=== PATIENT | male | born 1940 | race Caucasian/White ===

== ENCOUNTER 2017-05-14 16:42 | Inpatient (IN) | payer OTHER ==
[~2017-05-14] VITALS: Ht 166.4 cm; Wt 59.6 kg
[~2017-05-14 16:42] MED LIST: ATOR10TA82 PO; CARV6.252 PO; LISI2.5T5 PO; LSX20 PO; WARF5TAB7 PO
[2017-05-14] MEDS ORDERED: ALBUT/IPRATROP 3MG/0.5MG NEB 3 ML VIAL INH STA (16:55)
[2017-05-14 17:35] LABS: BASO % 0.4 %; BASO ABS # 0.05 K/uL (0-0.2); EOS % 1.1 %; HEMATOCRIT 44.5 % (42-52); IG% 3.1 %; LYMPH % 7.2 %; MEAN CELL VOLUME 108.3 fL (80-100); MEAN CORPUSCULAR HEMOGLOBIN 35.8 pg (25-34); MONO % 11.3 %; NEUT % 76.9 %; PLATELET COUNT 286 K/uL (130-400); RED BLOOD COUNT 4.11 M/uL (4.7-6.1); WHITE BLOOD COUNT 11.15 K/uL (4.8-10.8)
[2017-05-14 17:52] LABS: ALT/SGPT 20 U/L (12-78); AST/SGOT 19 U/L (15-37); BLOOD UREA NITROGEN 18 mg/dl (7-18); BUN/CREATININE RATIO 16.7 (10-20); CALCIUM 8.3 mg/dl (8.5-10.1); CARBON DIOXIDE 39 mmol/L (21-32); CHLORIDE 100 mmol/L (98-107); GLUCOSE 59 mg/dl (70-99); MAGNESIUM 2.6 mg/dl (1.8-2.4); POTASSIUM 4.2 mmol/L (3.5-5.1); SODIUM 141 mmol/L (136-145)
[2017-05-14 17:57] LABS: ALB/GLOB RATIO 0.9 (0.9-2); ALKALINE PHOSPHATASE 76 U/L (45-117); C-REACTIVE PROTEIN 3.43 mg/dl (0-0.29); CKMB/CK RATIO 2.5 (0-3.0); INR 3.5 (0.9-1.1); PARTIAL THROMBOPLASTIN RATIO 1.8; PROTHROMBIN TIME (PATIENT) 39.3 SECONDS (9.0-12.0)
[2017-05-14 17:58] LABS: ANISOCYTOSIS PRESENT; COMPLETE YES
[2017-05-14 18:03] LABS: VEN BLD GAS O2 SATURATION < 60.0 %; VEN BLOOD GAS BASE EXCESS 11.4 mmol/L; VENOUS BLOOD GAS PCO2 84 mmHg (38.0-50.0); VENOUS BLOOD GAS PO2 24 mmHg
[2017-05-14] MEDS ORDERED: WARF5TAB7 PO (18:03)
[2017-05-14] MEDS ORDERED: LISI-461 PO (18:03)
--- NOTE | 2017-05-14 18:35 | DIAGNOSTIC IMAGING REPORT ---
CHEST ONE VIEW PORTABLE HISTORY: Sepsis COMPARISON: Chest 11/16/2016. FINDINGS: The heart remains mildly enlarged. The lungs remain mildly hyperexpanded. No new focal lung consolidations to suggest pneumonia. No evidence for pulmonary edema. IMPRESSION: Stable mild cardiomegaly and hyperinflation of the lungs. Electronically signed by: Yrn Novoa M.D. 05/14/2017 6:34 PM Dictated Date/Time: 05/14/2017 6:33 PM
[2017-05-14] MEDS ORDERED: LEVAQUIN 750MG / 150ML D5W IV STA (18:47)
[2017-05-14 19:23] LABS: MANUAL MICROSCOPIC REQUIRED? NO; REVIEW REQ? NO; URINE APPEARANCE CLEAR (CLEAR); URINE BILIRUBIN NEG (NEG); URINE COLOR DK YELLOW; URINE NITRITE NEG (NEG); URINE SPECIFIC GRAVITY 1.021 (1.000-1.030); UROBILINOGEN NEG (NEG); ZZUR CULT IF INDIC CLEAN CATCH YES
--- NOTE | 2017-05-14 20:02 | EMERGENCY ROOM VISIT NOTE ---
History Report prepared by Anabel: Karla Curtis Under the Supervision of: Dr. Eros Borjas D.O. First contact with patient: 16:48 Chief Complaint: CARDIAC ASSESSMENT Stated Complaint: DOCTOR REFERRED;CARDIAC ASSESSMENT Nursing Triage Summary: triage note: pt reports he was seen at urgent care and sent to ed for further eval. pt reports cold symptoms x 9 days. pt reports cough with green sputum "i have been warm and cold." pt when asked if pt short of breath pt reports "no more than usual." History of Present Illness The patient is a 76 year old male who presents to the Emergency Room with complaints of persistent cough starting 9 days ago. His symptoms started with cough, sneezing, and congestion. He initially thought that he had a cold. He went to urgent care today after he found his symptoms were not improving. He received a breathing treatment there which helped somewhat. His cough is productive of a green sputum. He is SOB. He reports swelling in his legs. He denies any hemoptysis, chest pain, nausea, vomiting, or urinary symptoms. He was diagnosed with CHF at the beginning of the year. He is currently on Lasix. He is on a blood thinner. He admits to chewing tobacco. He has been taking his medications. He is not on oxygen normally. Source of History: patient Onset: 9 days ago Position: other (global) Quality: other (cough) Timing: other (persistent) Associated Symptoms: + SOB, No chest pain, No nausea, No vomiting, No urinary symptoms Note: Pt reports leg swelling. Pt denies hemoptysis. Review of Systems See HPI for pertinent positives & negatives. A total of 10 systems reviewed and were otherwise negative. Past Medical & Surgical Medical Problems: (1) Acute respiratory failure with hypoxia and hypercapnia (2) Cardiomyopathy (3) CHF (congestive heart failure) (4) CHF exacerbation Family History FH: heart disease Social History Smoking Status: Former Smoker Marital Status: Housing Status: lives with significant other Occupation Status: retired Current/Historical Medications Scheduled Atorvastatin (Lipitor), 10 MG PO QPM Carvedilol (Coreg), 6.25 MG PO BID Furosemide (Furosemide), 20 MG PO QAM Lisinopril (Lisinopril), 10 MG PO QAM Warfarin Sod (Jantoven), 7.5 MG PO WEDNESDAY AND WEDNESDAY Warfarin Sod (Jantoven), 5 MG PO DIRECTED Allergies Coded Allergies: Prednisone (Verified Allergy, Severe, SWELLING, TACHYCARDIA, RENAL FAILURE , 05/14/17) Physical Exam Vital Signs Date Time Temp Pulse Resp B/P (MAP) Pulse Ox O2 Delivery O2 Flow Rate FiO2 05/14/17 20:05 97 Nasal Cannula 3.0 05/14/17 20:01 120/56 05/14/17 20:00 60 22 86 Room Air 05/14/17 19:31 129/61 05/14/17 19:30 66 20 95 Nasal Cannula 3.0 05/14/17 19:01 121/60 05/14/17 19:00 58 19 97 Nasal Cannula 3.0 05/14/17 18:54 64 26 126/50 97 Nasal Cannula 3.0 05/14/17 17:19 94 Nasal Cannula 4.0 05/14/17 17:04 60 05/14/17 16:47 36.7 69 20 128/69 79 Room Air Physical Exam GENERAL: Patient is awake, alert, and somewhat anxious, but comfortable. EYES: The conjunctivae are clear. The pupils are round and reactive. EARS, NOSE, MOUTH AND THROAT: The nose is without any evidence of any deformity. Mucous membranes are moist tongue is midline NECK: Slight JVD noted, neck is supple. RESPIRATORY: Lung sounds diminished in all lung coronado, significant tachypnea and conversational dyspnea noted. CARDIOVASCULAR: Regular rate and rhythm noted there no murmurs notes to auscultation. GASTROINTESTINAL: The abdomen is soft. Bowel sounds are present in all quadrants. Abdomen is nontender MUSCULOSKELETAL/EXTREMITIES: There is no evidence of gross deformity full range of motion is noted in the hips and shoulders SKIN: Pedal edema bilaterally which is significant. NEUROLOGIC: Patient is awake alert and oriented x3 Medical Decision & Procedures ER Provider Diagnostic Interpretation: X-ray results as stated below per interpretation by me and the radiologist. CHEST ONE VIEW PORTABLE HISTORY: Sepsis COMPARISON: Chest 11/16/2016. FINDINGS: The heart remains mildly enlarged. The lungs remain mildly hyperexpanded. No new focal lung consolidations to suggest pneumonia. No evidence for pulmonary edema. IMPRESSION: Stable mild cardiomegaly and hyperinflation of the lungs. Electronically signed by: Yrn Novoa M.D. 05/14/2017 6:34 PM Dictated Date/Time: 05/14/2017 6:33 PM Laboratory Results 05/14/17 17:15 Red Blood Count 4.11, Mean Corpuscular Volume 108.3, Mean Corpuscular Hemoglobin 35.8, Mean Corpuscular Hemoglobin Concent 33.0, Mean Platelet Volume 11.0, Neutrophils (%) (Auto) 76.9, Lymphocytes (%) (Auto) 7.2, Monocytes (%) ( Auto) 11.3, Eosinophils (%) (Auto) 1.1, Basophils (%) (Auto) 0.4, Neutrophils # (Auto) 8.57, Lymphocytes # (Auto) 0.80, Monocytes # (Auto) 1.26, Eosinophils # ( Auto) 0.12, Basophils # (Auto) 0.05 05/14/17 17:15 Test 05/14/17 17:15 05/14/17 17:29 05/14/17 17:48 05/14/17 18:45 White Blood Count 11.15 K/uL (4.8-10.8) Red Blood Count 4.11 M/uL (4.7-6.1) Hemoglobin 14.7 g/dL (14.0-18.0) Hematocrit 44.5 % (42-52) Mean Corpuscular Volume 108.3 fL (80-100) Mean Corpuscular Hemoglobin 35.8 pg (25-34) Mean Corpuscular Hemoglobin Concent 33.0 g/dl (32-36) Platelet Count 286 K/uL (130-400) Mean Platelet Volume 11.0 fL (7.4-10.4) Neutrophils (%) (Auto) 76.9 % Lymphocytes (%) (Auto) 7.2 % Monocytes (%) (Auto) 11.3 % Eosinophils (%) (Auto) 1.1 % Basophils (%) (Auto) 0.4 % Neutrophils # (Auto) 8.57 K/uL (1.4-6.5) Lymphocytes # (Auto) 0.80 K/uL (1.2-3.4) Monocytes # (Auto) 1.26 K/uL (0.11-0.59) Eosinophils # (Auto) 0.12 K/uL (0-0.5) Basophils # (Auto) 0.05 K/uL (0-0.2) RDW Standard Deviation 88.5 fL (36.4-46.3) RDW Coefficient of Variation 22.1 % (11.5-14.5) Immature Granulocyte % (Auto) 3.1 % Immature Granulocyte # (Auto) 0.35 K/uL (0.00-0.02) Nucleated RBC Absolute Count (auto) 0.06 K/uL (0-0) Nucleated Red Blood Cells % 0.6 % Anisocytosis PRESENT Macrocytosis PRESENT Erythrocyte Sedimentation Rate 15 mm/hr (0-14) Prothrombin Time 39.3 SECONDS (9.0-12.0) Prothromb Time International Ratio 3.5 (0.9-1.1) Activated Partial Thromboplast Time 45.9 SECONDS (21.0-31.0) Partial Thromboplastin Ratio 1.8 D-Dimer < 190 ug/L FEU (0-500) Anion Gap 2.0 mmol/L (3-11) Est Creatinine Clear Calc Drug Dose 48.8 ml/min Estimated GFR () 76.2 Estimated GFR (Non- 65.8 BUN/Creatinine Ratio 16.7 (10-20) Calcium Level 8.3 mg/dl (8.5-10.1) Phosphorus Level 3.0 mg/dl (2.5-4.9) Magnesium Level 2.6 mg/dl (1.8-2.4) Total Bilirubin 0.7 mg/dl (0.2-1) Aspartate Amino Transf (AST/SGOT) 19 U/L (15-37) Alanine Aminotransferase (ALT/SGPT) 20 U/L (12-78) Alkaline Phosphatase 76 U/L (45-117) Total Creatine Kinase 79 U/L (39-308) Creatine Kinase MB 2.0 ng/ml (0.5-3.6) Creatine Kinase MB Ratio 2.5 (0-3.0) Troponin I < 0.015 ng/ml (0-0.045) C-Reactive Protein 3.43 mg/dl (0-0.29) Pro-B-Type Natriuretic Peptide 4659 pg/ml (0-900) Total Protein 6.8 gm/dl (6.4-8.2) Albumin 3.3 gm/dl (3.4-5.0) Globulin 3.5 gm/dl (2.5-4.0) Albumin/Globulin Ratio 0.9 (0.9-2) Bedside Lactic Acid Venous 0.53 mmol/L (0.90-1.70) Venous Blood pH 7.31 (7.36-7.41) Venous Blood Partial Pressure CO2 84 mmHg (38.0-50.0) Venous Blood Partial Pressure O2 24 mmHg Venous Blood HCO3 41 mmol/L Venous Blood Oxygen Saturation < 60.0 % Venous Blood Base Excess 11.4 mmol/L Urine Color DK YELLOW Urine Appearance CLEAR (CLEAR) Urine pH 5.0 (4.5-7.5) Urine Specific [place] 1.021 (1.000-1.030) Urine Protein NEG (NEG) Urine Glucose (UA) NEG (NEG) Urine Ketones NEG (NEG) Urine Occult Blood TRACE (NEG) Urine Nitrite NEG (NEG) Urine Bilirubin NEG (NEG) Urine Urobilinogen NEG (NEG) Urine Leukocyte Esterase MODERATE (NEG) Urine WBC (Auto) 10-30 /hpf (0-5) Urine RBC (Auto) 0-4 /hpf (0-4) Urine Hyaline Casts (Auto) 1-5 /lpf (0-5) Urine Epithelial Cells (Auto) 10-20 /lpf (0-5) Urine Bacteria (Auto) NEG (NEG) Test 05/14/17 20:15 Bedside Glucose 95 mg/dl (70-99) Laboratory results per my review. Medications Administered Medications (Trade) Dose Ordered Sig/Manjula Route Start Time Stop Time Status Last Admin Dose Admin Albuterol/ Ipratropium (Duoneb) 3 ml NOW STAT INH 05/14/17 16:55 05/14/17 16:56 DC 05/14/17 16:55 3 ML Levofloxacin (Levaquin / D5W) 750 mg NOW STAT IV 05/14/17 18:47 05/14/17 18:51 DC 05/14/17 18:56 750 MG ECG Indication: SOB/dyspnea Rate (beats per minute): 59 Rhythm: sinus bradycardia Findings: Q waves (Anterior), ST depression (Inferior), no ectopy Comparison ECG Date: 17-Nov-2016 Change: no significant change ED Course 164: The patient was evaluated in room B10. A complete history and physical examination were performed. 165: Duoneb 3 ml INH. 1847: Levofloxacin 750 mg IV. 1855: Upon reevaluation, the patient is resting comfortably. I discussed results and treatment plan with him. He verbalizes agreement and understanding. The patient will be evaluated for further management and care. 1934: I discussed the patient's case with CHANCE Banuelos - hospitalist. The patient will be evaluated for further management. Medical Decision Prior records/ancillary studies reviewed. Triage Nursing notes reviewed. Additional history obtained from the family. The patient's history was concerning for respiratory difficulties. Differential diagnosis: Etiologies such as infections, reactive airway disease, pneumonia, pneumothorax , COPD, CHF, cardiac ischemia, pulmonary embolism, musculoskeletal, gastrointestinal, as well as others were entertained. Medication Reconciliation: I attest that I have personally reviewed the patient' s current medications list. The patient is a 76-year-old male who presented to the emergency department for an evaluation of shortness of breath. The patient does have a history of congestive heart failure but states that his extremities are not more swollen than usual. His exam appeared to be consistent with significant bronchospasm. He was seen by his primary care physician's office and sent to the emergency department. He was given a DuoNeb prior to arrival. He was treated with a DuoNeb in the emergency Department as well as IV antibiotics. He does complain of productive cough with colored sputum. I discussed the patient's laboratory and radiographic studies with him. His d-dimer was negative. Chest x-ray did not show a definite pneumonia but clinically I feel the patient may have pneumonia. I discussed his case with the on-call [facility] hospitalist. They 've agreed to evaluate the patient in the emergency department for further management and disposition. Consults Time Called: [phone] Consulting Physician: CHANCE Banuelos - hospitalist Returned Call: [phone] I discussed the patient's case with him. The patient will be evaluated for further management. Impression Primary Impression: Acute bronchitis Additional Impressions: Hypoxia Respiratory acidosis SOB (shortness of breath) UTI (urinary tract infection) Scribe Attestation The scribe's documentation has been prepared under my direction and personally reviewed by me in its entirety. I confirm that the note above accurately reflects all work, treatment, procedures, and medical decision making performed by me. Departure Information Dispostion Being Evaluated By Hospitalist Referrals Kanika Daniels MD (PCP) Patient Instructions My [facility] [address] Problem Qualifiers Primary Impression: Acute bronchitis Bronchitis organism: unspecified organism Qualified Codes: J20.9 - Acute bronchitis, unspecified Additional Impressions: UTI (urinary tract infection) Urinary tract infection type: site unspecified Hematuria presence: without hematuria Qualified Codes: N39.0 - Urinary tract infection, site not specified
[2017-05-14] MEDS ORDERED: ZOLPIDEM TARTRATE 5 MG TAB PO PRN (20:15)
[2017-05-14] MEDS ORDERED: ACETAMINOPHEN 325 MG TAB PO PRN (20:15)
[2017-05-14] MEDS ORDERED: ONDANSETRON INJ 2 MG/ML 2 ML VIAL IV PRN (20:15)
[2017-05-14] MEDS ORDERED: NITROGLYCERIN 0.4 MG SL PER TAB CHARGE SL PRN (20:15)
[2017-05-14 20:43] VITALS: O2SAT 95
[2017-05-14] MEDS ORDERED: LEVALBUTEROL 1.25MG/0.5ML NEB INH PRN (21:00)
[2017-05-14] MEDS ORDERED: IPRATROPIUM BROMIDE NEB SOLN 0.02% 2.5 ML VIAL INH PRN (21:00)
[2017-05-14] MEDS ORDERED: LEVALBUTEROL/IPRATROPIUM NEB INH SCH (21:00)
[2017-05-14] MEDS: LEVALBUTEROL 1.25MG/0.5ML NEB INH SCH (21:00)
[2017-05-14] MEDS: IPRATROPIUM BROMIDE NEB SOLN 0.02% 2.5 ML VIAL INH SCH (21:00)
[2017-05-14 21:16] VITALS: BP 143/57; PULSE 57; TEMP 37; O2SAT 95; Ht 166.4 cm; Wt 59.6 kg
[2017-05-14] MEDS: CEFTRIAXONE SOD INJ 1 GM in DEXTROSE 5% ADD-VANTAGE 50ML 50 ML IV SCH (21:32)
[2017-05-14] MEDS: CARVEDILOL 6.25 MG TAB PO SCH (21:33)
[2017-05-14] MEDS: GUAIFENESIN 600 MG TABCR PO SCH (21:33)
[2017-05-14] MEDS: ATORVASTATIN 10 MG TAB PO SCH (21:34)
--- NOTE | 2017-05-14 22:01 | History and Physical ---
History & Physical Date & Time of Service: May 14, 2017 at 22:01 Chief Complaint: Acute Respiratory Failure With Hypoxia And Primary Care Physician: Kanika Daniels MD History of Present Illness Source: patient The patient is a 76-year-old male who presents to emergency department with a persistent cough productive of green sputum and shortness of breath that began 9 days prior to arrival. He was diagnosed with CHF earlier in the year and been continuing to take Lasix since that time, but has noted worsening swelling in his legs. He has not had any recent travel or sick exposures. Family History FH: heart disease Social History Smoking Status: Former Smoker Alcohol Use: none Drug Use: none Marital Status: Housing status: lives with significant other Occupational Status: retired Multi-Drug Resistant Organisms History of MDRO: No Allergies Coded Allergies: Prednisone (Verified Allergy, Severe, SWELLING, TACHYCARDIA, RENAL FAILURE , 05/14/17) Home Medications Scheduled Atorvastatin (Lipitor), 10 MG PO QPM Carvedilol (Coreg), 6.25 MG PO BID Furosemide (Furosemide), 20 MG PO QAM Lisinopril (Lisinopril), 10 MG PO QAM Warfarin Sod (Jantoven), 7.5 MG PO WEDNESDAY AND WEDNESDAY Warfarin Sod (Jantoven), 5 MG PO DIRECTED Review of Systems The patient denies chest pain, palpitations, sore throat, fevers, chills, sweats, weight change, nausea, vomiting, abdominal pain, pelvic pain, blood in urine or stool, dysuria, urinary frequency or urgency, headache, memory loss, rash, abnormal bruising or bleeding, imbalance, focal weakness, numbness or tingling in arms or legs, arthralgias or myalgias, back or neck pain, night sweats, or allergy symptoms. The review of systems is otherwise negative other than for that already noted above, and at least 10 systems have been reviewed. Physical Exam Vital Signs Date Time Temp Pulse Resp B/P (MAP) Pulse Ox O2 Delivery O2 Flow Rate FiO2 05/14/17 21:16 37.0 57 21 143/57 95 Room Air 05/14/17 20:31 150/55 05/14/17 20:06 60 19 94 Nasal Cannula 3.0 05/14/17 20:05 97 Nasal Cannula 3.0 05/14/17 20:01 120/56 05/14/17 20:00 60 22 86 Room Air 05/14/17 19:31 129/61 05/14/17 19:30 66 20 95 Nasal Cannula 3.0 05/14/17 19:01 121/60 05/14/17 19:00 58 19 97 Nasal Cannula 3.0 05/14/17 18:54 64 26 126/50 97 Nasal Cannula 3.0 05/14/17 17:19 94 Nasal Cannula 4.0 05/14/17 17:04 60 05/14/17 16:47 36.7 69 20 128/69 79 Room Air The patient is awake, looks thin, alert and oriented 3, normocephalic and atraumatic, lying in bed and in no acute distress. HEENT--PERRL, EOMI, mucous membranes and oropharynx dry. Neck--supple, no JVD or bruits, thyroid normal, trachea midline, no adenopathy. Heart--normal S1 and S2, no extra beats, no murmurs, rubs or gallops. Lungs--coarse breath sounds bilaterally, no respiratory distress, no accessory muscle use. Abdomen--normal bowel sounds and soft, nontender and nondistended, no hernias or masses, no organomegaly. Extremities--no cyanosis, clubbing. There is bilaterally pretibial 1+ pitting Edema. There are good distal pulses b/l. Dermatologic--early venous stasis changes bilaterally Neurologic--cranial nerves II through XII grossly intact. Rheumatologic--normal range of motion. Psychiatric--normal affect. Diagnostics Laboratory Results Results Past 24 Hours Test 05/14/17 17:15 05/14/17 17:29 05/14/17 17:48 05/14/17 18:45 Range/Units White Blood Count 11.15 4.8-10.8 K/uL Red Blood Count 4.11 4.7-6.1 M/uL Hemoglobin 14.7 14.0-18.0 g/dL Hematocrit 44.5 42-52 % Mean Corpuscular Volume 108.3 80-100 fL Mean Corpuscular Hemoglobin 35.8 25-34 pg Mean Corpuscular Hemoglobin Concent 33.0 32-36 g/dl Platelet Count 286 130-400 K/uL Mean Platelet Volume 11.0 7.4-10.4 fL Neutrophils (%) (Auto) 76.9 % Lymphocytes (%) (Auto) 7.2 % Monocytes (%) (Auto) 11.3 % Eosinophils (%) (Auto) 1.1 % Basophils (%) (Auto) 0.4 % Neutrophils # (Auto) 8.57 1.4-6.5 K/uL Lymphocytes # (Auto) 0.80 1.2-3.4 K/uL Monocytes # (Auto) 1.26 0.11-0.59 K/uL Eosinophils # (Auto) 0.12 0-0.5 K/uL Basophils # (Auto) 0.05 0-0.2 K/uL RDW Standard Deviation 88.5 36.4-46.3 fL RDW Coefficient of Variation 22.1 11.5-14.5 % Immature Granulocyte % (Auto) 3.1 % Immature Granulocyte # (Auto) 0.35 0.00-0.02 K/uL Nucleated RBC Absolute Count (auto) 0.06 0-0 K/uL Nucleated Red Blood Cells % 0.6 % Anisocytosis PRESENT Macrocytosis PRESENT Erythrocyte Sedimentation Rate 15 0-14 mm/hr Prothrombin Time 39.3 9.0-12.0 SECONDS Prothromb Time International Ratio 3.5 0.9-1.1 Activated Partial Thromboplast Time 45.9 21.0-31.0 SECONDS Partial Thromboplastin Ratio 1.8 D-Dimer < 190 0-500 ug/L FEU Sodium Level 141 136-145 mmol/L Potassium Level 4.2 3.5-5.1 mmol/L Chloride Level 100 98-107 mmol/L Carbon Dioxide Level 39 21-32 mmol/L Anion Gap 2.0 3-11 mmol/L Blood Urea Nitrogen 18 7-18 mg/dl Creatinine 1.10 0.60-1.40 mg/dl Est Creatinine Clear Calc Drug Dose 48.8 ml/min Estimated GFR () 76.2 Estimated GFR (Non- 65.8 BUN/Creatinine Ratio 16.7 10-20 Random Glucose 59 70-99 mg/dl Calcium Level 8.3 8.5-10.1 mg/dl Phosphorus Level 3.0 2.5-4.9 mg/dl Magnesium Level 2.6 1.8-2.4 mg/dl Total Bilirubin 0.7 0.2-1 mg/dl Aspartate Amino Transf (AST/SGOT) 19 15-37 U/L Alanine Aminotransferase (ALT/SGPT) 20 12-78 U/L Alkaline Phosphatase 76 45-117 U/L Total Creatine Kinase 79 39-308 U/L Creatine Kinase MB 2.0 0.5-3.6 ng/ml Creatine Kinase MB Ratio 2.5 0-3.0 Troponin I < 0.015 0-0.045 ng/ml C-Reactive Protein 3.43 0-0.29 mg/dl Pro-B-Type Natriuretic Peptide 4659 0-900 pg/ml Total Protein 6.8 6.4-8.2 gm/dl Albumin 3.3 3.4-5.0 gm/dl Globulin 3.5 2.5-4.0 gm/dl Albumin/Globulin Ratio 0.9 0.9-2 Bedside Lactic Acid Venous 0.53 0.90-1.70 mmol/L Venous Blood pH 7.31 7.36-7.41 Venous Blood Partial Pressure CO2 84 38.0-50.0 mmHg Venous Blood Partial Pressure O2 24 mmHg Venous Blood HCO3 41 mmol/L Venous Blood Oxygen Saturation < 60.0 % Venous Blood Base Excess 11.4 mmol/L Urine Color DK YELLOW Urine Appearance CLEAR CLEAR Urine pH 5.0 4.5-7.5 Urine Specific [place] 1.021 1.000-1.030 Urine Protein NEG NEG Urine Glucose (UA) NEG NEG Urine Ketones NEG NEG Urine Occult Blood TRACE NEG Urine Nitrite NEG NEG Urine Bilirubin NEG NEG Urine Urobilinogen NEG NEG Urine Leukocyte Esterase MODERATE NEG Urine WBC (Auto) 10-30 0-5 /hpf Urine RBC (Auto) 0-4 0-4 /hpf Urine Hyaline Casts (Auto) 1-5 0-5 /lpf Urine Epithelial Cells (Auto) 10-20 0-5 /lpf Urine Bacteria (Auto) NEG NEG Test 05/14/17 20:15 Range/Units Bedside Glucose 95 70-99 mg/dl Microbiology Results 05/14/17 Blood Culture, Received Pending 05/14/17 Blood Culture, Received Pending 05/14/17 Urine Culture, Received Pending Diagnostic Radiology Patient Name: JEEVAN GREEN Unit Number: [id number] Dictated: 05/14/171832 Transcribed: 05/14/171832 PA Printed Date/Time: [~ rep prt dt]/[~ rep prt tm] [~ rep ct labl] - [~ rep ct ivnm] [facility] [place] [address] Dictated: 05/14/171832 Transcribed: 05/14/171832 CESARIO Printed Date/Time: [~ rep prt dt]/[~ rep prt tm] [~ rep ct labl] - [~ rep ct ivnm] [~ rep ct add3]] CHEST ONE VIEW PORTABLE HISTORY: Sepsis COMPARISON: Chest 11/16/2016. FINDINGS: The heart remains mildly enlarged. The lungs remain mildly hyperexpanded. No new focal lung consolidations to suggest pneumonia. No evidence for pulmonary edema. IMPRESSION: Stable mild cardiomegaly and hyperinflation of the lungs. Electronically signed by: Yrn Novoa M.D. 05/14/2017 6:34 PM Dictated Date/Time: 05/14/2017 6:33 PM The status of this report is Signed. Draft = Not yet reviewed or approved by Radiologist. Signed = Reviewed and approved by Radiologist. <AttendingPhy></AttendingPhy> <FamilyPhy>Duy Alcantara PA-C</FamilyPhy> < PrimaryPhy>Kanika Daniels MD</PrimaryPhy> <UnitNumber>[id number]</UnitNumber > <VisitNumber>[id number]</VisitNumber> <PatientName>JEEVAN GREEN</ PatientName> <DateOfBirth>1940</DateOfBirth> <Location>[facility]</Location> < ServiceDate>05/14/17</ServiceDate> <MNE>ESINDI</MNE> <OrderingPhy>Eros Borjas D.O.</OrderingPhy> <OrderingPhyMNE>f rep ord dr robledo</OrderingPhyMNE> <DictatingPhyMNE>f rep dict dr robledo</DictatingPhyMNE> <CCListMNE>f rep ct mne</ CCListMNE> <AdmittingPhyMNE>f pt admit dr robledo</AdmittingPhyMNE> <AttendingPhyMNE >f pt attend dr robledo</AttendingPhyMNE> <ConsultingPhyMNE>f pt consult dr robledo</ConsultingPhyMNE> <FamilyPhyMNE>f pt fam dr robledo</FamilyPhyMNE> <OtherPhyMNE>f pt other dr robledo</OtherPhyMNE> < PrimaryPhyMNE>f pt prim care dr robledo</PrimaryPhyMNE> <ReferringPhyMNE>f pt referring dr robledo</ReferringPhyMNE> EKG EKG shows sinus bradycardia at 59 bpm, IVCD, 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 Impression Assessment and Plan Acute respiratory failure with hypoxia and hypercapnia secondary to acute bronchitis--the patient will be admitted to the telemetry unit. He'll be placed on ceftriaxone 1 g IV daily, levofloxacin 500 mg IV every 24 hours, guaifenesin extended release 600 mg by mouth twice a day, Xopenex/Atrovent nebulizer every 6 hours while awake and every 2 hours when necessary. Continue nasal cannula oxygen, titrate to keep pulse ox greater than or equal to 92%. Steroids are to be avoided in this case, as he's had a significant adverse reaction to prednisone in the past. Cardiomyopathy/hypertension/CHF--continue carvedilol 25 mg by mouth twice a day , lisinopril 10 mg by mouth every morning and furosemide 20 mg by mouth every morning. Warfarin will be held as INR is 3.5, and adjusted dosing can be resumed after labs return tomorrow. We'll repeat troponin in the a.m. Hyperlipidemia-continue atorvastatin 10 mg by mouth every afternoon. Hypoglycemia--blood sugar on admission was 59 and his PRP, but Accu-Cheks rechecked Later was 95. The patient had not eaten all day when the labs were first checked, and has not had issues with hypoglycemia in the past. Level of Care Telemetry Advanced Directives Existing Advance Directive: No Existing Living Will: No Existing Power of Director Outcomes: No Resuscitation Status FULL RESUSCITATION VTE Prophylaxis VTE Risk Assessment Done? Y/N: Yes Risk Level: Moderate Given or contraindicated: Warfarin (Coumadin)
[2017-05-15] VITALS (11 sets, daily range): BP systolic 89–126; BP diastolic 41–56; PULSE 51–86; TEMP 36.4–36.8; O2SAT 79–98
[2017-05-15] MEDS: IPRATROPIUM BROMIDE NEB SOLN 0.02% 2.5 ML VIAL INH SCH ×4 (04:15→18:33)
[2017-05-15] MEDS: LEVALBUTEROL 1.25MG/0.5ML NEB INH SCH ×4 (04:15→18:33)
[2017-05-15 05:39] LABS: HEMATOCRIT 38.8 % (42-52); MEAN CORPUSCULAR HEMOGLOBIN 35.4 pg (25-34); MEAN CORPUSCULAR HGB CONC 32.5 g/dl (32-36); MEAN PLATELET VOLUME 10.4 fL (7.4-10.4); PLATELET COUNT 228 K/uL (130-400); RED BLOOD COUNT 3.56 M/uL (4.7-6.1); WHITE BLOOD COUNT 9.23 K/uL (4.8-10.8)
[2017-05-15 05:51] LABS: INR 3.3 (0.9-1.1); PARTIAL THROMBOPLASTIN RATIO 1.9; PROTHROMBIN TIME (PATIENT) 37.4 SECONDS (9.0-12.0)
[2017-05-15 06:17] LABS: ANISOCYTOSIS PRESENT; BUN/CREATININE RATIO 17.9 (10-20); CALCIUM 7.8 mg/dl (8.5-10.1); COMPLETE YES; CREATININE 0.97 mg/dl (0.60-1.40); EOSINOPHIL % 0.9 %; LYMPH ABS # 0.65 K/uL (1.2-3.4); MAGNESIUM 2.5 mg/dl (1.8-2.4); META ABS # 0.24 K/uL (0-0); METAMYELOCYTE % 2.6 %; MYELOCYTE % 0.9 %; NEUTROPHILS % 80.8 %; POTASSIUM 4.5 mmol/L (3.5-5.1); TARGET CELLS 1+
--- NOTE | 2017-05-15 08:29 | Progress Note ---
Subjective Date of Service: May 15, 2017. Subjective this pt remains short of breath with a non productive cough, no chest pain and only modest improvement Problem List Medical Problems: (1) Acute bronchitis Status: Acute (2) CHF (congestive heart failure) Status: Acute (3) Hypoxia Status: Acute (4) Hypoxia Status: Acute (5) Hypoxia Status: Acute (6) Respiratory acidosis Status: Acute (7) SOB (shortness of breath) Status: Acute (8) UTI (urinary tract infection) Status: Acute Review of Systems Constitutional: + weakness, + fatigue, No fever, No chills Respiratory: + cough, + shortness of breath, + dyspnea on exertion, + dyspnea at rest, No sputum Cardiac: No chest pain, No orthopnea, No PND, No edema Abdomen: No pain, No nausea, No vomiting, No diarrhea Male : No dysuria, No urinary frequency Objective Vital Signs Date Time Temp Pulse Resp B/P (MAP) Pulse Ox O2 Delivery O2 Flow Rate FiO2 05/15/17 07:56 36.6 51 14 101/53 (69) 92 Nasal Cannula 4.0 05/15/17 07:02 54 20 94 Nasal Cannula 2.0 05/15/17 04:12 54 18 95 Nasal Cannula 2.0 05/15/17 04:00 Nasal Cannula 2.0 05/15/17 03:54 36.4 57 20 101/48 (65) 92 Nasal Cannula 2.0 05/15/17 00:00 36.7 57 20 89/41 (57) 96 Nasal Cannula 2.0 05/14/17 23:59 Nasal Cannula 2.0 05/14/17 21:16 37.0 57 21 143/57 95 Room Air 05/14/17 20:43 95 Nasal Cannula 05/14/17 20:31 150/55 05/14/17 20:06 60 19 94 Nasal Cannula 3.0 05/14/17 20:05 97 Nasal Cannula 3.0 05/14/17 20:01 120/56 05/14/17 20:00 60 22 86 Room Air 05/14/17 19:31 129/61 05/14/17 19:30 66 20 95 Nasal Cannula 3.0 05/14/17 19:01 121/60 05/14/17 19:00 58 19 97 Nasal Cannula 3.0 05/14/17 18:54 64 26 126/50 97 Nasal Cannula 3.0 05/14/17 17:19 94 Nasal Cannula 4.0 05/14/17 17:04 60 05/14/17 16:47 36.7 69 20 128/69 79 Room Air Physical Exam General Appearance: WD/WN, + mild distress Eyes: PERRL, EOMI Neck: supple, thyroid normal Respiratory/Chest: chest non-tender, + decreased breath sounds, + accessory muscle use, + rales Cardiovascular: regular rate, rhythm, no murmur Abdomen: normal bowel sounds, non tender, soft Extremities: no pedal edema, no calf tenderness Neurologic/Psychiatric: alert, oriented x 3 Laboratory Results Last 24 Hours Test 05/14/17 17:15 05/14/17 17:29 05/14/17 17:48 05/14/17 18:45 White Blood Count 11.15 K/uL Red Blood Count 4.11 M/uL Hemoglobin 14.7 g/dL Hematocrit 44.5 % Mean Corpuscular Volume 108.3 fL Mean Corpuscular Hemoglobin 35.8 pg Mean Corpuscular Hemoglobin Concent 33.0 g/dl Platelet Count 286 K/uL Mean Platelet Volume 11.0 fL Neutrophils (%) (Auto) 76.9 % Lymphocytes (%) (Auto) 7.2 % Monocytes (%) (Auto) 11.3 % Eosinophils (%) (Auto) 1.1 % Basophils (%) (Auto) 0.4 % Neutrophils # (Auto) 8.57 K/uL Lymphocytes # (Auto) 0.80 K/uL Monocytes # (Auto) 1.26 K/uL Eosinophils # (Auto) 0.12 K/uL Basophils # (Auto) 0.05 K/uL RDW Standard Deviation 88.5 fL RDW Coefficient of Variation 22.1 % Immature Granulocyte % (Auto) 3.1 % Immature Granulocyte # (Auto) 0.35 K/uL Nucleated RBC Absolute Count (auto) 0.06 K/uL Nucleated Red Blood Cells % 0.6 % Anisocytosis PRESENT Macrocytosis PRESENT Erythrocyte Sedimentation Rate 15 mm/hr Prothrombin Time 39.3 SECONDS Prothromb Time International Ratio 3.5 Activated Partial Thromboplast Time 45.9 SECONDS Partial Thromboplastin Ratio 1.8 D-Dimer < 190 ug/L FEU Sodium Level 141 mmol/L Potassium Level 4.2 mmol/L Chloride Level 100 mmol/L Carbon Dioxide Level 39 mmol/L Anion Gap 2.0 mmol/L Blood Urea Nitrogen 18 mg/dl Creatinine 1.10 mg/dl Est Creatinine Clear Calc Drug Dose 48.8 ml/min Estimated GFR () 76.2 Estimated GFR (Non- 65.8 BUN/Creatinine Ratio 16.7 Random Glucose 59 mg/dl Calcium Level 8.3 mg/dl Phosphorus Level 3.0 mg/dl Magnesium Level 2.6 mg/dl Total Bilirubin 0.7 mg/dl Aspartate Amino Transf (AST/SGOT) 19 U/L Alanine Aminotransferase (ALT/SGPT) 20 U/L Alkaline Phosphatase 76 U/L Total Creatine Kinase 79 U/L Creatine Kinase MB 2.0 ng/ml Creatine Kinase MB Ratio 2.5 Troponin I < 0.015 ng/ml C-Reactive Protein 3.43 mg/dl Pro-B-Type Natriuretic Peptide 4659 pg/ml Total Protein 6.8 gm/dl Albumin 3.3 gm/dl Globulin 3.5 gm/dl Albumin/Globulin Ratio 0.9 Bedside Lactic Acid Venous 0.53 mmol/L Venous Blood pH 7.31 Venous Blood Partial Pressure CO2 84 mmHg Venous Blood Partial Pressure O2 24 mmHg Venous Blood HCO3 41 mmol/L Venous Blood Oxygen Saturation < 60.0 % Venous Blood Base Excess 11.4 mmol/L Urine Color DK YELLOW Urine Appearance CLEAR Urine pH 5.0 Urine Specific [place] 1.021 Urine Protein NEG Urine Glucose (UA) NEG Urine Ketones NEG Urine Occult Blood TRACE Urine Nitrite NEG Urine Bilirubin NEG Urine Urobilinogen NEG Urine Leukocyte Esterase MODERATE Urine WBC (Auto) 10-30 /hpf Urine RBC (Auto) 0-4 /hpf Urine Hyaline Casts (Auto) 1-5 /lpf Urine Epithelial Cells (Auto) 10-20 /lpf Urine Bacteria (Auto) NEG Test 05/14/17 20:15 05/15/17 05:08 Bedside Glucose 95 mg/dl White Blood Count 9.23 K/uL Red Blood Count 3.56 M/uL Hemoglobin 12.6 g/dL Hematocrit 38.8 % Mean Corpuscular Volume 109.0 fL Mean Corpuscular Hemoglobin 35.4 pg Mean Corpuscular Hemoglobin Concent 32.5 g/dl Platelet Count 228 K/uL Mean Platelet Volume 10.4 fL RDW Standard Deviation 89.3 fL RDW Coefficient of Variation 22.2 % Nucleated RBC Absolute Count (auto) 0.05 K/uL Neutrophils % (Manual) 80.8 % Lymphocytes % (Manual) 7.0 % Monocytes % (Manual) 7.8 % Eosinophils % (Manual) 0.9 % Metamyelocytes % 2.6 % Myelocytes % 0.9 % Nucleated Red Blood Cells % 0.6 % Neutrophils # (Manual) 7.46 K/uL Total Absolute Neutrophils 7.46 K/uL Lymphocytes # (Manual) 0.65 K/uL Total Absolute Lymphocytes 0.65 K/uL Monocytes # (Manual) 0.72 K/uL Eosinophils # (Manual) 0.08 K/uL Metamyelocytes # 0.24 K/uL Myelocytes # 0.08 K/uL Anisocytosis PRESENT Target Cells 1+ Prothrombin Time 37.4 SECONDS Prothromb Time International Ratio 3.3 Activated Partial Thromboplast Time 48.2 SECONDS Partial Thromboplastin Ratio 1.9 Sodium Level 143 mmol/L Potassium Level 4.5 mmol/L Chloride Level 100 mmol/L Carbon Dioxide Level 38 mmol/L Anion Gap 5.0 mmol/L Blood Urea Nitrogen 17 mg/dl Creatinine 0.97 mg/dl Est Creatinine Clear Calc Drug Dose 55.3 ml/min Estimated GFR () 88.8 Estimated GFR (Non- 76.6 BUN/Creatinine Ratio 17.9 Random Glucose 77 mg/dl Calcium Level 7.8 mg/dl Magnesium Level 2.5 mg/dl Troponin I 0.017 ng/ml Assessment and Plan 76 M with current tobacco use presents with Acute hypoxic respiratory failure and bronchitis Acute respiratory failure with hypoxia and hypercapnia secondary to acute bronchitis-- ceftriaxone 1 g IV daily, levofloxacin 500 mg IV, guaifenesin extended release 600 mg by mouth twice a day, Xopenex/Atrovent nebulizer every 6 hours while awake and every 2 hours when necessary. Since his adverse reaction to steroids was Heart failure, he agrees to cautious use of steroids here as he has not had great improvement since admission Cardiomyopathy/hypertension/Chronc systolic HF, PAF--carvedilol 25 mg, lisinopril 10 mg and furosemide 20 mg by mouth every morning. Warfarin will be held as INR is 3.5, Hyperlipidemia-atorvastatin 10 mg
[2017-05-15] MEDS: CARVEDILOL 6.25 MG TAB PO SCH ×2 (09:01→19:58)
[2017-05-15] MEDS: FUROSEMIDE 20 MG TAB PO SCH (09:02)
[2017-05-15] MEDS: LISINOPRIL 10 MG TAB PO SCH (09:02)
[2017-05-15] MEDS: GUAIFENESIN 600 MG TABCR PO SCH ×2 (09:02→19:58)
[2017-05-15] MEDS ORDERED: METHYLPREDNISOLONE IV 40 MG in SYRINGE 0 ML IV SCH (15:00)
[2017-05-15] MEDS: ATORVASTATIN 10 MG TAB PO SCH (19:58)
[2017-05-15] MEDS: CEFTRIAXONE SOD INJ 1 GM in DEXTROSE 5% ADD-VANTAGE 50ML 50 ML IV SCH (21:47)
[2017-05-15] MEDS: LEVOFLOXACIN / D5W 750 MG in PREMIXED IN D5W 150 ML IV SCH (21:48)
[2017-05-16] VITALS (13 sets, daily range): BP systolic 99–142; BP diastolic 43–71; PULSE 50–74; TEMP 36.4–36.7; O2SAT 78–98
[2017-05-16] MEDS: LEVALBUTEROL 1.25MG/0.5ML NEB INH SCH ×3 (02:08→19:54)
[2017-05-16] MEDS: IPRATROPIUM BROMIDE NEB SOLN 0.02% 2.5 ML VIAL INH SCH ×3 (02:08→19:54)
[2017-05-16 05:40] LABS: HEMATOCRIT 40.1 % (42-52); MEAN CELL VOLUME 107.8 fL (80-100); MEAN CORPUSCULAR HEMOGLOBIN 36.3 pg (25-34); MEAN CORPUSCULAR HGB CONC 33.7 g/dl (32-36); MEAN PLATELET VOLUME 10.4 fL (7.4-10.4); PLATELET COUNT 246 K/uL (130-400); RED BLOOD COUNT 3.72 M/uL (4.7-6.1); WHITE BLOOD COUNT 7.41 K/uL (4.8-10.8)
[2017-05-16 05:55] LABS: INR 1.7 (0.9-1.1); PARTIAL THROMBOPLASTIN RATIO 1.5; PROTHROMBIN TIME (PATIENT) 18.5 SECONDS (9.0-12.0)
[2017-05-16] MEDS: METHYLPREDNISOLONE IV 40 MG in SYRINGE 0 ML IV SCH ×2 (05:59→17:15)
[2017-05-16 06:03] LABS: ANISOCYTOSIS PRESENT; COMPLETE YES; LYMPH ABS # 0.19 K/uL (1.2-3.4); LYMPHOCYTE % 2.6 %; MYELOCYTE % 2.6 %; NEUTROPHILS % 93.9 %; POLYCHROMASIA 1+
[2017-05-16 06:15] LABS: BUN/CREATININE RATIO 20.9 (10-20); CALCIUM 8.2 mg/dl (8.5-10.1); CREATININE 0.99 mg/dl (0.60-1.40); MAGNESIUM 2.6 mg/dl (1.8-2.4); POTASSIUM 4.8 mmol/L (3.5-5.1)
[2017-05-16] MEDS: GUAIFENESIN 600 MG TABCR PO SCH ×2 (08:04→21:21)
[2017-05-16] MEDS: CARVEDILOL 6.25 MG TAB PO SCH ×2 (08:04→21:21)
[2017-05-16] MEDS: FUROSEMIDE 20 MG TAB PO SCH (08:05)
[2017-05-16] MEDS: LISINOPRIL 10 MG TAB PO SCH (08:05)
--- NOTE | 2017-05-16 12:42 | Progress Note ---
Subjective Date of Service: May 16, 2017. Subjective this pt is feeling well but has significant hypoxia that persists, less wheezing. no chest pain Problem List Medical Problems: (1) Acute bronchitis Status: Acute (2) CHF (congestive heart failure) Status: Acute (3) Hypoxia Status: Acute (4) Hypoxia Status: Acute (5) Hypoxia Status: Acute (6) Respiratory acidosis Status: Acute (7) SOB (shortness of breath) Status: Acute (8) UTI (urinary tract infection) Status: Acute Review of Systems Constitutional: No fever, No chills Respiratory: + shortness of breath, + dyspnea on exertion, + dyspnea at rest, No cough, No sputum Cardiac: No chest pain, No edema Abdomen: No pain, No nausea, No vomiting, No diarrhea Musculoskeletal: No joint pain, No muscle pain, No swelling Male : No dysuria, No urinary frequency Psychiatric: No depression symptoms, No anhedonism, No anxiety Objective Vital Signs Date Time Temp Pulse Resp B/P (MAP) Pulse Ox O2 Delivery O2 Flow Rate FiO2 05/16/17 04:00 Nasal Cannula 2.0 05/16/17 03:29 36.4 57 19 107/57 (74) 94 Nasal Cannula 2.0 05/16/17 02:08 50 20 94 Nasal Cannula 2.0 05/15/17 23:59 Nasal Cannula 2.0 05/15/17 23:59 Nasal Cannula 05/15/17 23:10 36.7 64 18 126/55 (78) 94 Nasal Cannula 2.0 05/15/17 20:00 Nasal Cannula 2.0 05/15/17 19:56 36.8 62 20 123/56 (78) 94 Nasal Cannula 2.0 05/15/17 18:33 86 20 79 Room Air 05/15/17 16:00 Nasal Cannula 2.0 05/15/17 15:29 36.7 54 16 97/45 (62) 97 Nasal Cannula 2.0 05/15/17 14:10 62 20 98 Nasal Cannula 2.0 05/15/17 12:00 Nasal Cannula 2.0 05/15/17 11:44 36.8 60 18 97/45 (62) 94 Nasal Cannula 2.0 05/15/17 08:30 Nasal Cannula 2.0 05/15/17 07:56 36.6 51 14 101/53 (69) 92 Nasal Cannula 4.0 Physical Exam General Appearance: WD/WN, + mild distress Eyes: PERRL, EOMI Neck: supple, no JVD Respiratory/Chest: + decreased breath sounds, + accessory muscle use, + rhonchi Cardiovascular: regular rate, rhythm, + systolic murmur Abdomen: normal bowel sounds, non tender, soft Extremities: no pedal edema, no calf tenderness Neurologic/Psychiatric: alert, oriented x 3 Laboratory Results Last 24 Hours Test 05/16/17 05:20 White Blood Count 7.41 K/uL Red Blood Count 3.72 M/uL Hemoglobin 13.5 g/dL Hematocrit 40.1 % Mean Corpuscular Volume 107.8 fL Mean Corpuscular Hemoglobin 36.3 pg Mean Corpuscular Hemoglobin Concent 33.7 g/dl Platelet Count 246 K/uL Mean Platelet Volume 10.4 fL RDW Standard Deviation 85.9 fL RDW Coefficient of Variation 21.8 % Neutrophils % (Manual) 93.9 % Lymphocytes % (Manual) 2.6 % Monocytes % (Manual) 0.9 % Myelocytes % 2.6 % Neutrophils # (Manual) 6.96 K/uL Total Absolute Neutrophils 6.96 K/uL Lymphocytes # (Manual) 0.19 K/uL Total Absolute Lymphocytes 0.19 K/uL Monocytes # (Manual) 0.07 K/uL Myelocytes # 0.19 K/uL Polychromasia 1+ Basophilic Stippling 1+ Anisocytosis PRESENT Prothrombin Time 18.5 SECONDS Prothromb Time International Ratio 1.7 Activated Partial Thromboplast Time 38.4 SECONDS Partial Thromboplastin Ratio 1.5 Sodium Level 141 mmol/L Potassium Level 4.8 mmol/L Chloride Level 100 mmol/L Carbon Dioxide Level 36 mmol/L Anion Gap 5.0 mmol/L Blood Urea Nitrogen 21 mg/dl Creatinine 0.99 mg/dl Est Creatinine Clear Calc Drug Dose 54.2 ml/min Estimated GFR () 86.6 Estimated GFR (Non- 74.7 BUN/Creatinine Ratio 20.9 Random Glucose 115 mg/dl Calcium Level 8.2 mg/dl Magnesium Level 2.6 mg/dl Assessment and Plan 76 M with current tobacco use presents with Acute hypoxic respiratory failure and bronchitis Acute respiratory failure with hypoxia and hypercapnia secondary to acute bronchitis-- ceftriaxone 1 g IV daily, levofloxacin 500 mg IV, guaifenesin extended release 600 mg by mouth twice a day, Xopenex/Atrovent nebulizer every 6 hours while awake and every 2 hours when necessary. Since his adverse reaction to steroids was Heart failure, he had agreed to cautious use of steroids and has had minor improvement. Cardiomyopathy/hypertension/Chronc systolic HF, PAF--carvedilol 25 mg, lisinopril 10 mg and furosemide 20 mg by mouth every morning. Warfarin will be held as inr high, now low and restarted at lower dose Hyperlipidemia-atorvastatin 10 mg
[2017-05-16] MEDS: WARFARIN SOD 4 MG TAB PO SCH (17:15)
[2017-05-16] MEDS: ATORVASTATIN 10 MG TAB PO SCH (21:21)
[2017-05-16] MEDS: LEVOFLOXACIN / D5W 750 MG in PREMIXED IN D5W 150 ML IV SCH (21:36)
[2017-05-16] MEDS: CEFTRIAXONE SOD INJ 1 GM in DEXTROSE 5% ADD-VANTAGE 50ML 50 ML IV SCH (21:36)
[2017-05-17] MEDS: IPRATROPIUM BROMIDE NEB SOLN 0.02% 2.5 ML VIAL INH SCH ×4 (01:53→19:55)
[2017-05-17] MEDS: LEVALBUTEROL 1.25MG/0.5ML NEB INH SCH ×4 (01:53→19:55)
[2017-05-17] MEDS: METHYLPREDNISOLONE IV 40 MG in SYRINGE 0 ML IV SCH ×2 (05:17→18:56)
[2017-05-17 07:25] VITALS: BP 126/62; PULSE 80; TEMP 36.7; O2SAT 91
[2017-05-17 07:34] LABS: INR 1.5 (0.9-1.1); PARTIAL THROMBOPLASTIN RATIO 1.3
[2017-05-17 07:44] LABS: BUN/CREATININE RATIO 22.6 (10-20); CALCIUM 8.2 mg/dl (8.5-10.1); CREATININE 0.96 mg/dl (0.60-1.40); MAGNESIUM 2.8 mg/dl (1.8-2.4); POTASSIUM 4.4 mmol/L (3.5-5.1)
[2017-05-17 08:03] LABS: COMPLETE YES; HEMATOCRIT 40.5 % (42-52); LYMPH ABS # 0.56 K/uL (1.2-3.4); LYMPHOCYTE % 2.6 %; MEAN CELL VOLUME 107.4 fL (80-100); MEAN CORPUSCULAR HEMOGLOBIN 36.3 pg (25-34); MEAN CORPUSCULAR HGB CONC 33.8 g/dl (32-36); NEUTROPHILS % 96.5 %; PLATELET COUNT 263 K/uL (130-400); RED BLOOD COUNT 3.77 M/uL (4.7-6.1); TARGET CELLS 1+; WHITE BLOOD COUNT 21.35 K/uL (4.8-10.8)
[2017-05-17] MEDS: FUROSEMIDE 20 MG TAB PO SCH (08:38)
[2017-05-17] MEDS: LISINOPRIL 10 MG TAB PO SCH (08:38)
[2017-05-17] MEDS: GUAIFENESIN 600 MG TABCR PO SCH ×2 (08:39→21:20)
[2017-05-17] MEDS: CARVEDILOL 6.25 MG TAB PO SCH ×2 (08:39→21:20)
[2017-05-17 09:01] VITALS: PULSE 68; O2SAT 91
[2017-05-17 14:19] VITALS: PULSE 60; O2SAT 90
[2017-05-17 14:35] VITALS: BP 105/59; PULSE 52; TEMP 36.5; O2SAT 90
[2017-05-17] MEDS: WARFARIN SOD 4 MG TAB PO SCH (16:03)
[2017-05-17] MEDS: LEVOFLOXACIN 750 MG TAB PO SCH (18:27)
--- NOTE | 2017-05-17 19:53 | Hospitalist Progress Note ---
Hospitalist Progress Note Date of Service May 17, 2017. Subjective Pt evaluation today including: conversation w/ patient, conversation w/ family (d/w on phone) Pt seems confused on my exam and by RN report. Seems worse when he is off his O2 which he kept taking off today and had to be reminded to put it back on. His tells me he is frequently noncompliant with doctor's appts. His V[employer]er Sample Maker recently wanted him to have a Nuc Stress and another test ( possibly an ECHO?) to reassess his EF of 30% and he cancelled the appts she thinks because there was talk of a possible ICD. reports confusion has been ongoing for a while now. Review of outpt record shows hypoxia intermittently. No formal dx of COPD in the past but he did smoke for over 30 yrs, quit 18 yrs ago as per . He has never had a colonoscopy as he chose not to. He is slightly anemic and macrocytic. says he quit drinking EtOH 27 yrs ago All Other Systems: Reviewed and Negative Objective Vital Signs Date Time Temp Pulse Resp B/P (MAP) Pulse Ox O2 Delivery O2 Flow Rate FiO2 05/17/17 16:00 Nasal Cannula 2.0 05/17/17 14:35 36.5 52 20 105/59 (74) 90 05/17/17 14:19 60 18 90 Nasal Cannula 2.0 05/17/17 09:01 68 16 91 Nasal Cannula 2.0 05/17/17 08:20 Nasal Cannula 2.0 05/17/17 07:25 36.7 80 18 126/62 (83) 91 05/16/17 23:45 Nasal Cannula 2.0 05/16/17 22:28 36.7 74 20 127/67 (87) 92 Nasal Cannula 2.0 05/16/17 21:15 70 122/59 (80) 05/16/17 20:00 93 Nasal Cannula 2.0 05/16/17 20:00 93 Nasal Cannula 2.0 05/16/17 19:58 61 16 93 Nasal Cannula 2.0 Physical Exam General Appearance: WD/WN, no apparent distress (thin, pleasant but confused, answers questions with answers not appropriate for the questions I asked him at times) Eyes: normal inspection, sclerae normal ENT: hearing grossly normal Neck: trachea midline Respiratory/Chest: no respiratory distress, no accessory muscle use, + decreased breath sounds (throughout, some crackles at bases) Cardiovascular: + irregularly irregular (with reg rate), + pertinent finding (1 + pitting edema legs to knees bilat) Abdomen: normal bowel sounds, non tender, soft Extremities: no calf tenderness Neurologic/Psychiatric: alert, normal mood/affect Skin: normal color, warm/dry, no rash Laboratory Results Last 24 Hours Test 05/17/17 06:41 White Blood Count 21.35 K/uL Red Blood Count 3.77 M/uL Hemoglobin 13.7 g/dL Hematocrit 40.5 % Mean Corpuscular Volume 107.4 fL Mean Corpuscular Hemoglobin 36.3 pg Mean Corpuscular Hemoglobin Concent 33.8 g/dl Platelet Count 263 K/uL Mean Platelet Volume 11.0 fL RDW Standard Deviation 86.9 fL RDW Coefficient of Variation 21.8 % Nucleated RBC Absolute Count (auto) 0.06 K/uL Neutrophils % (Manual) 96.5 % Lymphocytes % (Manual) 2.6 % Monocytes % (Manual) 0.9 % Nucleated Red Blood Cells % 0.3 % Neutrophils # (Manual) 20.60 K/uL Total Absolute Neutrophils 20.60 K/uL Lymphocytes # (Manual) 0.56 K/uL Total Absolute Lymphocytes 0.56 K/uL Monocytes # (Manual) 0.19 K/uL Hypogranular Neutrophils 1+ Target Cells 1+ Prothrombin Time 16.0 SECONDS Prothromb Time International Ratio 1.5 Activated Partial Thromboplast Time 34.3 SECONDS Partial Thromboplastin Ratio 1.3 Sodium Level 142 mmol/L Potassium Level 4.4 mmol/L Chloride Level 102 mmol/L Carbon Dioxide Level 36 mmol/L Anion Gap 4.0 mmol/L Blood Urea Nitrogen 22 mg/dl Creatinine 0.96 mg/dl Est Creatinine Clear Calc Drug Dose 55.7 ml/min Estimated GFR () 89.9 Estimated GFR (Non- 77.6 BUN/Creatinine Ratio 22.6 Random Glucose 101 mg/dl Calcium Level 8.2 mg/dl Magnesium Level 2.8 mg/dl Assessment and Plan 76 M with a h/o previous 30 pack year smoking history, Atrial fibrillation, chronic systolic CHF (with reports of 30% LVEF as per ), HTN, LAURYN, dyslipidemia, here with Acute hypoxic respiratory failure and acute bronchitis. Acute respiratory failure with hypoxia and hypercapnia secondary to acute bronchitis-- Suspect undiagnosed COPD as well given hypercapnia, hypoxemia, compensatory metabolic alkalosis, and smoking history. SOme hypoxia might also be from acute on chronic systolic CHF. CXR without PNA. Improving but still requiring O2. Is fairly asymptomatic except for increased confusion when not on O2. Even with POx 79%, he is not SOB. 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 As per , most recent EF 30% and was to have Nuc Stress and probable repeat ECHO and cancelled appts, is being considered for ICD Rates controlled -continue carvedilol, lisinopril 10 mg -increase lasix to 40mg qAM for LE edema and hypoxia -continue coumadin and follow INR (high on admission and warfarin held, now subtherapeutic) -does not tolerate ASA due to bruising as per reports Hyperlipidemia-atorvastatin 10 mg [id number] h/o EtOH-ism. MCV very elevated at 108, also with elevated RDW -check B12, folate,Fe studies, TSH -if those all normal, will need Hematology referral to pursue bone marrow/ myeloproliferative disorder Proph-coumadin Dispo- FULL CODE
[2017-05-17 19:55] VITALS: PULSE 64; O2SAT 95
[2017-05-17 21:17] VITALS: BP 120/60; PULSE 63
[2017-05-17] MEDS: ATORVASTATIN 10 MG TAB PO SCH (21:20)
[2017-05-18 00:12] VITALS: BP 127/73; PULSE 54; TEMP 36.9; O2SAT 93
[2017-05-18] MEDS: IPRATROPIUM BROMIDE NEB SOLN 0.02% 2.5 ML VIAL INH SCH (02:01)
[2017-05-18] MEDS: LEVALBUTEROL 1.25MG/0.5ML NEB INH SCH (02:01)
[2017-05-18] MEDS: METHYLPREDNISOLONE IV 40 MG in SYRINGE 0 ML IV SCH (06:10)
[2017-05-18 06:29] LABS: HEMATOCRIT 42.1 % (42-52); MEAN CELL VOLUME 107.4 fL (80-100); MEAN CORPUSCULAR HEMOGLOBIN 36.5 pg (25-34); MEAN PLATELET VOLUME 10.3 fL (7.4-10.4); PLATELET COUNT 242 K/uL (130-400); RED BLOOD COUNT 3.92 M/uL (4.7-6.1); WHITE BLOOD COUNT 21.66 K/uL (4.8-10.8)
[2017-05-18 07:01] LABS: BUN/CREATININE RATIO 23.5 (10-20); CALCIUM 8.2 mg/dl (8.5-10.1); CREATININE 1.1 mg/dl (0.60-1.40); POTASSIUM 4.9 mmol/L (3.5-5.1)
[2017-05-18 07:11] LABS: ANISOCYTOSIS PRESENT; COMPLETE YES; LYMPH ABS # 0.19 K/uL (1.2-3.4); LYMPHOCYTE % 0.9 %; MYELOCYTE % 1.7 %; NEUTROPHILS % 94.8 %
[2017-05-18 07:12] LABS: FERRITIN 135.3 ng/ml (8.0-388.0); THYROID STIMULATING HORMONE 2.16 uIu/ml (0.300-4.500)
[2017-05-18 07:22] VITALS: BP 125/60; PULSE 42; PULSE 62; TEMP 36.7; O2SAT 91; O2SAT 92
--- NOTE | 2017-05-18 07:43 | DIAGNOSTIC IMAGING REPORT ---
CHEST 2 VIEWS ROUTINE CLINICAL HISTORY: hypoxia dyspnea COMPARISON STUDY: 05/14/2017 FINDINGS: The bones soft tissues and hemidiaphragms are normal. The cardiomediastinal silhouette is normal. The lungs are clear. The pulmonary vasculature is normal. Slight thickening of the major fissures on the lateral projection IMPRESSION: No acute process. Lungs remain generally clear. Electronically signed by: Duy Romero M.D. 05/18/2017 7:41 AM Dictated Date/Time: 05/18/2017 7:40 AM
[2017-05-18 08:02] LABS: INR 1.7 (0.9-1.1); PROTHROMBIN TIME (PATIENT) 18.7 SECONDS (9.0-12.0)
[2017-05-18] MEDS: LISINOPRIL 10 MG TAB PO SCH (08:03)
[2017-05-18] MEDS: GUAIFENESIN 600 MG TABCR PO SCH ×2 (08:03→20:39)
[2017-05-18] MEDS: FUROSEMIDE 40 MG TAB PO SCH (08:03)
[2017-05-18] MEDS: LEValbuterol HFA 15GM INHALER INH SCH ×3 (08:03→20:37)
[2017-05-18 08:04] VITALS: PULSE 44
[2017-05-18] MEDS: CARVEDILOL 6.25 MG TAB PO SCH ×2 (08:04→20:42)
[2017-05-18] MEDS: IPRATROPIUM BROMIDE HFA INHALER INH SCH ×3 (12:27→20:37)
[2017-05-18 15:07] VITALS: BP 110/61; PULSE 65; TEMP 36.4; O2SAT 91
[2017-05-18] MEDS: WARFARIN SOD 4 MG TAB PO SCH (16:11)
--- NOTE | 2017-05-18 17:25 | Hospitalist Progress Note ---
Hospitalist Progress Note Date of Service May 18, 2017. Subjective Pt evaluation today including: conversation w/ patient, physical exam Pt feels well, legs less swollen today, feels fine with O2 in place All Other Systems: Reviewed and Negative Objective Vital Signs Date Time Temp Pulse Resp B/P (MAP) Pulse Ox O2 Delivery O2 Flow Rate FiO2 05/18/17 15:07 36.4 65 18 110/61 (77) 91 Nasal Cannula 2.0 05/18/17 08:13 Nasal Cannula 2.0 05/18/17 08:04 44 05/18/17 07:22 36.7 62 18 125/60 (81) 91 Nasal Cannula 2.0 05/18/17 07:22 62 16 92 Nasal Cannula 2.0 05/18/17 00:12 36.9 54 20 127/73 (91) 93 Nasal Cannula 2.0 05/18/17 00:00 Nasal Cannula 2.0 05/17/17 21:17 63 120/60 (80) 05/17/17 19:55 64 14 95 Nasal Cannula 2.0 Physical Exam General Appearance: WD/WN, no apparent distress Eyes: normal inspection, sclerae normal ENT: pharynx normal, + pertinent finding (missing dentition) Neck: trachea midline Respiratory/Chest: no respiratory distress, no accessory muscle use, + decreased breath sounds (throughout) Cardiovascular: regular rate, rhythm, no murmur, + pertinent finding (trace pitting edema legs bilat) Abdomen: normal bowel sounds, non tender, soft, no organomegaly Extremities: no calf tenderness Neurologic/Psychiatric: alert, normal mood/affect Skin: normal color, warm/dry, no rash Laboratory Results Last 24 Hours Test 05/18/17 06:21 05/18/17 07:47 White Blood Count 21.66 K/uL Red Blood Count 3.92 M/uL Hemoglobin 14.3 g/dL Hematocrit 42.1 % Mean Corpuscular Volume 107.4 fL Mean Corpuscular Hemoglobin 36.5 pg Mean Corpuscular Hemoglobin Concent 34.0 g/dl Platelet Count 242 K/uL Mean Platelet Volume 10.3 fL RDW Standard Deviation 87.2 fL RDW Coefficient of Variation 21.9 % Neutrophils % (Manual) 94.8 % Lymphocytes % (Manual) 0.9 % Monocytes % (Manual) 2.6 % Myelocytes % 1.7 % Neutrophils # (Manual) 20.53 K/uL Total Absolute Neutrophils 20.53 K/uL Lymphocytes # (Manual) 0.19 K/uL Total Absolute Lymphocytes 0.19 K/uL Monocytes # (Manual) 0.56 K/uL Myelocytes # 0.37 K/uL Anisocytosis PRESENT Sodium Level 142 mmol/L Potassium Level 4.9 mmol/L Chloride Level 102 mmol/L Carbon Dioxide Level 37 mmol/L Anion Gap 3.0 mmol/L Blood Urea Nitrogen 26 mg/dl Creatinine 1.10 mg/dl Est Creatinine Clear Calc Drug Dose 48.6 ml/min Estimated GFR () 76.2 Estimated GFR (Non- 65.8 BUN/Creatinine Ratio 23.5 Random Glucose 107 mg/dl Calcium Level 8.2 mg/dl Magnesium Level 3.0 mg/dl Iron Level 150 mcg/dl Total Iron Binding Capacity 224 mcg/dl Transferrin 176 mg/dl Transferrin % Saturation 61 % Ferritin 135.3 ng/ml Vitamin B12 Level 1000 pg/mL Folate 16.11 ng/mL Thyroid Stimulating Hormone (TSH) 2.160 uIu/ml Prothrombin Time 18.7 SECONDS Prothromb Time International Ratio 1.7 Assessment and Plan 76 M with a h/o previous 30 pack year smoking history, Atrial fibrillation, chronic systolic CHF (with reports of 30% LVEF as per ), HTN, LAURYN, dyslipidemia, here with Acute hypoxic respiratory failure and acute bronchitis. Acute respiratory failure with hypoxia and hypercapnia secondary to acute bronchitis-- Suspect undiagnosed COPD as well given hypercapnia, hypoxemia, compensatory metabolic alkalosis, and smoking history. Some hypoxia might also be from acute on chronic systolic CHF. CXR without PNA. Improving but still requiring O2. Is fairly asymptomatic except for increased confusion when not on O2. Even with POx 79%, he is not SOB. Improved today after increasing dose of lasix. 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 As per , most recent EF 30% and was to have Nuc Stress and probable repeat ECHO and cancelled appts, is being considered for ICD Rates controlled, INR low at 1.7 -continue carvedilol, lisinopril 10 mg -increased lasix to 40mg qAM for LE edema and hypoxia -continue coumadin and follow INR (high on admission and warfarin held, now subtherapeutic) -does not tolerate ASA due to bruising as per reports Hyperlipidemia-atorvastatin 10 mg Anemia-Hgb only mildly reduced at 13-14, significant macrocytic-no h/o EtOH- ism. MCV very elevated at 108, also with elevated RDW. B12, folate both normal.Fe studies with elevated transferrin sat, TSH normal. COuld be hereditary spherocytosis? But does have elevated RDW - will need Hematology referral to pursue bone marrow/myeloproliferative disorder as an outpatient Proph-coumadin continue yamel dose and should be therapeutic by tomorrow Dispo- FULL CODE dc to home tomorrow
[2017-05-18] MEDS: LEVOFLOXACIN 750 MG TAB PO SCH (18:15)
[2017-05-18] MEDS: ATORVASTATIN 10 MG TAB PO SCH (20:39)
[2017-05-18 20:41] VITALS: PULSE 55
[2017-05-19 00:22] VITALS: BP 114/59; PULSE 100; TEMP 36.7; O2SAT 92
[2017-05-19] MEDS: IPRATROPIUM BROMIDE HFA INHALER INH SCH ×2 (02:52→07:33)
[2017-05-19] MEDS: LEValbuterol HFA 15GM INHALER INH SCH ×2 (02:53→07:33)
[2017-05-19] MEDS ORDERED: METHYLPREDNISOLONE IV 40 MG in SYRINGE 0 ML IV SCH (06:00)
[2017-05-19 07:14] LABS: MEAN CELL VOLUME 108.7 fL (80-100); MEAN CORPUSCULAR HEMOGLOBIN 35.9 pg (25-34); PLATELET COUNT 222 K/uL (130-400); RED BLOOD COUNT 3.68 M/uL (4.7-6.1)
[2017-05-19 07:20] VITALS: BP 142/71; PULSE 54; TEMP 36.4; O2SAT 93
[2017-05-19] MEDS: GUAIFENESIN 600 MG TABCR PO SCH (07:32)
[2017-05-19] MEDS: FUROSEMIDE 40 MG TAB PO SCH (07:32)
[2017-05-19] MEDS: LISINOPRIL 10 MG TAB PO SCH (07:33)
[2017-05-19] MEDS: CARVEDILOL 6.25 MG TAB PO SCH (07:34)
[2017-05-19 07:38] LABS: INR 1.7 (0.9-1.1); PROTHROMBIN TIME (PATIENT) 18.2 SECONDS (9.0-12.0)
[2017-05-19 07:53] LABS: BUN/CREATININE RATIO 31.4 (10-20); CALCIUM 8.1 mg/dl (8.5-10.1); CREATININE 0.93 mg/dl (0.60-1.40); MAGNESIUM 2.9 mg/dl (1.8-2.4); POTASSIUM 4.7 mmol/L (3.5-5.1)
[2017-05-19 08:14] LABS: HOWELL-JOLLY BODIES OCCASIONAL
[2017-05-19 08:16] LABS: ANISOCYTOSIS PRESENT; COMPLETE YES; HYPOCHROMIA PRESENT; LYMPH ABS # 0.16 K/uL (1.2-3.4); LYMPHOCYTE % 0.9 %; META ABS # 0.16 K/uL (0-0); METAMYELOCYTE % 0.9 %; MYELOCYTE % 0.9 %; NEUTROPHILS % 93.8 %; TARGET CELLS 1+
[2017-05-19] MEDS ORDERED: NURSING VERBAL MED ORDER ONE (09:15)
[2017-05-19] MEDS ORDERED: CARVEDILOL 3.125 MG TAB PO ONE (09:22)
[2017-05-19] MEDS ORDERED: CRG3125 PO (10:02)
[2017-05-19] MEDS ORDERED: GFNSR600 PO (10:02)
[2017-05-19] MEDS ORDERED: LSX40 PO (10:02)
[2017-05-19] MEDS ORDERED: LVQ750 PO (10:02)
[2017-05-19] MEDS ORDERED: WARF5TAB7 PO (10:02)
[2017-05-19] MEDS ORDERED: PRVHFAIN INH (10:02)
--- NOTE | 2017-05-19 10:11 | Discharge Instructions ---
Discharge Instructions Date of Service May 19, 2017. Admission Reason for Admission: Acute Respiratory Failure, Acute bronchitis Discharge Discharge Diagnosis / Problem: Acute Respiratory Failure, Acute bronchitis Discharge Goals Goal(s): Improve disease control, Diagnostic testing, Therapeutic intervention Activity Recommendations Activity Limitations: resume your previous activity Lifting Limitations: none Exercise/Sports Limitations: gradually increase as tolerated Shower/Bathe: no limitations . Instructions / Follow-Up Instructions / Follow-Up You were admitted with acute bronchitis and found to have very low oxygen levels. You were given antibiotics and steroids through your IV. You were also prescribed oxygen. It is very important that you wear your oxygen at all times until you are advised to stop by a doctor. Because of your history of smoking and exposure to coal dust, you may have chronic lung disease. You will need to have Pulmonary Function Testing to determine this in conjunction with a referral to a Support Architect. You should follow up with your PCP within 1 week and with your Gluing Machine Offbearer for testing of your heart as previously ordered. We are also arranging for you to be seen by a lung specialist called a Support Architect. You also were found to have enlargement of the size of your red blood cells. Other tests were run to figure out the cause of this and they were normal (B12, folate levels, thyroid function). You should seek out a referral as an outpatient to a Blood Specialist (Army Manager) through your PCP as well on a non-emergent basis. You should have your coumadin level (INR) checked tomorrow. It was 1.7 today on the day of discharge. Some of your heart medicine doses were adjusted as well. Please follow the medication list from the hospital paperwork exactly as written and store away other bottles of medications so you do not get confused. Current Hospital Diet Patient's current hospital diet: AHA Diet (Heart Healthy) Discharge Diet Recommended Diet: AHA Diet (Heart Healthy) Procedures Procedures Performed: Chest xrays Pending Studies Studies pending at discharge: no Laboratory Results Last 24 Hours Test 05/19/17 06:43 White Blood Count 18.10 K/uL Red Blood Count 3.68 M/uL Hemoglobin 13.2 g/dL Hematocrit 40.0 % Mean Corpuscular Volume 108.7 fL Mean Corpuscular Hemoglobin 35.9 pg Mean Corpuscular Hemoglobin Concent 33.0 g/dl Platelet Count 222 K/uL Mean Platelet Volume 10.0 fL RDW Standard Deviation 88.5 fL RDW Coefficient of Variation 22.2 % Neutrophils % (Manual) 93.8 % Band Neutrophils % (Manual) 0.0 % Lymphocytes % (Manual) 0.9 % Variant Lymphocytes % (manual) 0.0 % Monocytes % (Manual) 3.5 % Metamyelocytes % 0.9 % Myelocytes % 0.9 % Neutrophils # (Manual) 16.98 K/uL Total Absolute Neutrophils 16.98 K/uL Lymphocytes # (Manual) 0.16 K/uL Total Absolute Lymphocytes 0.16 K/uL Monocytes # (Manual) 0.63 K/uL Metamyelocytes # 0.16 K/uL Myelocytes # 0.16 K/uL Percent Large Granular Lymphocytes 0.0 % Hypochromasia PRESENT Basophilic Stippling 1+ Anisocytosis PRESENT Macrocytosis PRESENT Target Cells 1+ Meza-Kapolei Bodies OCCASIONAL Prothrombin Time 18.2 SECONDS Prothromb Time International Ratio 1.7 Sodium Level 142 mmol/L Potassium Level 4.7 mmol/L Chloride Level 101 mmol/L Carbon Dioxide Level 40 mmol/L Anion Gap 1.0 mmol/L Blood Urea Nitrogen 29 mg/dl Creatinine 0.93 mg/dl Est Creatinine Clear Calc Drug Dose 57.5 ml/min Estimated GFR () 93.4 Estimated GFR (Non- 80.6 BUN/Creatinine Ratio 31.4 Random Glucose 83 mg/dl Calcium Level 8.1 mg/dl Magnesium Level 2.9 mg/dl Total Bilirubin 1.1 mg/dl Direct Bilirubin 0.3 mg/dl Aspartate Amino Transf (AST/SGOT) 25 U/L Alanine Aminotransferase (ALT/SGPT) 36 U/L Alkaline Phosphatase 56 U/L Total Protein 5.5 gm/dl Albumin 2.6 gm/dl Medical Emergencies . Who to Call and When: Medical Emergencies: If at any time you feel your situation is an emergency, please call 911 immediately. . Non-Emergent Contact Non-Emergency issues call your: Primary Care Provider Call Non-Emergent contact if: you have a fever, you have any medication questions you are having worsening shortness of breath, worsening cough, or diarrhea, skin rash, or for any other concerns you may have. . . "Provider Documentation" section prepared by Niecy Miller. . VTE Core Measure Inpt VTE Proph given/why not?: Warfarin (Coumadin)
[2017-05-19] MEDS ORDERED: METH4PAK PO (10:39)
[2017-05-19 11:08] VITALS: BP 137/70; PULSE 72; TEMP 36.5; O2SAT 92
[2017-05-19] MEDS ORDERED: WARFARIN SOD 5 MG TAB PO SCH (16:00)
[2017-05-19] MEDS ORDERED: CARVEDILOL 3.125 MG TAB PO SCH (21:00)
--- NOTE | 2017-05-20 07:08 | Discharge Summary ---
Discharge Summary Date of Service May 19, 2017. 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 Macrocytic Anemia Procedures: Chest xrays Consultations: None Medication Reconciliation New Medications: Albuterol (Ventolin Hfa) 60 Puffs/5400 Mcg Aers 2 PUFF INH Q4 for SOB/Wheezing, #1 INHALER Carvedilol (Carvedilol) 3.125 Mg Tab 3.125 MG PO BID for 30 Days, #60 TAB Furosemide (Furosemide) 40 Mg Tab 40 MG PO QAM for 30 Days, #30 TAB Guaifenesin Ext Rel (Mucinex Ext Rel) 600 Mg Tabcr 600 MG PO Q12 for 7 Days, #14 TAB OTC Levofloxacin (Levofloxacin) 750 Mg Tab 750 MG PO DAILY@1800 for 2 Days, #2 TAB Changed Medications: Warfarin Sod (Jantoven) 5 Mg Tab 5 MG PO DIRECTED for 30 Days, TAB (Changed from: TAKE 5 MG EVERYDAY EXCEPT WEDNESDAY AND WEDNESDAY) and to be adjusted by your PCP based on INR result Continued Medications: Atorvastatin (Lipitor) 10 Mg Tab 10 MG PO QPM, TAB Lisinopril (Lisinopril) 10 Mg Tab 10 MG PO QAM Discontinued Medications: Carvedilol (Coreg) 6.25 Mg Tab 6.25 MG PO BID, TAB Furosemide (Furosemide) 20 Mg Tab 20 MG PO QAM for 7 Days, #7 TAB Warfarin Sod (Jantoven) 5 Mg Tab 7.5 MG PO WEDNESDAY AND WEDNESDAY, TAB Discharge Exam Review of Systems: Constitutional: No fever Eyes: No problem reported ENT: No problem reported Respiratory: No shortness of breath Cardiovascular: No chest pain Abdomen: No pain, No nausea, No vomiting Musculoskeletal: No problem reported Genitourinary - Male: No problem reported Psychiatric: No problem reported Endocrine: No problem reported Hematologic / Lymphatic: No problem reported Integumentary: No problem reported Physical Exam: General Appearance: WD/WN, no apparent distress Eyes: normal inspection, sclerae normal ENT: hearing grossly normal, pharynx normal Neck: trachea midline Respiratory/Chest: no respiratory distress, no accessory muscle use, + decreased breath sounds (slightly diminished throughout, some exp wheezes at bases bilaterally) Cardiovascular: no murmur, + bradycardia, + irregularly irregular, + pertinent finding (trace pitting edema R>L leg) Abdomen / GI: normal bowel sounds, non tender, soft, no organomegaly Extremities: no calf tenderness, normal range of motion Neurologic/Psychiatric: alert, normal mood/affect, oriented x 3 Skin: normal color, warm/dry, no rash Hospital Course 76 M with a h/o previous 30 pack year smoking history, Atrial fibrillation, chronic systolic CHF (with reports of 30% LVEF as per ), HTN, LAURYN, dyslipidemia, here with Acute hypoxic respiratory failure and acute bronchitis. Acute respiratory failure with hypoxia and hypercapnia secondary to acute bronchitis-- Suspect undiagnosed COPD as well given hypercapnia, hypoxemia, compensatory metabolic alkalosis, and smoking history. Some hypoxia might also be from acute on chronic systolic CHF. CXR without PNA. Improving but still requiring O2 and will for home as well. Is fairly asymptomatic except for increased confusion when not on O2. Even with POx 79%, he is not SOB. Improved after increasing dose of lasix. 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 As per , most recent EF 30% and was to have Nuc Stress and probable repeat ECHO and cancelled appts, is being considered for ICD Rates controlled, INR low at 1.7 on day of discharge -continue carvedilol but lowered whipple to 3.125mg bid due to ongoing bradycardia ( asymptomatic), lisinopril 10 mg -increased lasix to 40mg qAM for LE edema and hypoxia -continue coumadin and and follow INR (high on admission and warfarin held, now subtherapeutic) -does not tolerate ASA due to bruising as per reports Hyperlipidemia-atorvastatin 10 mg Anemia-Hgb only mildly reduced at 13-14, significant macrocytic-no h/o EtOH- ism. MCV very elevated at 108, also with elevated RDW. B12, folate both normal.Fe studies with elevated transferrin sat, TSH normal. COuld be hereditary spherocytosis? But does have elevated RDW - will need Hematology referral to pursue bone marrow/myeloproliferative disorder as an outpatient Proph-coumadin continue same dose and should be therapeutic by tomorrow Dispo- FULL CODE dc to home Total Time Spent: Greater than 30 minutes This includes examination of the patient, discharge planning, medication reconciliation, and communication with other providers. Discharge Instructions Please refer to the electronic Patient Visit Report (Discharge Instructions) for additional information. Follow-Up PCP within 1 week Pulmonology within 2 weeks Cardiology within 1 month Hematology within 1 month Check PT/INR in 1 day Additional Copies To Kanika Daniels MD
== END 2017-05-19 14:32 | disposition home health service (06) | DRG 189 ==
LOC: C.EDB 16:45 → C.2E 20:05 → ENRESERV 20:13 → C.MED 05-16 14:41
PROVIDERS: ADMIT Hospitalist; ATTEND Family Medicine
DX: J96.01 Acute respiratory failure with hypoxia (principal); I50.23 Acute on chronic systolic (congestive) heart failure; I42.9 Cardiomyopathy, unspecified; I11.0 Hypertensive heart disease with heart failure; J96.02 Acute respiratory failure with hypercapnia; J20.9 Acute bronchitis, unspecified; E78.5 Hyperlipidemia, unspecified; E16.2 Hypoglycemia, unspecified; I48.0 Paroxysmal atrial fibrillation; D64.9 Anemia, unspecified; Z79.01 Long term (current) use of anticoagulants; Z79.899 Other long term (current) drug therapy; Z88.8 Allergy status to other drugs, medicaments and biological substances; Z87.891 Personal history of nicotine dependence

== ENCOUNTER → 2018-02-07 | Outpatient (CLI) | payer OTHER ==
[~2018-02-07] MED LIST changes: -CARV6.252 PO; +CRG3125 PO; +GFNSR600 PO; +LISI-461 PO; -LISI2.5T5 PO; -LSX20 PO; +LSX40 PO; +LVQ750 PO; +PRVHFAIN INH
[2018-02-07 12:33] LABS: ALBUMIN 3.5 gm/dl (3.4-5.0); ALT/SGPT 31 U/L (12-78); BLOOD UREA NITROGEN 21 mg/dl (7-18); CALCIUM 8.7 mg/dl (8.5-10.1); CARBON DIOXIDE 33 mmol/L (21-32); CHOLESTEROL 129 mg/dl (0-200); GLUCOSE 96 mg/dl (70-99); POTASSIUM 4.8 mmol/L (3.5-5.1); SODIUM 141 mmol/L (136-145)
[2018-02-07 12:36] LABS: ALKALINE PHOSPHATASE 82 U/L (45-117); AST/SGOT 26 U/L (15-37); LDL CHOLESTEROL CALCULATED 56 mg/dl; TOTAL PROTEIN 6.4 gm/dl (6.4-8.2)
== END | disposition home or self-care (01) ==
LOC: C.LABPBG 09:13
PROVIDERS: ATTEND Family Medicine
DX: I10 Essential (primary) hypertension (principal); I48.91 Unspecified atrial fibrillation

== ENCOUNTER 2019-12-15 20:00 | Observation (INO) ==
[2019-12-15 21:19] LABS: Basophils # (auto) 0.01 K/uL (0-0.2); Basophils % (auto) 0.1 %; Eosinophils # (auto) 0.09 K/uL (0-0.5); Eosinophils % (auto) 1.1 %; Hematocrit (blood only) 39.6 % (42-52); Hemoglobin 13.4 g/dL (14.0-18.0); Immature Granulocytes # (auto) 0.07 K/uL (0.00-0.02); Immature Granulocytes % (auto) 0.8 %; Lymphocytes # (auto) 0.62 K/uL (1.2-3.4); Lymphocytes % (auto) 7.5 %; Mean Corpuscular Hemoglobin 36.4 pg (25-34); Mean Corpuscular Hgb Conc 33.8 g/dL (32-36); Mean Corpuscular Volume 107.6 fL (80-100); Monocytes # (auto) 0.66 K/uL (0.11-0.59); Neutrophils # (auto) 6.81 K/uL (1.4-6.5); Neutrophils % (auto) 82.5 %; Nucleated RBC # (auto) 0.04 K/uL (0-0); Nucleated RBC % (auto) 0.4 %; Platelet Count 223 K/uL (130-400); RDW Coefficient of Variation 22.6 % (11.5-14.5); RDW Standard Deviation 90.7 fL (36.4-46.3); Red Blood Count 3.68 M/uL (4.7-6.1); White Blood Count 8.26 K/uL (4.8-10.8)
[2019-12-15] MEDS: MAGNESIUM SULFATE / D5W 1 GM/100 ML BAG IV SCH ×2 (21:19→21:20)
[2019-12-15 21:32] LABS: INR 1.4 (0.9-1.1); Partial Thromboplastin Ratio 1.1; Prothrombin Time 14.2 Seconds (9.0-12.0)
[2019-12-15 21:38] LABS: Albumin Level 3.4 gm/dl (3.4-5.0); BUN Creatinine Ratio 19.7 (10-20); Calcium 8.9 mg/dl (8.5-10.1); Creatinine Clr Calc Pharmacy 53.5 ml/min; Est GFR (African American) 91.5; Est GFR (Non-African American) 78.9; Potassium 4.6 mmol/L (3.5-5.1)
--- NOTE | 2019-12-15 21:40 | XRay Report ---
XR chest 1V portable CLINICAL HISTORY: 79 years-old Male presenting with weakness. TECHNIQUE: Portable upright AP view of the chest was obtained. COMPARISON: 06/03/2019. FINDINGS: Atherosclerosis of the aortic arch. Cardiac silhouette enlarged. Heterogeneous radiolucency of the millie ngs. Lungs are hyperinflated. No focal opacity. No pleural effusion or pneumothorax. Osteopenia may b e present. IMPRESSION: 1. Findings suggest emphysema. No focal infiltrate to suggest pneumonia. ACT 112: Negative or not required by law. Electronically signed by: Killian Julian M.D. 12/15/2019 9:39 PM
[2019-12-15 21:48] LABS: Albumin Globulin Ratio 1.1 (0.9-2); Bilirubin,Total 1.4 mg/dl (0.2-1); Globulin 3.2 gm/dl (2.5-4.0); Thyroid Stimulating Hormone 3.81 uIu/ml (0.300-4.500); Total Protein 6.6 gm/dl (6.4-8.2); Troponin I 0.032 ng/ml (0-0.045)
[2019-12-15 21:56] LABS: Anisocytosis Present; Basophilic Stippling Occasional; Hypogranular Neutrophils 1+; Target Cells 1+
[2019-12-15] MEDS ORDERED: IOVERSOL 100ml IV PRN (22:08)
--- NOTE | 2019-12-15 22:27 | CT Scan Report ---
CT cervical spine wo con CLINICAL HISTORY: 79 years-old Male presenting with Pt c/o b/l shoulder pain. TECHNIQUE: Multidetector CT of the cervical spine was performed without the use of intravenous contra st. IV contrast: None. One or more dose lowering techniques were used consistent with the principles of ALARA (as low as reasonably achievable), including automatic exposure control, mA or kV adjustment to individual patient size, and/or use of iterative reconstruction. COMPARISON: None. CT DOSE (mGy.cm): The estimated cumulative dose is 851.94. FINDINGS: Basket Weaver topogram: Unremarkable. Normal cervical lordosis. Vertebral bodies maintain normal height and alignment. Moderate to severe i ntervertebral disc height loss at nearly every cervical level. Disc osteophyte complexes at every lev el with mild to moderate posterior bony spurring greatest at C3-4, C5-6, and C6-7. Results in osseous spinal canal narrowing. Violation of the soft tissues of the spinal canal does not demonstrate furth er effacement. Multilevel osseous neural foraminal narrowing secondary to uncovertebral hypertrophy a nd facet arthropathy. No acute fracture or subluxation. Visualized portion of the skull base intact. Emphysematous changes at the lung apices. Paraspinal soft tissues within normal limits. IMPRESSION: 1. No acute osseous injury of the cervical spine. 2. Multilevel degenerative changes. 3. Emphysema. ACT 112: Negative or not required by law. Electronically signed by: Killian Julian M.D. 12/15/2019 10:26 PM
--- NOTE | 2019-12-15 22:36 | CT Scan Report ---
CT abd pelvis IV con only CLINICAL HISTORY: 79 years-old Male presenting with Pt c/o back pain. TECHNIQUE: Multidetector CT of the abdomen and pelvis was performed after the administration of intra venous contrast. IV contrast: 90 mL of Optiray 320. One or more dose lowering techniques were used co nsistent with the principles of ALARA (as low as reasonably achievable), including automatic exposure control, mA or kV adjustment to individual patient size, and/or use of iterative reconstruction. COMPARISON: Chest x-ray from 05/18/2017. CT DOSE (mGy.cm): The estimated cumulative dose is 851.94. FINDINGS: Marketing Services Coordinator topogram: Unremarkable. Lung bases: Multichamber enlargement of the heart with pronounced right atrial enlargement. Trace rig ht pleural effusion. Emphysema. Minimal bibasilar atelectasis. Liver: Normal morphology. No liver lesion. Hypoattenuation along the fissure for the ligamentum teres likely perfusional variation or focal fat. Patent hepatic vasculature. Biliary: No intrahepatic or extrahepatic biliary ductal dilatation. Gallbladder contains gallstones. Pancreas: Moderate parenchymal atrophy. Spleen: Normal. Adrenal glands: Normal. Kidneys and ureters: Normal. No hydronephrosis. Bladder: Circumferential bladder wall thickening. Pelvic organs: Significantly enlarged prostate with heterogeneous enhancement. Focally abnormal enhan cement in the left anterior prostate. Seminal vesicles normal. Vasectomy clips noted. Bilateral hydro madonna are also present, which are large, right greater than left. Bowel: A portion of the proximal sigmoid colon is contained within the left inguinal hernia. No bowel wall thickening or evidence of resulting obstruction. Trace fluid in the hernia sac. The appendix is normal. Distal ileum contained within the right inguinal hernia, with trace fluid the hernia sac. No bowel obstruction. Peritoneal cavity: Trace fluid in the pelvis and in the bilateral hernia sacs. No free intraperitonea l gas. Lymph nodes: No enlarged lymph nodes in the abdomen or pelvis. Vasculature: Atherosclerosis of the normal caliber abdominal aorta. IVC patent. Abdominal wall: Bilateral inguinal hernias, which are bowel containing as mentioned. Mild body wall e chayo diffusely. Musculoskeletal: Degenerative changes of the spine. Osteopenia. Mild degenerative changes of the hips . Sclerotic osseous lesion in the left parasymphyseal pelvis. Bilateral pars defects of L5. Moderate compression deformity of T12 without retropulsion of the posterior cortex. This is unchanged when com paring to lateral chest x-ray from 05/18/2017. IMPRESSION: 1. Enlarged and heterogeneous prostate. Enhancement pattern of the prostate raises concern for an un derlying lesion. Correlate with PSA and consider urologic consultation for possible prostate MRI. 2. Indeterminate sclerotic lesion in the pelvis raises concern for osseous metastatic disease. Corre late with findings on prostate MRI and consider possible nonurgent nuclear medicine bone scan. 3. Chronic compression deformity of T12 unchanged since at least 2016. 4. Bilateral inguinal hernias containing small bowel and sigmoid colon with trace fluid in the herni a sacs. No bowel obstruction or convincing evidence of strangulation. 5. Cardiomegaly. 6. Emphysema. 7. Additional chronic findings as above. ACT 112: Negative or not required by law. Electronically signed by: Killian Julian M.D. 12/15/2019 10:35 PM
--- NOTE | 2019-12-15 22:43 | CT Scan Report ---
CT thoracic spine wo con CLINICAL HISTORY: 79 years-old Male presenting with Pt c/o low back pain. TECHNIQUE: Multidetector CT of the thoracic spine was performed without the use of intravenous contra st. IV contrast: None. One or more dose lowering techniques were used consistent with the principles of ALARA (as low as reasonably achievable), including automatic exposure control, mA or kV adjustment to individual patient size, and/or use of iterative reconstruction. COMPARISON: Correlation made to chest x-ray from 05/18/2017. CT DOSE (mGy.cm): The estimated cumulative dose is 851.94. 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 Mildly exaggerated thoracic kyphosis. Mild height loss with slight wedging deformity of T6. Minimal h eight loss of T7. Moderate height loss with wedging deformity of T12, which is unchanged since prior lateral chest x-ray. The deformities at T6 and T7 are new since the prior radiograph. No retropulsion of the posterior cortices of these compression fractures. Intervertebral disc heights preserved. Small disc osteophyte complexes noted at several levels. Poste rior spondylitic spurring noted to a mild to moderate degree at T11-12 with results in osseous spinal canal narrowing. No significant osseous neural foraminal narrowing. No acute subluxation. Atheroscle rosis of the thoracic aorta. Coronary artery and aortic valve calcification. Paraspinal musculature w ithin normal limits. Lungs with centrilobular emphysematous changes. IMPRESSION: 1. Mild compression deformity at T6 and minimal compression deformity T7. These fractures are new si nce 2017. Correlate with point tenderness to assess for acuity. 2. Chronic moderate compression fracture at T12 unchanged since at least 2016. 3. No retropulsion of the cortices of the fractured levels. 4. Mild multilevel degenerative changes with osseous spinal canal narrowing at T11-12. 5. Emphysema. ACT 112: Negative or not required by law. Electronically signed by: Killian Julian M.D. 12/15/2019 10:42 PM
--- NOTE | 2019-12-15 22:51 | CT Scan Report ---
CT lumbar spine wo con CLINICAL HISTORY: 79 years-old Male presenting with Pt c/o low back pain. TECHNIQUE: Multidetector CT of the lumbar spine was performed without the use of intravenous contrast . IV contrast: None. One or more dose lowering techniques were used consistent with the principles of ALARA (as low as reasonably achievable), including automatic exposure control, mA or kV adjustment t o individual patient size, and/or use of iterative reconstruction. COMPARISON: None. CT DOSE (mGy.cm): The estimated cumulative dose is 851.94 mGy.cm. FINDINGS: Drawbench Operator topogram: Unremarkable. Minimal lumbar lordosis. Grade 1 anterolisthesis of L5 on S1 suggested. Bilateral pars defects of L5. Vertebral bodies otherwise maintain normal height and alignment allowing for incomplete visualizatio n of the L5-S1 intervertebral disc space. No compression deformity allowing for incomplete visualizat ion of the inferior endplate of L5. No acute appearing subluxation. No acute fracture or acute appear ing subluxation. Osseous neural foraminal narrowing noted at L5-S1 in large part due to atheroscleros is, left greater than right. Disc bulges at L3-4 and L4-5 results in mild spinal canal narrowing. Par aspinal soft tissues within normal limits. Atherosclerosis. IMPRESSION: 1. No acute osseous injury of the lumbar spine. 2. Grade 1 anterolisthesis of L5 on S1 secondary to bilateral pars defects of L5. Resultant left gre ater than right neural foraminal narrowing at this level. 3. Mild spinal canal stenosis secondary to disc bulges at L3-4 and L4-5. ACT 112: Negative or not required by law. Electronically signed by: Killian Julian M.D. 12/15/2019 10:49 PM
[2019-12-15] MEDS ORDERED: LEVALBUTEROL HCL 1.25 MG/3 ML NEB NEB STA (23:19)
[2019-12-15] MEDS ORDERED: FUROSEMIDE 40 MG/4 ML VIAL IV STA (23:20)
--- NOTE | 2019-12-16 00:12 | History & Physical Report ---
Date of Service December 16, 2019 Assessment & Plan (1) Severe chronic obstructive pulmonary disease: Mr. Marcos Domingo is a 79 year old man with a PMH significant for severe cardiomyopathy, Paroxysmal A fib and COPD who presents with back pain and was found to be in A fib with RVR. Atrial Fibrillation with RVR Rates as high as 150's on admission Potassium normal, ordered Mag and Phos Received four grams MgSO4 per ED Started patient on diltiazem drip for time being, consulted cardiology Patient not in acute CHF exacerbation, oxygenating well on home 4L no new changes in breathing Patient sub therapeutic with INR of 1.4 Starting patient on heparin drip and holding warfarin for possible procedure. Back Pain Secondary to new compression fractures in thoracic spine T6 and T7 visualized on CT also has preexisting Fx at T12 C spine and L spine without new pathology Patient with history of frequent falls Possible Prostate Cancer Abdomen pelvis CT showing prostate lesion suspicious for malignancy Sclerotic lesion in pelvis concerning for possible bony metastasis PSA ordered Urology consulted Patient's father from complications of prostate cancer at 74 In this chronically noncompliant patient currently not therapeutic on warfarin, now might be a good time to get a biopsy if it is indicated while he is here as an inpatient Cardiomyopathy Most recent echo from July 2019 showing EF 25-29% with diffuse LV hypokinesis Ordered echo for AM Legs quite swollen given one dose of lasix in emergency department Second dose ordered for AM Continue to monitor I's and O's and daily weights Admitted to PCU telemetry Continuing home ASA 81 atorvastatin 10 and carvedilol Patient has declined AICD and continues to decline it though when discussing code status he would want to be a full code COPD Patient with COPD, however declined PFT's and other investigations per pulmonol stacie notes On 4L O2 at home currently oxygenating at baseline patient frequently takes off oxygen to walk around outside or to use restroom and frequently falls and has to crawl back or to stand CXR showing no acute changes or pneumonia Continuing home meds Frequent Falls Patient with history of frequent falls PT/OT evals ordered may benefit from rehabilitation DVT PPx: Heparin drip F/E/N: [employer] Diet Dispo: PCU tele for drips, will need to be transitioned to PO meds (2) Cardiomyopathy: (3) Acute respiratory failure with hypoxia and hypercapnia: (4) Atrial fibrillation with RVR: History of Present Illness Chief Complaint: Back Pain Primary Care Provider: Kanika Daniels MD Mr. Marcos Domingo is a 79 year old man with a past medical history significant for severe cardiomyopathy and CHF (Last echo showing EF of 25-29%, declined internal cardioverter defibrillator), Paroxysmal Atrial Fibrillation, severe COPD (Patient declined PFT's and other pulmonology workup recommendations on 3-4 L at home). He is notoriously intermittently noncompliant with his home medication per outside records and has repeatedly refused further workup of his medical problems. Patient is here because of his back pain. He has noticed it for about the last 4-6 weeks and finally decided to come in because his forced him to. Pain is located in mid back. He has no other symptoms or concerns at the moment He denies chest pain, shortness of breath, fevers, chills, leg swelling, abdominal pain, change in bowel habits dysuria, any other pain, or anything else. He tells me his breathing is about the same as it usually is and he has no other pain right now. He takes warfarin at home but is not sure of any of his other medicines. He has oxygen at home, but takes it on and off fairly frequently to go to the bathroom or to go walk around outside. If he falls down he tells me he pushes himself back up and keeps going and jokes that that could be where the broken bones come from. On presentation to the ED patient was found to be in atrial fibrillation with RVR with rates into the 150's was given MgSO4 1 gram and rates returned to the 110's. Hemodynamically stable throughout. 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 Patient's father had prostate cancer when he was 74 years old and from it. Allergies Allergy/AdvReac Type Severity Reaction Status Date / Time prednisone Allergy Severe SWELLING, Verified 12/15/19 21:02 TACHYCARDIA, RENAL FAILURE Home Medications Home Medications Medication Instructions Recorded Confirmed Type Breo Ellipta 1 inh INHALATION QDL 09/28/18 12/15/19 History albuterol sulfate [Ventolin HFA] 2 puff INHALATION Q4 PRN 09/28/18 12/15/19 History atorvastatin 10 mg PO QPM 09/28/18 12/15/19 History carvedilol 3.125 mg PO BID 09/28/18 12/15/19 History warfarin See Rx Instructions .ROUTE .COMPLEX 09/28/18 12/15/19 History tiotropium bromide 2.5 2 puffs INH DAILY 09/19/19 12/15/19 History mcg/actuation mist for inhalation furosemide 40 mg tablet 40 mg PO [id number] 12/05/19 12/15/19 History Past Med/Surg History Medical History (Updated 12/16/19 @ 01:15 by Jose Carlos Valle MD) Anemia Atrial fibrillation Chronic obstructive pulmonary disease inhaler prn/daily--ordered 2L N/C continuous, pt refuses to wear Congestive heart failure on coumadin Dementia Hyperlipidemia Hypertension On anticoagulant therapy Severe chronic obstructive pulmonary disease Surgical History History of bilateral cataract extraction History of cardiac cath 2012--[facility], no stents History of tonsillectomy History of tooth extraction wisdom teeth Hx of vasectomy Social History Preferred Language: Kazakh Communication Ability: Effective Packaging Inspector Required: No Beliefs That Will Affect Care: None Current Living Situation: Spouse Feels Safe at Home: Yes Smoking Status: Former smoker Tobacco Type: cigarettes and smokeless tobacco ; Second Hand Exposure: No ; Hx Alcohol Use: No Hx Substance Use: No Seatbelt Use: always Review of Systems Constitutional: no fever, no chills and no sweats Respiratory: no cough and no dyspnea Cardiovascular: no chest pain, no dyspnea, no palpitations and no syncope Gastrointestinal: no abdominal pain, no nausea, no vomiting, no constipation and no diarrhea/loose stools Genitourinary: + nocturia; no dysuria Physical Exam Constitutional: 79 year old man appearing stated age in no apparent distress Eyes: PERRL, conjunctivae normal, anicteric sclerae ENMT: Patient with adentulous smile remaining teeth appear carious Respiratory: Patient in no apparent respiratory distress at rest but does get winded after talking for some time. Breath sounds decreased in all lung coronado Cardiovascular: Irregularly irregular rhythm, tachycardic, no murmurs, rubs, skips or gallops Gastrointestinal (Abdomen): Abdomen Soft/nontender Skin: no rashes, warm and dry Results & Data Vital Signs (Past 12 Hours) Vital Signs Temp Pulse Pulse Resp BP BP Pulse Ox 12/15/19 23:40 114 H 22 128/80 97 12/15/19 23:29 96 H 18 99 12/15/19 20:08 36.6 C 135 H 20 144/81 H 86 L Supervising Physician Co-Signing Physician Notes Patient was seen and examined by me personally. I reviewed the chart, the orders and discussed the case in detail with Dr. Jose Carlos Valle MD. I read this H&P and agree with its contents to entirety. Resident Activity Tracking Resident Involvement: Resident Care Provided Care Provided: Adult Hospital Medicine
[2019-12-16 00:21] LABS: Appearance Urine Clear (Clear); Bacteria Urine Automated Negative (Negative); Bilirubin Urine Negative (Negative); Blood Urine 1+ (Negative); Color Urine Yellow; Epithelial Cell Urine Auto 0-5 /lpf (0-5); Glucose Urine UA Negative (Negative); Ketones Urine Negative (Negative); Leukocyte Esterase Urine Negative (Negative); Nitrite Urine Negative (Negative); Protein Urine Negative (Negative); Specific Gravity Urine > 1.045 (1.000-1.030); Urobilinogen Urine Positive (Negative)
[2019-12-16] MEDS: MAGNESIUM SULFATE / D5W 1 GM/100 ML BAG IV SCH ×2 (01:12→01:18)
--- NOTE | 2019-12-16 01:48 | Emergency Department Note ---
Entered by Soila Ortiz acting as a scribe for History of Present Illness General Chief complaint: Back Injury/Pain Stated complaint: BACK PAIN, DOUBLE VISION, SWOLLEN FEET Time Seen by Provider: 12/15/19 20:19 History of Present Illness Provider complaint: back pain Onset (ago): week(s) 2 Location: back (lower back and inbetween shoulder blades) Pain Consistency: + constant Maximum Pain Intensity: 3 Exacerbated By: + movement Associated symptoms: + denies other symptoms (abdominal pain) and + other (legs more swollen, 4L of oxygen at home, takes Furosemide) The patient is a 79 year old male who presents to the ED with complaints of constant back pain that started 2 weeks ago. The patient states this pain is in his lower back and between his shoulder blades. The patient states that his back pain is exacerbated by movement. The patients states that she is worried that this pain may be related to the patients kidney. Per , the patients legs are much more swollen than usual, but he does take Furosemide. Per , the patient usually wears 4L of oxygen at home. The patient denies abdominal pain. Home Medications Home Medications Medication Instructions Recorded Confirmed Type Breo Ellipta 1 inh INHALATION QDL 09/28/18 12/15/19 History albuterol sulfate [Ventolin HFA] 2 puff INHALATION Q4 PRN 09/28/18 12/15/19 History atorvastatin 10 mg PO QPM 09/28/18 12/15/19 History carvedilol 3.125 mg PO BID 09/28/18 12/15/19 History warfarin See Rx Instructions .ROUTE .COMPLEX 09/28/18 12/15/19 History tiotropium bromide 2.5 2 puffs INH DAILY 09/19/19 12/15/19 History mcg/actuation mist for inhalation furosemide 40 mg tablet 40 mg PO [id number] 12/05/19 12/15/19 History Allergies Allergy/AdvReac Type Severity Reaction Status Date / Time prednisone Allergy Severe SWELLING, Verified 12/15/19 21:02 TACHYCARDIA, RENAL FAILURE Past Med/Surg History Medical History Anemia Atrial fibrillation Chronic obstructive pulmonary disease inhaler prn/daily--ordered 2L N/C continuous, pt refuses to wear Congestive heart failure on coumadin Dementia Hyperlipidemia Hypertension On anticoagulant therapy Severe chronic obstructive pulmonary disease Surgical History History of bilateral cataract extraction History of cardiac cath 2012--[facility], no obstructive disease History of tonsillectomy History of tooth extraction wisdom teeth Hx of vasectomy Family History Mother Family hx of colon cancer Social History Preferred Language: French Communication Ability: Effective Ux Designer Required: No Beliefs That Will Affect Care: None Current Living Situation: Spouse and Family Feels Safe at Home: Yes Smoking Status: Former smoker Tobacco Type: cigarettes and smokeless tobacco ; Second Hand Exposure: No ; Hx Alcohol Use: No Hx Substance Use: No Seatbelt Use: always Review of Systems See HPI for pertinent positives & negatives. and A total of 10 systems reviewed and were otherwise negative Physical Exam Vital Signs Vital Signs - 24 hr 12/15/19 20:08 12/15/19 21:07 12/15/19 21:10 Temperature 36.6 C Temperature Source Oral Pulse Rate 135 H 106 H 135 H Pulse Rate [Right Radial] Pulse Rate from SpO2 Sensor 102 H 125 H Pulse Rhythm [Right Radial] Pulse Strength [Right Radial] Respiratory Rate 20 25 H 19 Respiratory Effort / Characteristics Non-Labored Spontaneous Respiratory Depth Normal Respiratory Pattern Blood Pressure 144/81 H Blood Pressure [Right Arm] Blood Pressure Mean 102 Blood Pressure Mean [Right Arm] Pulse Oximetry 86 L 99 100 Oxygen Delivery Method Room Air Nasal Cannula Nasal Cannula Oxygen Flow Rate 4 4 Sepsis Action Taken by Nursing No Action Required 12/15/19 21:19 12/15/19 21:20 12/15/19 21:30 Temperature Temperature Source Pulse Rate 93 H 96 H 101 H Pulse Rate [Right Radial] Pulse Rate from SpO2 Sensor 95 H 103 H 108 H Pulse Rhythm [Right Radial] Pulse Strength [Right Radial] Respiratory Rate 11 L 18 18 Respiratory Effort / Characteristics Respiratory Depth Respiratory Pattern Blood Pressure 128/90 131/73 Blood Pressure [Right Arm] Blood Pressure Mean 101 90 Blood Pressure Mean [Right Arm] Pulse Oximetry 100 100 99 Oxygen Delivery Method Nasal Cannula Nasal Cannula Nasal Cannula Oxygen Flow Rate 4 4 4 Sepsis Action Taken by Nursing 12/15/19 21:31 12/15/19 21:40 12/15/19 21:50 Temperature Temperature Source Pulse Rate 100 H 94 H 101 H Pulse Rate [Right Radial] Pulse Rate from SpO2 Sensor 98 H 97 H 110 H Pulse Rhythm [Right Radial] Pulse Strength [Right Radial] Respiratory Rate 19 17 18 Respiratory Effort / Characteristics Respiratory Depth Respiratory Pattern Blood Pressure Blood Pressure [Right Arm] Blood Pressure Mean Blood Pressure Mean [Right Arm] Pulse Oximetry 99 99 99 Oxygen Delivery Method Nasal Cannula Nasal Cannula Nasal Cannula Oxygen Flow Rate 4 4 4 Sepsis Action Taken by Nursing 12/15/19 22:24 12/15/19 22:25 12/15/19 22:30 Temperature Temperature Source Pulse Rate 95 H 94 H 87 Pulse Rate [Right Radial] Pulse Rate from SpO2 Sensor 98 H 98 H 90 Pulse Rhythm [Right Radial] Pulse Strength [Right Radial] Respiratory Rate 16 8 L 9 L Respiratory Effort / Characteristics Respiratory Depth Respiratory Pattern Blood Pressure 137/94 135/69 Blood Pressure [Right Arm] Blood Pressure Mean 115 84 Blood Pressure Mean [Right Arm] Pulse Oximetry 93 95 99 Oxygen Delivery Method Nasal Cannula Nasal Cannula Nasal Cannula Oxygen Flow Rate 4 4 4 Sepsis Action Taken by Nursing 12/15/19 22:31 12/15/19 22:40 12/15/19 22:50 Temperature Temperature Source Pulse Rate 94 H 85 92 H Pulse Rate [Right Radial] Pulse Rate from SpO2 Sensor 96 H 88 94 H Pulse Rhythm [Right Radial] Pulse Strength [Right Radial] Respiratory Rate 1 L 18 7 L Respiratory Effort / Characteristics Respiratory Depth Respiratory Pattern Blood Pressure Blood Pressure [Right Arm] Blood Pressure Mean Blood Pressure Mean [Right Arm] Pulse Oximetry 99 99 98 Oxygen Delivery Method Nasal Cannula Nasal Cannula Nasal Cannula Oxygen Flow Rate 4 4 4 Sepsis Action Taken by Nursing 12/15/19 23:00 12/15/19 23:01 12/15/19 23:10 Temperature Temperature Source Pulse Rate 82 86 112 H Pulse Rate [Right Radial] Pulse Rate from SpO2 Sensor 80 88 85 Pulse Rhythm [Right Radial] Pulse Strength [Right Radial] Respiratory Rate 23 Respiratory Effort / Characteristics Respiratory Depth Respiratory Pattern Blood Pressure 124/74 Blood Pressure [Right Arm] Blood Pressure Mean 83 Blood Pressure Mean [Right Arm] Pulse Oximetry 99 99 Oxygen Delivery Method Nasal Cannula Nasal Cannula Nasal Cannula Oxygen Flow Rate 4 4 4 Sepsis Action Taken by Nursing 12/15/19 23:20 12/15/19 23:29 12/15/19 23:30 Temperature Temperature Source Pulse Rate 85 98 H Pulse Rate [Right Radial] 96 H Pulse Rate from SpO2 Sensor 82 93 H Pulse Rhythm [Right Radial] Pulse Strength [Right Radial] Respiratory Rate 18 12 Respiratory Effort / Characteristics Non-Labored Spontaneous Respiratory Depth Respiratory Pattern Blood Pressure 128/80 Blood Pressure [Right Arm] Blood Pressure Mean 89 Blood Pressure Mean [Right Arm] Pulse Oximetry 99 99 99 Oxygen Delivery Method Nasal Cannula Nasal Cannula Nasal Cannula Oxygen Flow Rate 4 3 4 Sepsis Action Taken by Nursing 12/15/19 23:40 12/16/19 00:04 12/16/19 00:10 Temperature Temperature Source Pulse Rate 109 H Pulse Rate [Right Radial] 114 H Pulse Rate from SpO2 Sensor 112 H 114 H 111 H Pulse Rhythm [Right Radial] Regular Pulse Strength [Right Radial] Normal Respiratory Rate 20 Respiratory Effort / Characteristics Spontaneous Respiratory Depth Respiratory Pattern Regular Blood Pressure Blood Pressure [Right Arm] 128/80 Blood Pressure Mean Blood Pressure Mean [Right Arm] 96 Pulse Oximetry 94 88 L Oxygen Delivery Method Nasal Cannula Nasal Cannula Room Air Oxygen Flow Rate 4 4 Sepsis Action Taken by Nursing GENERAL: Awake, alert, well-appearing, in no acute distress HENT: Normocephalic, atraumatic. Oropharynx unremarkable. EYES: Normal conjunctiva. Sclera non-icteric. NECK: Supple. No nuchal rigidity. FROM. No JVD. RESPIRATORY: Clear to auscultation. CARDIAC: Regular rate, normal rhythm. Extremities warm and well perfused. Pulses equal. ABDOMEN: Soft, non-distended. No tenderness to palpation. No rebound or guarding. No masses. RECTAL: Deferred. MUSCULOSKELETAL: Chest examination reveals no tenderness. The back is symmetrical on inspection without obvious abnormality. There is no CVA tenderness to palpation. No midline back tenderness. Patient is complaining of pain in T-12 region. No joint edema. LOWER EXTREMITIES: Calves are equal size bilaterally and non-tender. 2+ pitting edema bilaterally. No discoloration. NEURO: Normal sensorium. No sensory or motor deficits noted. SKIN: No rash or jaundice noted. Course Course 2020: Past medical records reviewed. The patient was evaluated in room A11B. A complete history and physical exam was performed. 2109: I reevaluated the patient and he is resting comfortably. I updated him on the test results thus far. Administered Medications Discontinued Medications Carvedilol (Coreg) 3.125 mg PO BID MARIE Stop: 01/15/20 08:59 Last Admin: 12/16/19 09:40 Dose: 3.125 mg Documented by: [id number] Fluticasone/Vilanterol (Breo Ellipta 200/25 Mcg Inh) 1 puffs INH QDL MARIE Stop: 01/15/20 11:29 Last Admin: 12/16/19 12:40 Dose: 1 puffs Documented by: [id number] Furosemide (Lasix) 40 mg IV NOW STA Stop: 12/15/19 23:21 Last Admin: 12/15/19 23:37 Dose: 40 mg Documented by: [id number] Heparin Sodium (Porcine) (Heparin Iv Bolus) Confirm Administered Dose 10,000 units .ROUTE .STK-MED ONE Stop: 12/16/19 02:03 Last Admin: 12/16/19 02:18 Dose: 5,000 units Documented by: [id number] Cosigned by: [id number] Heparin Sodium/Dextrose (Heparin Sodium/Dextrose) Confirm Administered Dose 25,000 units IV .STK-MED ONE Stop: 12/16/19 02:03 Last Admin: 12/16/19 02:17 Dose: 25,000 units Documented by: [id number] Cosigned by: [id number] Magnesium Sulfate/Dextrose (Magnesium Sulfate / D5w) 1 gm in 100 mls @ 100 mls/hr IV Q1H [facility] Stop: 12/16/19 01:14 Last Infusion: 12/16/19 03:45 Dose: 0 mls/hr Documented by: [id number] Admin: 12/16/19 01:18 Dose: 100 mls/hr Documented by: [id number] Infusion: 12/16/19 01:18 Dose: 100 mls/hr Documented by: [id number] Admin: 12/16/19 01:12 Dose: 100 mls/hr Documented by: [id number] Infusion: 12/15/19 22:56 Dose: 0 mls/hr Documented by: [id number] Admin: 12/15/19 21:20 Dose: 100 mls/hr Documented by: [id number] Infusion: 12/15/19 21:20 Dose: 100 mls/hr Documented by: [id number] Admin: 12/15/19 21:19 Dose: 100 mls/hr Documented by: [id number] Diltiazem HCl 125 mg/ Dextrose 125 mls @ 5 mls/hr IV .Q24H [facility]; Protocol Stop: 01/15/20 04:26 Last Admin: 12/16/19 06:10 Dose: Not Given Documented by: [id number] Furosemide 40 mg/ Syringe 4 mls @ 4 mls/min IV DAILY MARIE Stop: 01/15/20 08:59 Last Admin: 12/16/19 09:40 Dose: 4 mls/min Documented by: [id number] Ioversol (Optiray 320 100ml) 90 ml IV ONCE PRN PRN Reason: Interaction Checking Stop: 12/19/19 22:07 Last Admin: 12/15/19 22:08 Dose: 90 ml Documented by: [id number] Levalbuterol HCl (Xopenex 1.25mg/3ml Neb) 1.25 mg NEB NOW STA Stop: 12/15/19 23:20 Last Admin: 12/15/19 23:27 Dose: 1.25 mg Documented by: [id number] Lidocaine HCl (Xylocaine 2% Jelly) Confirm Administered Dose 5 ml .ROUTE .STK- MED ONE Stop: 12/16/19 04:32 Last Admin: 12/16/19 04:41 Dose: 2 ml Documented by: [id number] Umeclidinium [place] (Incruse Ellipta) 1 puffs INH DAILY MARIE Stop: 01/15/20 08:59 Last Admin: 12/16/19 09:41 Dose: 1 puffs Documented by: [id number] Medical Decision Making Differential Diagnosis Differential diagnosis: Etiologies such as muscular strain, fracture, metastatic disease, disc herniation, sciatica, epidural abscess, vertebral osteomyelitis, discitis, spinal epidural hematoma, cord compression, cauda equina/conus medullaris syndrome, aortic disease, infection, shingles, renal colic, gastrointestinal, acute exacerbation of chronic back pain, as well as others were entertained. Medical Records Attestation: I reviewed the patient's medical records. Home Medications Current Medication List: was personally reviewed by me Laboratory Data Attestation: I reviewed the patient's lab results. Result diagrams: 12/16/19 13:48 12/16/19 07:04 Lab Results 12/15/19 12/15/19 12/15/19 Range/Units 21:04 21:04 21:04 WBC 8.26 (4.8-10.8) K/uL RBC 3.68 L (4.7-6.1) M/uL Hgb 13.4 L (14.0-18.0) g/dL Hct 39.6 L (42-52) % MCV 107.6 H (80-100) fL MCH 36.4 H (25-34) pg MCHC 33.8 (32-36) g/dL RDW Std Deviation 90.7 H (36.4-46.3) fL RDW Coeff of Yasmine 22.6 H (11.5-14.5) % Plt Count 223 (130-400) K/uL MPV 11.0 H (7.4-10.4) fL Immature Gran % (Auto) 0.8 % Neut % (Auto) 82.5 % Lymph % (Auto) 7.5 % [place] % (Auto) 8.0 % Eos % (Auto) 1.1 % Baso % (Auto) 0.1 % Immature Gran # (Auto) 0.07 H (0.00-0.02) K/uL Neut # (Auto) 6.81 H (1.4-6.5) K/uL Lymph # (Auto) 0.62 L (1.2-3.4) K/uL [place] # (Auto) 0.66 H (0.11-0.59) K/uL Eos # (Auto) 0.09 (0-0.5) K/uL Baso # (Auto) 0.01 (0-0.2) K/uL Absolute Nucleated RBC 0.04 H (0-0) K/uL Nucleated RBC % (auto) 0.4 % Hypogranular Neuts 1+ Basophilic Stippling Occasional Anisocytosis Present Target Cells 1+ PT 14.2 H (9.0-12.0) Seconds INR 1.4 H (0.9-1.1) APTT 30.0 (21.0-31.0) Seconds PTT Ratio 1.1 Sodium 141 (136-145) mmol/L Potassium 4.6 (3.5-5.1) mmol/L Chloride 104 (98-107) mmol/L Carbon Dioxide 36 H (21-32) mmol/L Anion Gap 0 L (3-11) BUN 18 (7-18) mg/dl Creatinine 0.93 (0.6-1.4) mg/dl Est Cr Clr Drug Dosing 53.5 ml/min Est GFR ( Amer) 91.5 Est GFR (Non-Af Amer) 78.9 BUN/Creatinine Ratio 19.7 (10-20) Glucose 126 H (70-99) mg/dl Calcium 8.9 (8.5-10.1) mg/dl Total Bilirubin 1.4 H (0.2-1) mg/dl AST 21 (15-37) U/L ALT 18 (12-78) U/L Alkaline Phosphatase 72 (45-117) U/L Total Creatine Kinase 44 (39-308) U/L Troponin I 0.032 (0-0.045) ng/ml NT-Pro-B Natriuret Pep 29182 H (0-1800) pg/ml Total Protein 6.6 (6.4-8.2) gm/dl Albumin 3.4 (3.4-5.0) gm/dl Globulin 3.2 (2.5-4.0) gm/dl Albumin/Globulin Ratio 1.1 (0.9-2) TSH 3.810 (0.300-4.500) uIu/ml Urine Color Urine Appearance (Clear) Urine pH (4.5-7.5) Ur Specific [place] (1.000-1.030) Urine Protein (Negative) Urine Glucose (UA) (Negative) Urine Ketones (Negative) Urine Blood (Negative) Urine Nitrite (Negative) Urine Bilirubin (Negative) Urine Urobilinogen (Negative) Ur Leukocyte Esterase (Negative) Urine WBC (Auto) (0-5) /hpf Urine RBC (Auto) (0-4) /hpf U Hyaline Cast (Auto) (0-5) /lpf U Epithel Cells (Auto) (0-5) /lpf Urine Bacteria (Auto) (Negative) 12/15/19 Range/Units 23:22 WBC (4.8-10.8) K/uL RBC (4.7-6.1) M/uL Hgb (14.0-18.0) g/dL Hct (42-52) % MCV (80-100) fL MCH (25-34) pg MCHC (32-36) g/dL RDW Std Deviation (36.4-46.3) fL RDW Coeff of Yasmine (11.5-14.5) % Plt Count (130-400) K/uL MPV (7.4-10.4) fL Immature Gran % (Auto) % Neut % (Auto) % Lymph % (Auto) % [place] % (Auto) % Eos % (Auto) % Baso % (Auto) % Immature Gran # (Auto) (0.00-0.02) K/uL Neut # (Auto) (1.4-6.5) K/uL Lymph # (Auto) (1.2-3.4) K/uL [place] # (Auto) (0.11-0.59) K/uL Eos # (Auto) (0-0.5) K/uL Baso # (Auto) (0-0.2) K/uL Absolute Nucleated RBC (0-0) K/uL Nucleated RBC % (auto) % Hypogranular Neuts Basophilic Stippling Anisocytosis Target Cells PT (9.0-12.0) Seconds INR (0.9-1.1) APTT (21.0-31.0) Seconds PTT Ratio Sodium (136-145) mmol/L Potassium (3.5-5.1) mmol/L Chloride (98-107) mmol/L Carbon Dioxide (21-32) mmol/L Anion Gap (3-11) BUN (7-18) mg/dl Creatinine (0.6-1.4) mg/dl Est Cr Clr Drug Dosing ml/min Est GFR ( Amer) Est GFR (Non-Af Amer) BUN/Creatinine Ratio (10-20) Glucose (70-99) mg/dl Calcium (8.5-10.1) mg/dl Total Bilirubin (0.2-1) mg/dl AST (15-37) U/L ALT (12-78) U/L Alkaline Phosphatase (45-117) U/L Total Creatine Kinase (39-308) U/L Troponin I (0-0.045) ng/ml NT-Pro-B Natriuret Pep (0-1800) pg/ml Total Protein (6.4-8.2) gm/dl Albumin (3.4-5.0) gm/dl Globulin (2.5-4.0) gm/dl Albumin/Globulin Ratio (0.9-2) TSH (0.300-4.500) uIu/ml Urine Color Yellow Urine Appearance Clear (Clear) Urine pH 7.0 (4.5-7.5) Ur Specific [place] > 1.045 H (1.000-1.030) Urine Protein Negative (Negative) Urine Glucose (UA) Negative (Negative) Urine Ketones Negative (Negative) Urine Blood 1+ H (Negative) Urine Nitrite Negative (Negative) Urine Bilirubin Negative (Negative) Urine Urobilinogen Positive H (Negative) Ur Leukocyte Esterase Negative (Negative) Urine WBC (Auto) 1-5 (0-5) /hpf Urine RBC (Auto) 10-30 H (0-4) /hpf U Hyaline Cast (Auto) 1-5 (0-5) /lpf U Epithel Cells (Auto) 0-5 (0-5) /lpf Urine Bacteria (Auto) Negative (Negative) Imaging Data Radiologist's Impression: Radiology results as stated below per my review and the radiologist's interpretation: XR chest 1V portable CLINICAL HISTORY: 79 years-old Male presenting with weakness. TECHNIQUE: Portable upright AP view of the chest was obtained. COMPARISON: 06/03/2019. FINDINGS: Atherosclerosis of the aortic arch. Cardiac silhouette enlarged. Heterogeneous radiolucency of the lungs. Lungs are hyperinflated. No focal opacity. No pleural effusion or pneumothorax. Osteopenia may be present. IMPRESSION: 1. Findings suggest emphysema. No focal infiltrate to suggest pneumonia. ACT 112: Negative or not required by law. Electronically signed by: Killian Julian M.D. 12/15/2019 9:[address] cervical spine wo con CLINICAL HISTORY: 79 years-old Male presenting with Pt c/o b/l shoulder pain. TECHNIQUE: Multidetector CT of the cervical spine was performed without the use of intravenous contrast. IV contrast: None. One or more dose lowering techniques were used consistent with the principles of ALARA (as low as reasonably achievable), including automatic exposure control, mA or kV adjustment to individual patient size, and/or use of iterative reconstruction. COMPARISON: None. CT DOSE (mGy.cm): The estimated cumulative dose is 851.94. 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 Normal cervical lordosis. Vertebral bodies maintain normal height and alignment. Moderate to severe intervertebral disc height loss at nearly every cervical level. Disc osteophyte complexes at every level with mild to moderate posterior bony spurring greatest at C3-4, C5-6, and C6-7. Results in osseous spinal canal narrowing. Violation of the soft tissues of the spinal canal does not demonstrate further effacement. Multilevel osseous neural foraminal narrowing secondary to uncovertebral hypertrophy and facet arthropathy. No acute fracture or subluxation. Visualized portion of the skull base intact. Emphysematous changes at the lung apices. Paraspinal soft tissues within normal limits. IMPRESSION: 1. No acute osseous injury of the cervical spine. 2. Multilevel degenerative changes. 3. Emphysema. ACT 112: Negative or not required by law. Electronically signed by: Killian Julian M.D. 12/15/2019 10:[address] abd pelvis IV con only CLINICAL HISTORY: 79 years-old Male presenting with Pt c/o back pain. TECHNIQUE: Multidetector CT of the abdomen and pelvis was performed after the administration of intravenous contrast. IV contrast: 90 mL of Optiray 320. One or more dose lowering techniques were used consistent with the principles of ALARA (as low as reasonably achievable), including automatic exposure control, m A or kV adjustment to individual patient size, and/or use of iterative reconstruction. COMPARISON: Chest x-ray from 05/18/2017. CT DOSE (mGy.cm): The estimated cumulative dose is 851.94. 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 Lung bases: Multichamber enlargement of the heart with pronounced right atrial enlargement. Trace right pleural effusion. Emphysema. Minimal bibasilar atelectasis. Liver: Normal morphology. No liver lesion. Hypoattenuation along the fissure for the ligamentum teres likely perfusional variation or focal fat. Patent hepatic vasculature. Biliary: No intrahepatic or extrahepatic biliary ductal dilatation. Gallbladder contains gallstones. Pancreas: Moderate parenchymal atrophy. Spleen: Normal. Adrenal glands: Normal. Kidneys and ureters: Normal. No hydronephrosis. Bladder: Circumferential bladder wall thickening. Pelvic organs: Significantly enlarged prostate with heterogeneous enhancement. Focally abnormal enhancement in the left anterior prostate. Seminal vesicles normal. Vasectomy clips noted. Bilateral hydroceles are also present, which are large, right greater than left. Bowel: A portion of the proximal sigmoid colon is contained within the left inguinal hernia. No bowel wall thickening or evidence of resulting obstruction. Trace fluid in the hernia sac. The appendix is normal. Distal ileum contained within the right inguinal hernia, with trace fluid the hernia sac. No bowel obstruction. Peritoneal cavity: Trace fluid in the pelvis and in the bilateral hernia sacs. No free intraperitoneal gas. Lymph nodes: No enlarged lymph nodes in the abdomen or pelvis. Vasculature: Atherosclerosis of the normal caliber abdominal aorta. IVC patent. Abdominal wall: Bilateral inguinal hernias, which are bowel containing as mentioned. Mild body wall edema diffusely. Musculoskeletal: Degenerative changes of the spine. Osteopenia. Mild degenerativ e changes of the hips. Sclerotic osseous lesion in the left parasymphyseal pelvis. Bilateral pars defects of L5. Moderate compression deformity of T12 without retropulsion of the posterior cortex. This is unchanged when comparing to lateral chest x-ray from 05/18/2017. IMPRESSION: 1. Enlarged and heterogeneous prostate. Enhancement pattern of the prostate raises concern for an underlying lesion. Correlate with PSA and consider urologic consultation for possible prostate MRI. 2. Indeterminate sclerotic lesion in the pelvis raises concern for osseous metastatic disease. Correlate with findings on prostate MRI and consider possible nonurgent nuclear medicine bone scan. 3. Chronic compression deformity of T12 unchanged since at least 2017. 4. Bilateral inguinal hernias containing small bowel and sigmoid colon with trace fluid in the hernia sacs. No bowel obstruction or convincing evidence of strangulation. 5. Cardiomegaly. 6. Emphysema. 7. Additional chronic findings as above. ACT 112: Negative or not required by law. Electronically signed by: Killian Julian M.D. 12/15/2019 10:[address] thoracic spine wo con CLINICAL HISTORY: 79 years-old Male presenting with Pt c/o low back pain. TECHNIQUE: Multidetector CT of the thoracic spine was performed without the use of intravenous contrast. IV contrast: None. One or more dose lowering techniques were used consistent with the principles of ALARA (as low as reasonably achievab le), including automatic exposure control, mA or kV adjustment to individual patient size, and/or use of iterative reconstruction. COMPARISON: Correlation made to chest x-ray from 05/18/2017. CT DOSE (mGy.cm): The estimated cumulative dose is 851.94. 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 Mildly exaggerated thoracic kyphosis. Mild height loss with slight wedging deformity of T6. Minimal height loss of T7. Moderate height loss with wedging deformity of T12, which is unchanged since prior lateral chest x-ray. The deformities at T6 and T7 are new since the prior radiograph. No retropulsion of the posterior cortices of these compression fractures. Intervertebral disc heights preserved. Small disc osteophyte complexes noted at several levels. Posterior spondylitic spurring noted to a mild to moderate degree at T11-12 with results in osseous spinal canal narrowing. No significant osseous neural foraminal narrowing. No acute subluxation. Atherosclerosis of the thoracic aorta. Coronary artery and aortic valve calcification. Paraspinal musculature within normal limits. Lungs with centrilobular emphysematous changes. IMPRESSION: 1. Mild compression deformity at T6 and minimal compression deformity T7. These fractures are new since 2017. Correlate with point tenderness to assess for acuity. 2. Chronic moderate compression fracture at T12 unchanged since at least 2017. 3. No retropulsion of the cortices of the fractured levels. 4. Mild multilevel degenerative changes with osseous spinal canal narrowing at T11-12. 5. Emphysema. ACT 112: Negative or not required by law. Electronically signed by: Killian Julian M.D. 12/15/2019 10:[address] lumbar spine wo con CLINICAL HISTORY: 79 years-old Male presenting with Pt c/o low back pain. TECHNIQUE: Multidetector CT of the lumbar spine was performed without the use of intravenous contrast. IV contrast: None. One or more dose lowering techniques were used consistent with the principles of ALARA (as low as reasonably achievable), including automatic exposure control, mA or kV adjustment to individual patient size, and/or use of iterative reconstruction. COMPARISON: None. CT DOSE (mGy.cm): The estimated cumulative dose is 851.94 mGy.cm. 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 Minimal lumbar lordosis. Grade 1 anterolisthesis of L5 on S1 suggested. Bilateral pars defects of L5. Vertebral bodies otherwise maintain normal height and alignment allowing for incomplete visualization of the L5-S1 intervertebral disc space. No compression deformity allowing for incomplete visualization of the inferior endplate of L5. No acute appearing subluxation. No acute fracture o r acute appearing subluxation. Osseous neural foraminal narrowing noted at L5-S1 in large part due to atherosclerosis, left greater than right. Disc bulges at L3-4 and L4-5 results in mild spinal canal narrowing. Paraspinal soft tissues within normal limits. Atherosclerosis. IMPRESSION: 1. No acute osseous injury of the lumbar spine. 2. Grade 1 anterolisthesis of L5 on S1 secondary to bilateral pars defects of L5. Resultant left greater than right neural foraminal narrowing at this level. 3. Mild spinal canal stenosis secondary to disc bulges at L3-4 and L4-5. ACT 112: Negative or not required by law. Electronically signed by: Killian Julian M.D. 12/15/2019 10:49 PM ECG Data Attestation: I personally reviewed and interpreted this ECG as follows: Indication: + back/shoulder pain Rate (beats per minute): 117 Rhythm: + atrial fibrillation (with RVR) ECG ST segments: + ST depression (diffuse) ECG Findings: + PVCs Comparison ECG Date: from (06/03/2019) Change: the following changes noted (Afib is new) Blood Pressure Blood Pressure Findings: Elevated blood pressure Blood Pressure Disposition: Referred to patients primary care provider ESE Narrative This is a 79-year-old male complaining of low back pain. Using shared medical decision making with the patient and his the decision was made to send the patient for CAT scan of his spine along with his abdomen and pelvis. The patient was found to have an enlarged prostate and I am concerned that this may have metastasized to his spine causing the compression fractures. He also has l ytic lesions to his pelvis. I did discuss this findings with the patient's as the patient himself has dementia. Patient's would like him admitted to the hospital. I did discuss the case with the hospitalist service who did agree to admit the patient. Patient in the emergency department is given Dilaudid for his pain. He does not have an elevation in his white blood cell count hemogl obin appears stable. Impression & Plan Severe chronic obstructive pulmonary disease, Hematuria, Compression fracture Discharge Plan Visit Data *Final* Discharge Date/Time: 12/16/19 03:15 Chief Complaint: Back Injury/Pain Stated Complaint: BACK PAIN, DOUBLE VISION, SWOLLEN FEET ED Provider: Jose Lozano Discharge Problem: Severe chronic obstructive pulmonary disease, Hematuria, Compression fracture Patient Disposition: Admitted As Inpatient Condition: Fair Discharge Instructions Interventions: ED Discharge Assessment Last Done: 12/16/19 03:15 Discharge Problem: Hematuria Qualifiers: Hematuria type: unspecified type Qualified Code(s): R31.9 - Hematuria, unspecified The scribe's documentation has been prepared under my direction and personally reviewed by me in its entirety. I confirm that the note above accurately reflects all work, treatment, procedures, and medical decision making performed by me.
[2019-12-16] MEDS ORDERED: HEPARIN SOD (PORCINE) 1000 UNIT/ML 10 ML VIAL ONE (02:02)
[2019-12-16] MEDS ORDERED: HEPARIN 25000 UNIT/500 ML D5W IV ONE (02:02)
[2019-12-16] MEDS ORDERED: ALBUTEROL HFA 8 GM INHALER INH PRN (04:27)
[2019-12-16] MEDS ORDERED: POLYETHYLENE (MIRALAX) 17 GM PACK PO PRN (04:27)
[2019-12-16] MEDS ORDERED: dilTIAZem HCL 125 MG in DEXTROSE 5% 100 ML IV SCH (04:27)
[2019-12-16] MEDS ORDERED: ACETAMINOPHEN 325 MG TAB PO PRN (04:27)
[2019-12-16] MEDS ORDERED: ONDANSETRON INJ 2 MG/ML 2 ML VIAL IV PRN (04:27)
[2019-12-16] MEDS ORDERED: LIDOCAINE 2% JELLY 5 ML TUBE ONE (04:31)
--- NOTE | 2019-12-16 04:32 | Communication Note ---
Date of Service: December 16, 2019 Informed by nursing that patient was having runs of V. Tach about twelve beats with no hemodynamic instability. When went to check on patient found that he was having catherine hematuria. Discontinued his heparin drip and placed martinez with continuous irrigation. This may be secondary to a possible new malignancy. Checking K, Mag, and Phos now. replete as needed to optimize arrhythmias.
[2019-12-16] MEDS ORDERED: NURSING DECISION MEDICATION ONE (04:38)
--- NOTE | 2019-12-16 04:43 | Billing Data ---
Date of Service December 16, 2019 Coding Level of Care Code 41875 Initial Inpt Care Lvl 3
[2019-12-16] MEDS ORDERED: LIDOCAINE 2% JELLY 5 ML TUBE EXT PRN (05:00)
[2019-12-16 07:18] LABS: Basophils # (auto) 0.02 K/uL (0-0.2); Basophils % (auto) 0.2 %; Hemoglobin 12.9 g/dL (14.0-18.0); Immature Granulocytes # (auto) 0.09 K/uL (0.00-0.02); Immature Granulocytes % (auto) 0.9 %; Lymphocytes # (auto) 0.84 K/uL (1.2-3.4); Lymphocytes % (auto) 8.2 %; Mean Corpuscular Hgb Conc 34.9 g/dL (32-36); Mean Platelet Volume 11.1 fL (7.4-10.4); Monocytes # (auto) 1.16 K/uL (0.11-0.59); Monocytes % (auto) 11.3 %; Neutrophils # (auto) 8.05 K/uL (1.4-6.5); Neutrophils % (auto) 78.4 %; Nucleated RBC # (auto) 0.02 K/uL (0-0); Nucleated RBC % (auto) 0.2 %; Platelet Count 217 K/uL (130-400); RDW Coefficient of Variation 22.8 % (11.5-14.5); RDW Standard Deviation 89.7 fL (36.4-46.3); Red Blood Count 3.49 M/uL (4.7-6.1); White Blood Count 10.26 K/uL (4.8-10.8)
[2019-12-16 07:47] LABS: Anisocytosis Present; Stomatocytes 1+; Target Cells 1+
[2019-12-16 07:51] LABS: Albumin Level 3.3 gm/dl (3.4-5.0); BUN Creatinine Ratio 21.5 (10-20); Calcium 8.6 mg/dl (8.5-10.1); Creatinine Clr Calc Pharmacy 57.2 ml/min; Est GFR (African American) 96.5; Est GFR (Non-African American) 83.2; Potassium 4.3 mmol/L (3.5-5.1)
[2019-12-16 08:10] LABS: Bilirubin,Total 1.5 mg/dl (0.2-1); Globulin 3.2 gm/dl (2.5-4.0); Phosphorus 2.7 mg/dl (2.5-4.9); Total Protein 6.5 gm/dl (6.4-8.2)
[2019-12-16] MEDS ORDERED: UMECLIDINIUM BROMIDE 62.5MCG/BLISTER 7 PUFFS/INHALER INH ONE (09:00)
[2019-12-16] MEDS ORDERED: FUROSEMIDE 40 MG in SYRINGE 0 ML IV SCH (09:00)
[2019-12-16] MEDS ORDERED: carvediloL 3.125 MG TAB PO SCH (09:00)
[2019-12-16] MEDS ORDERED: UMECLIDINIUM BROMIDE 62.5MCG/BLISTER 7 PUFFS/INHALER INH SCH (09:00)
[2019-12-16] MEDS ORDERED: FUROSEMIDE 40 MG/4 ML VIAL IV SCH (09:00)
--- NOTE | 2019-12-16 11:15 | Electrocardiogram Report ---
Test Reason : Blood Pressure : / mmHG Vent. Rate : 117 BPM Atrial Rate : 156 BPM P-R Int : 000 ms QRS Dur : 134 ms QT Int : 294 ms P-R-T Axes : 000 005 182 degrees QTc Int : 410 ms Atrial fibrillation with rapid ventricular response with premature ventricular or aberrantly conducte d complexes Non-specific intra-ventricular conduction block Cannot rule out Anteroseptal infarct (cited on or before 03-JAN-2016) ST and T wave abnormality, consider inferolateral ischemia Abnormal ECG When compared with ECG of 03-JUN-2019 21:11, Atrial fibrillation has replaced Sinus rhythm Vent. rate has increased BY 40 BPM QRS duration has increased Confirmed by Jarrod Cunningham ([id number]) on 12/16/2019 11:15:25 AM Referred By: REFERRED SELF Confirmed By:Jarrod Cunningham
[2019-12-16] MEDS ORDERED: FLUTICASONE/VILANTEROL 200/25MCG 14 PUFFS/INHALER INH SCH (11:30)
[2019-12-16] MEDS ORDERED: FLUTICASONE/VILANTEROL 200/25MCG 14 PUFFS/INHALER INH ONE (11:30)
--- NOTE | 2019-12-16 13:15 | Cardiology Consultation ---
Date of Consultation December 16, 2019 Assessment & Plan (1) Atrial fibrillation with RVR: Spontaneous conversion to sinus rhythm after resuming usual medications would continue (2) Severe chronic obstructive pulmonary disease: No acute exacerbation urged use of oxygen (3) Cardiomyopathy: Nonischemic with severe LV dysfunction and compensated class 2-3 congestive heart failure patient has declined defibrillator as well as intensification of medical regimen History of Present Illness Reason for Consultation: Atrial fibrillation with elevated ventricular response rate Requesting Physician: Dr. Escobar Attending Physician: Kitty Escobar MD History of Present Illness Patient is a 79-year-old male with past and ongoing issues 1. Nonischemic cardiomyopathy. EF 25-29%. July 2016 2. Cardiac catheterization in [place] ~ 2012 with normal coronary arteries, per report. 3. Nonischemic Lexiscan nuclear stress testing in May 2017 4. Paroxysmal atrial fibrillation. Asymptomatic. Chronic coumadin anticoagulation. Target INR 2.0 - 2.5 1. Bilateral internal carotid artery disease 7. Hypertension 8. Dyslipidemia 9. Chronic obstructive lung disease O2 dependent with intermittent oxygen usage 10. Medical noncompliance Patient presented this admission for ER evaluation with symptoms of back pain worse with movement and history of past and recent falls. During initial evaluation he is found to be in atrial fibrillation with rapid response. Patient was not aware of any tachypalpitations dizziness or lightheadedness per his own record. He was restarted on usual medications on admission and he spontaneously converted to sinus rhythm this morning. Patient is only fair taking medications and oxygen supplementation. No signs or symptoms of congestive heart failure by description and x-ray. In past has declined prophylactic defibrillator for severe LV dysfunction and limits medication use and pulmonary dimensions as well He currently denies any bleeding difficulties melena medication additional hematuria. Notes no productive cough. Has chronic lower extremity edema. Wears oxygen "usually" Allergies Allergy/AdvReac Type Severity Reaction Status Date / Time prednisone Allergy Severe SWELLING, Verified 12/15/19 21:02 TACHYCARDIA, RENAL FAILURE Home Medications Home Medications Medication Instructions Recorded Confirmed Type Breo Ellipta 1 inh INHALATION QDL 09/28/18 12/15/19 History albuterol sulfate [Ventolin HFA] 2 puff INHALATION Q4 PRN 09/28/18 12/15/19 History atorvastatin 10 mg PO QPM 09/28/18 12/15/19 History carvedilol 3.125 mg PO BID 09/28/18 12/15/19 History warfarin See Rx Instructions .ROUTE .COMPLEX 09/28/18 12/15/19 History tiotropium bromide 2.5 2 puffs INH DAILY 09/19/19 12/15/19 History mcg/actuation mist for inhalation furosemide 40 mg tablet 40 mg PO 4XWK 12/05/19 12/15/19 History Patient History Medical History Anemia Atrial fibrillation Chronic obstructive pulmonary disease inhaler prn/daily--ordered 2L N/C continuous, pt refuses to wear Congestive heart failure on coumadin Dementia Hyperlipidemia Hypertension On anticoagulant therapy Severe chronic obstructive pulmonary disease Surgical History History of bilateral cataract extraction History of cardiac cath 2012--[facility], no obstructive disease History of tonsillectomy History of tooth extraction wisdom teeth Hx of vasectomy Family History Mother Family hx of colon cancer Social History Preferred Language: Citizen Of [place] Communication Ability: Effective Consulting Engineer Required: No Beliefs That Will Affect Care: None Current Living Situation: Spouse and Family Other Information That Helps Us Care for You: No Feels Safe at Home: Yes Safety Concerns: Feels Safe At This Time Smoking Status: Former smoker Tobacco Type: cigarettes and smokeless tobacco ; Do You Dip or Chew Tobacco: Yes ; Second Hand Exposure: No ; Hx Alcohol Use: No Hx Substance Use: No Seatbelt Use: always Physical Exam Constitutional: + thin; no acute distress Eyes: PERRL, conjunctivae normal, anicteric sclerae ENMT: external ear and nose normal, oropharynx normal Neck: trachea midline, no thyromegaly Respiratory: Diffusely diminished breath sounds with minimal wheezes on forced cough no rhonchi or rale Cardiovascular: Rate/Rhythm: regular rate and regular rhythm Heart Sounds: normal S1, normal S2 and + murmur (Grade 1/6 systolic); no gallop Palpation: normal PMI Vessels: normal carotid upstroke and radial pulses present; no JVD and no carotid bruit Extremities: + edema (1-2+ pedal edema present) Gastrointestinal (Abdomen): Percussion/Palpation: abdomen soft; abdomen nontender Musculoskeletal: no cyanosis or clubbing, extremities motor strength 5/5 Skin: no rashes, warm and dry Neurologic: PERRL, EOMI, accommodation nl, no face palsy, no dysarthria Psychiatric: A+Ox3, euthymic affect Results & Data Vital Signs (Past 12 Hours) Vital Signs Temp Pulse Pulse Resp BP Pulse Ox 12/16/19 11:21 36.7 C 75 20 129/74 96 12/16/19 06:53 36.6 C 93 H 20 129/78 96 12/16/19 03:45 36.5 C 93 H 22 137/81 91 Laboratory Results Laboratory Results WBC 10.26 K/uL (4.8-10.8) 12/16/19 07:04 RBC 3.49 M/uL (4.7-6.1) L 12/16/19 07:04 Hgb 12.9 g/dL (14.0-18.0) L 12/16/19 07:04 Hct 37.0 % (42-52) L 12/16/19 07:04 MCV 106.0 fL (80-100) H 12/16/19 07:04 MCH 37.0 pg (25-34) H 12/16/19 07:04 MCHC 34.9 g/dL (32-36) 12/16/19 07:04 RDW Std Deviation 89.7 fL (36.4-46.3) H 12/16/19 07:04 RDW Coeff of Yasmine 22.8 % (11.5-14.5) H 12/16/19 07:04 Plt Count 217 K/uL (130-400) 12/16/19 07:04 MPV 11.1 fL (7.4-10.4) H 12/16/19 07:04 Immature Gran % (Auto) 0.9 % 12/16/19 07:04 Neut % (Auto) 78.4 % 12/16/19 07:04 Lymph % (Auto) 8.2 % 12/16/19 07:04 [place] % (Auto) 11.3 % 12/16/19 07:04 Eos % (Auto) 1.0 % 12/16/19 07:04 Baso % (Auto) 0.2 % 12/16/19 07:04 Immature Gran # (Auto) 0.09 K/uL (0.00-0.02) H 12/16/19 07:04 Neut # (Auto) 8.05 K/uL (1.4-6.5) H 12/16/19 07:04 Lymph # (Auto) 0.84 K/uL (1.2-3.4) L 12/16/19 07:04 [place] # (Auto) 1.16 K/uL (0.11-0.59) H 12/16/19 07:04 Eos # (Auto) 0.10 K/uL (0-0.5) 12/16/19 07:04 Baso # (Auto) 0.02 K/uL (0-0.2) 12/16/19 07:04 Absolute Nucleated RBC 0.02 K/uL (0-0) H 12/16/19 07:04 Nucleated RBC % (auto) 0.2 % 12/16/19 07:04 Hypogranular Neuts 1+ 12/15/19 21:04 Basophilic Stippling Occasional 12/15/19 21:04 Anisocytosis Present 12/16/19 07:04 Target Cells 1+ 12/16/19 07:04 Stomatocytes 1+ 12/16/19 07:04 PT 14.2 Seconds (9.0-12.0) H 12/15/19 21:04 INR 1.4 (0.9-1.1) H 12/15/19 21:04 APTT 30.0 Seconds (21.0-31.0) 12/15/19 21:04 PTT Ratio 1.1 12/15/19 21:04 Sodium 140 mmol/L (136-145) 12/16/19 07:04 Potassium 4.3 mmol/L (3.5-5.1) 12/16/19 07:04 Chloride 101 mmol/L (98-107) 12/16/19 07:04 Carbon Dioxide 37 mmol/L (21-32) H 12/16/19 07:04 Anion Gap 2.0 (3-11) L 12/16/19 07:04 BUN 19 mg/dl (7-18) H 12/16/19 07:04 Creatinine 0.87 mg/dl (0.6-1.4) 12/16/19 07:04 Est Cr Clr Drug Dosing 57.2 ml/min 12/16/19 07:04 Est GFR ( Amer) 96.5 12/16/19 07:04 Est GFR (Non-Af Amer) 83.2 12/16/19 07:04 BUN/Creatinine Ratio 21.5 (10-20) H 12/16/19 07:04 Glucose 87 mg/dl (70-99) 12/16/19 07:04 Calcium 8.6 mg/dl (8.5-10.1) 12/16/19 07:04 Phosphorus 2.7 mg/dl (2.5-4.9) 12/16/19 07:04 Magnesium 3.0 mg/dl (1.8-2.4) H 12/16/19 07:04 Total Bilirubin 1.5 mg/dl (0.2-1) H 12/16/19 07:04 AST 17 U/L (15-37) 12/16/19 07:04 ALT 17 U/L (12-78) 12/16/19 07:04 Alkaline Phosphatase 73 U/L (45-117) 12/16/19 07:04 Total Creatine Kinase 44 U/L (39-308) 12/15/19 21:04 Troponin I 0.036 ng/ml (0-0.045) 12/16/19 07:04 NT-Pro-B Natriuret Pep 67294 pg/ml (0-1800) H 12/15/19 21:04 Total Protein 6.5 gm/dl (6.4-8.2) 12/16/19 07:04 Albumin 3.3 gm/dl (3.4-5.0) L 12/16/19 07:04 Globulin 3.2 gm/dl (2.5-4.0) 12/16/19 07:04 Albumin/Globulin Ratio 1.0 (0.9-2) 12/16/19 07:04 Prostate Specific Ag 331.000 ng/ml (0-4) H 12/16/19 07:04 TSH 3.810 uIu/ml (0.300-4.500) 12/15/19 21:04 Urine Color Yellow 12/15/19 23:22 Urine Appearance Clear (Clear) 12/15/19 23:22 Urine pH 7.0 (4.5-7.5) 12/15/19 23:22 Ur Specific [place] > 1.045 (1.000-1.030) H 12/15/19 23:22 Urine Protein Negative (Negative) 12/15/19 23:22 Urine Glucose (UA) Negative (Negative) 12/15/19 23:22 Urine Ketones Negative (Negative) 12/15/19 23:22 Urine Blood 1+ (Negative) H 12/15/19 23:22 Urine Nitrite Negative (Negative) 12/15/19 23:22 Urine Bilirubin Negative (Negative) 12/15/19 23: Urine Urobilinogen Positive (Negative) H 12/15/19 23:22 Ur Leukocyte Esterase Negative (Negative) 12/15/19 23:22 Urine WBC (Auto) 1-5 /hpf (0-5) 12/15/19 23: Urine RBC (Auto) 10-30 /hpf (0-4) H 12/15/19 23: U Hyaline Cast (Auto) 1-5 /lpf (0-5) 12/15/19 23: U Epithel Cells (Auto) 0-5 /lpf (0-5) 12/15/19 23:22 Urine Bacteria (Auto) Negative (Negative) 12/15/19 23:22 Diagnostic Findings Echocardiogram 08/05/2019 The left ventricular cavity size is mildly enlarged. The LV wall thickness is normal. There is severe diffuse left ventricular hypokinesis. The qualitative LV ejection fraction is 25-29% (severely reduced). The left ventricular diastolic function is mildly abnormal (grade I). Mild aortic valve regurgitation is present. Mild secondary mitral regurgitation is present. Mild tricuspid regurgitation is present. Moderate pulmonary hypertension is present. Echocardiogram 12/16/2019 similar to above findings with minimal change
[2019-12-16 13:58] LABS: Hematocrit (blood only) 39.7 % (42-52); Hemoglobin 13.7 g/dL (14.0-18.0)
--- NOTE | 2019-12-16 14:28 | Urology Consultation ---
Date of Consultation December 16, 2019 Assessment & Plan (1) Elevated PSA: Discussed at length with patient. Patient likely has prostate cancer with PSA over 300 and possible lesions within the pelvis. Discussed different options for work-up. Discussed other interventions. Discussed management options. Patient has multiple chronic other medical issues. Does have some compliance issues. Does have a family history of prostate cancer. Patient is from the [facility] and has some transportation concerns would like to try to make follow-up in their if possible. Patient will need formal work-up with biopsy. May need to consider intervention with hormones. Discussed these options patient would like to consider for now. We will plan to follow-up as an outpatient and discuss these further. We will plan to likely discussed biopsy further at that time. Will likely need to proceed at some point with intervention. Discussed possible lesions of pelvis. Patient's pain and discomfort currently is all related to back issues. Denies major pelvic discomfort or pain. We will plan to follow. Patient may be discharged today if so we will need to set up outpatient follow-up. History of Present Illness Attending Physician: Kitty Escobar MD History of Present Illness Patient admitted with multiple medical issues and new severe worsening back ingrid n. During work-up patient found to have a PSA of over 300. Patient states at some point he had been told he probably has prostate cancer but never had full work-up. Does have some compliance issues in the past. Patient has significant heart and respiratory issues. Patient is currently being monitored closely. Patient has not had formal work-up. Does have significant lower urinary tract symptoms. Also has considerable back pain which is a chronic issue but has an acute exacerbation. Patient found to have multiple areas of degeneration and bulging disc on imaging. Found to have possibly small lesions within the pelvis. These are suspicious with elevated PSA. No other major issues. Does have a family history of prostate cancer. Allergies Allergy/AdvReac Type Severity Reaction Status Date / Time prednisone Allergy Severe SWELLING, Verified 12/15/19 21:02 TACHYCARDIA, RENAL FAILURE Home Medications Home Medications Medication Instructions Recorded Confirmed Type Breo Ellipta 1 inh INHALATION QDL 09/28/18 12/15/19 History albuterol sulfate [Ventolin HFA] 2 puff INHALATION Q4 PRN 09/28/18 12/15/19 History atorvastatin 10 mg PO QPM 09/28/18 12/15/19 History carvedilol 3.125 mg PO BID 09/28/18 12/15/19 History warfarin See Rx Instructions .ROUTE .COMPLEX 09/28/18 12/15/19 History tiotropium bromide 2.5 2 puffs INH DAILY 09/19/19 12/15/19 History mcg/actuation mist for inhalation furosemide 40 mg tablet 40 mg PO 4XWK 12/05/19 12/15/19 History Patient History Medical History Anemia Atrial fibrillation Chronic obstructive pulmonary disease inhaler prn/daily--ordered 2L N/C continuous, pt refuses to wear Congestive heart failure on coumadin Dementia Hyperlipidemia Hypertension On anticoagulant therapy Severe chronic obstructive pulmonary disease Surgical History History of bilateral cataract extraction History of cardiac cath 2012--[facility], no obstructive disease History of tonsillectomy History of tooth extraction wisdom teeth Hx of vasectomy Family History Mother Family hx of colon cancer Social History Preferred Language: [place] Communication Ability: Effective Flight Service Agent Required: No Beliefs That Will Affect Care: None Current Living Situation: Spouse and Family Other Information That Helps Us Care for You: No Feels Safe at Home: Yes Safety Concerns: Feels Safe At This Time Smoking Status: Former smoker Tobacco Type: cigarettes and smokeless tobacco ; Do You Dip or Chew Tobacco: Yes ; Second Hand Exposure: No ; Hx Alcohol Use: No Hx Substance Use: No Seatbelt Use: always Review of Systems Review of Systems: All systems reviewed & are unremarkable except as noted in HPI & below Physical Exam Physical Exam: General: Alert in no acute distress. Cachectic. On O2 for chronic respiratory issues. Some flight of ideas. HEENT: Normocephalic Atraumatic. Inspection normal. Cranial Nerves 2-12 Grossly intact. Normal inspection of face. Normal inspection of neck. Psychologic: Normal affect. Respiratory: Chronic respiratory issues at baseline. On O2. Via nasal cannula Cardiovascular: No tachycardia Skin: [place] and Dry. No rashes or visible lesions. Extremities/Lymphatics: No edema Abdomen: Soft Non-distended. No rebound or guarding. Results & Data Vital Signs (Past 12 Hours) Vital Signs Temp Pulse Pulse Resp BP Pulse Ox 12/16/19 11:21 36.7 C 75 20 129/74 96 12/16/19 06:53 36.6 C 93 H 20 129/78 96 12/16/19 03:45 36.5 C 93 H 22 137/81 91 PG Care Time/CCT Total # of Minutes Spent Total Time Spent with Patient: Total time spent is greater than 50% in coordination of care (as documented) at patient's floor/unit and/or counseling patient:
--- NOTE | 2019-12-16 14:39 | Discharge Summary ---
Date of Service December 16, 2019 Admission HPI Per Admitting Provider Mr. Marcos Domingo is a 79 year old man with a past medical history significant for severe cardiomyopathy and CHF (Last echo showing EF of 25-29%, declined internal cardioverter defibrillator), Paroxysmal Atrial Fibrillation, severe COPD (Patient declined PFT's and other pulmonology workup recommendations on 3-4 L at home). He is notoriously intermittently noncompliant with his home medication per outside records and has repeatedly refused further workup of his medical problems. Patient is here because of his back pain. He has noticed it for about the last 4-6 weeks and finally decided to come in because his forced him to. Pain is located in mid back. He has no other symptoms or concerns at the moment He denies chest pain, shortness of breath, fevers, chills, leg swelling, abdominal pain, change in bowel habits dysuria, any other pain, or anything else. He tells me his breathing is about the same as it usually is and he has no other pain right now. He takes warfarin at home but is not sure of any of his other medicines. He has oxygen at home, but takes it on and off fairly frequently to go to the bathroom or to go walk around outside. If he falls down he tells me he pushes himself back up and keeps going and jokes that that could be where the broken bones come from. On presentation to the ED patient was found to be in atrial fibrillation with RVR with rates into the 150's was given MgSO4 1 gram and rates returned to the 110's. Hemodynamically stable throughout. 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 Patient's father had prostate cancer when he was 74 years old and from it. Principal Diagnosis Back pain, new prostate mass Discharge Exam Vitals noted and within normal limits with the exception of hypoxia, requiring 4 L via nasal cannula. GENERAL: Awake, alert to person, place, and not to time, nontoxic-appearing, in no distress. HENT: Normocephalic, atraumatic. Nasal cannula in place. Mucus membranes appear moist. Poor dentition. EYES: Normal conjunctiva. Sclera non-icteric. EOMI. NECK: Supple. Full range of motion. No JVD. RESPIRATORY: Clear to auscultation. Normal work of breathing. CARDIAC: Irregularly irregular rate and rhythm, 80s. Extremities warm and well perfused. ABDOMEN: Soft, non-distended. No tenderness to palpation in all four quadrants. No rebound or guarding. No masses. Bowel sounds are normal. LOWER EXTREMITIES: Inspection of calves reveal equal size bilaterally. They are non-tender. No edema. No discoloration. NEURO: No gross focal motor deficits noted. Sensation in tact. CN II-XII grossly in tact. . SKIN: Rash not present. No jaundice noted. PSYCH: Appropriate mood and affect. Cooperative. : Lopez draining clear urine which appears faintly red. Exam as done by Ciara Moore MD, Macadam Raker. Discharge Data Allergies Allergy/AdvReac Type Severity Reaction Status Date / Time prednisone Allergy Severe SWELLING, Verified 12/15/19 21:02 TACHYCARDIA, RENAL FAILURE Consultations 12/15/19 23:38 ED Decision to Admit Stat 12/16/19 04:27 Consult Cardiology Routine -Continue home medications Consult Case Management - Discharge Planning Routine Consult Urology Routine -New prostate mass suspicious for prostate cancer. Close follow-up has been ordered. Biopsy to be done in the outpatient setting. Ordered Studies 12/15/19 20:30 CT abd pelvis IV con only Stat -New prostate mass with lesions in the pelvis and thoracic spine. CT cervical spine wo con Stat -Normal CT lumbar spine wo con Stat -Normal CT thoracic spine wo con Stat -New compression fractures at T6 and T7 Hospital Course (1) Severe chronic obstructive pulmonary disease: Patient is a 79 year old male with a PMH significant for severe nonischemic cardiomyopathy, Paroxysmal A fib and COPD, noncompliant , who presents with back pain and was found to have compression fractures in thoracic vertebral bodies, and enlarged heterogenous prostate with an elevated PSA, suspicious for prostate cancer with metastases. New compression fractures in thoracic spine T6 and T7 -Likely secondary to mets, from new prostate mass -CT also showed pre-existing fracture at T12. C-spine and L-spine x-rays normal. -Pain controlled with p.o. Tylenol -Likely will be progressive, defer further management to PCP and urology. Encourage follow-up. New prostate mass, elevated PSA -PSA 331 -As seen on abdomen pelvis CT -Urology consulted, discussed at length with patient (and I updated patient's via phone) likely possible lesions within the pelvis. Will need formal work-up with biopsy. Discussed management options including hormonal treatment. We will plan for follow-up as outpatient to discuss further and will discuss biopsy at that time. -Lopez placed temporarily, did have some hematuria when put on heparin drip. Urine cleared after stopping heparin. post void trial successful. Going home without a Lopez. Known asymptomatic paroxysmal atrial Fibrillation -with brief RVR up to 140s upon admission, now resolved. -Cardizem drip initially ordered however rates returned back to normal and actually converted to normal sinus rhythm without further intervention upon discharge. -Heparin drip discontinued due to hematuria after Lopez placed. No issues with retention. Plan to continue home Coumadin. -Cardiology consulted. Recommend continuing home medications at this time. -Subtherapeutic with INR of 1.4--resume home Coumadin dosing, states he did miss a dose. Is compliant with INR checks. Nonischemic cardiomyopathy -Known severe LV dysfunction and compensated class II-III congestive heart failure patient, has declined defibrillator in the past, follows with [facility] cardiology. -Repeat echo here shows unchanged function. EF remains 20 to 25%, severe global hypokinesis of the left ventricle. No LVH. -No acute issues, continue home regimen. COPD, O2 dependent Patient with COPD, however declined PFT's and other investigations per pulmonology notes On 4L O2 at home currently oxygenating at baseline patient frequently takes off oxygen to walk around outside or to use restroom and frequently falls and has to crawl back or to stand CXR showing no acute changes or pneumonia No acute issues, continue home meds and daily oxygen (2) Cardiomyopathy: (3) Acute respiratory failure with hypoxia and hypercapnia: (4) Atrial fibrillation with RVR: (5) Elevated PSA: (6) Hematuria: Total Time Total Time Spent Total Time Spent (In Minutes): 30 Discharge Plan Discharge Items Patient Disposition: Home - Self-Care Reason For Visit: COMPRESSION FRACTURES, AFIB WITH RVR, Discharge Diagnosis: Compression fractures, A. fib with RVR, elevated PSA Condition on Discharge: Fair Activity: Per Instructions section Bathing: No limitations Driving/Machine Use: No limitations Non-emergency contact: Primary Care Provider, Consulting Systems Engineer and Urologist Call non-emergency contact if: you have any medication questions and your symptoms worsen Follow-up/Referrals: Kanika Daniels MD [Primary Care Provider] - Diet: Heart Healthy Addtl Attending Provider Instructions: You were admitted due to back pain, this was found to be due to compression fractures in your thoracic spine. The CAT scan of your abdomen also showed an enlarged and abnormal prostate, which is suspicious for prostate cancer. The fractures in your spine may be due to metastases, this was why urology was consulted. The urologist Dr. Wheat saw you and would like to see you in his office in order to complete the evaluation of your prostate. He will likely be taking a biopsy. Regarding your heart health, your atrial fibrillation is pretty well controlled on the medications you are currently on. You were seen by Dr. Mi and he recommends you continue your current medications. This includes your Coumadin, your Lasix, and your carvedilol. No new medications were added to your list. Please continue to use your oxygen at home. Please keep your appointment with urology. Please see your primary care provider in the next 5 to 7 days. If you have any worsening symptoms, please call your primary care provider's office. You may experience a little bit of bleeding in your urine, this is to be expected given the Lopez catheter that was in your urethra temporarily. This may also be due to the prostate. Please call the urology office if this continues or if you are concerned. Be well A Teresa Pending Studies at Discharge: No Stand-Alone Forms: [facility], Smoking Cessation Medications and DC Order Prescriptions: Continued Spiriva Respimat 2.5 mcg/actuation mist 2 puffs INH DAILY RF: 0 atorvastatin 10 mg Tablet 10 mg PO QPM RF: 0 carvedilol 3.125 mg Tablet 3.125 mg PO BID RF: 0 warfarin 5 mg Tablet See Rx Instructions .ROUTE .COMPLEX RF: 0 albuterol sulfate [Ventolin HFA] 90 mcg/actuation Hfa Aerosol Inhaler 2 puff INHALATION Q4 PRN (Reason: Shortness Of Breath) RF: 0 Breo Ellipta 200-25 mcg/dose Blister With Device 1 inh INHALATION QDL RF: 0 furosemide 40 mg tablet 40 mg PO [id number] RF: 0 Discharge Orders: Discharge Order (Routine); Ordered 12/16/19 Ordered By: Ciara Moore Admission Data Admit Date/Time: 01/18/20 01:16 Attending Provider: Kitty Escobar Admit Provider: Jose Carlos Valle Primary Care Provider: Kanika Daniels Other Providers: Galo Benitez ; Good Mi ; Alec Wheat Other Interventions: Discharge Summary Assessment (RN) Last Done: 12/16/19 14:42 DC Date/Time DO NOT enter until pt leaves facility: 12/16/19 14:59 Supervising Physician Co-Signing Physician Notes Resident Physician Supervision Note: I independently interviewed and examined the patient and verified the denise history and physical, reviewed labs and image studies, discussed the case with the resident Dr. Moore and agree with the findings and care plan. Resident Activity Tracking Resident Involvement: Resident Care Provided Care Provided: Adult Hospital Medicine
[2019-12-16] MEDS ORDERED: ATORVASTATIN 10 MG TAB PO SCH (21:00)
[2019-12-18] MEDS ORDERED: FUROSEMIDE 40 MG TAB PO SCH (09:00)
== END 2019-12-16 14:59 | disposition home or self-care (01) | DRG 542 ==
LOC: ED 20:00 → SUATTDRO 12-16 01:16 → 2S 12-16 01:16 → INTOOBSV 12-16 01:16 → 2S 12-16 03:15

== ENCOUNTER 2020-07-08 13:33 | Inpatient (IN) ==
[2020-07-08] MEDS ORDERED: SODIUM CHLORIDE 0.9% 1000ML 1,000 ML IV SCH ×2 (14:45→15:45)
[2020-07-08] MEDS ORDERED: VANCOMYCIN HCL 1,000 MG in SODIUM CHLORIDE 0.9% 500 ML IV ONE (15:00)
[2020-07-08] MEDS ORDERED: VANCOMYCIN CONSULT ACTIVE PRN ×2 (15:00→19:20)
[2020-07-08] MEDS ORDERED: CEFEPIME 2,000 MG/20 ML VIAL IV STA (15:00)
--- NOTE | 2020-07-08 15:13 | XRay Report ---
XR chest 1V portable HISTORY: SEPSIS COMPARISON: Chest 04/27/2020 FINDINGS: The cardiac silhouette is mildly enlarged. This has increased in size. The lungs are hypere xpanded with apical predominant emphysematous changes. No pneumothorax. Small bilateral pleural effus ions. No pulmonary edema. Right lower lobe density which may represent the layering pleural fluid. Mu ltiple right lower rib fractures. IMPRESSION: 1. Increase in size in the cardiac silhouette which could be due to cardiomegaly or a pericardial eff usion. 2. Bilateral pleural effusions, right greater than left. The hazy density within the right lung base favors a layering pleural fluid. Right basilar consolidation could also have a similar appearance. 3. Multiple acute right lower rib fractures. No pneumothorax. ACT 112: Negative or not required by law. Electronically signed by: Yrn Novoa M.D. 07/08/2020 3:12 PM
--- NOTE | 2020-07-08 15:15 | Emergency Department Note ---
Impression & Plan Atrial fibrillation with rapid ventricular response, Acute hypotension, Hypoxia ED Provider Note INFORMANT: [Patient] patient's ED PROVIDER(S): Damian Puente MD CHIEF COMPLAINT: Palpitations PLAN: Disposition: Admitted Condition: Guarded MEDICAL DECISION MAKING: Upon presentation the patient was found to have tachycardia and hypotension. He clinically appeared dry on examination. There was concern initially for sepsis as well. He had blood cultures, lactate, blood work performed. The patient was started on fluid resuscitation. His CBC revealed a mild anemia with a left shift. Chemistry panel revealed dehydration. His INR was therapeutic at 2.2. The patient lactate was significantly elevated at 4.0. Twelve-lead ECG revealed A. fib with rapid ventricular response and an old left bundle branch block. The patient was started empirically on cefepime and vancomycin. On reassessment his vital signs did improve. His tachycardia resolved. Clinically the patient looked better and was more alert. Urinalysis was still pending. His chest x- ray did reveal some concerns for infiltrative change in the right base along with effusion. I discussed further management in the hospital with the patient 's and she was in agreement. [facility] The patient was evaluated in the ER for further management. Triage Nursing notes reviewed and agree them. [Additional history obtained from] patient's [Prior medical records reviewed] patient was recently discharged from the [facility] with dehydration, A. fib, and metastatic prostate cancer. He was given instructions for sepsis however no definitive diagnosis of sepsis was noted on discharge summary. Vital Signs: reviewed and remarkable as noted above Differential diagnosis: Sepsis, UTI, pneumonia, metabolic, electrolyte abnormalities, cardiac sources, intracerebral event, toxicologic, neurologic, as well as other pathologies. Diagnostics interpreted by me: ECG: Twelve-lead ECG reveals an A. fib with rapid ventricular response at 130 bpm. There is a left bundle branch block as well as left axis deviation. No ST elevation. When compared to prior the bundle branch block is old as well as the atrial fibrillation. Cardiac Monitoring: Cardiac monitoring ordered by me: The patient was placed on continuous cardiac monitoring and observed. It revealed atrial fibrillation at 99 beats per minute without ectopy or evidence of dysrhythmia. Imaging studies: Chest x-ray concerning for right sided effusion as well as infiltrative change. Consultation(s): [facility] service, . HPI: The patient is a 80 year old male who presents to the Emergency Room with complaints of palpitations. This started 5 days ago and is persisting. The patient also notes the following associated symptoms, SOB, cough, weakness, poor appetite. The patient has recently been admitted to [facility] and was diagnosed with sepsis and dehydration. states that she was told he did not have sepsis after all. Discharged 5 days ago per . Current pain is rated as 0/10. Pt denies LOC, headache, fevers, chills, diaphoresis, visual changes, neck pain, chest pain, nausea, vomiting, abdominal pain, back pain, melena, hematochezia, urinary symptoms, numbness, lymphadenopathy, rash, or other complaints. ROS: See above HPI for pertinent positives & negatives. A total of [10] systems reviewed and were otherwise negative. PAST MEDICAL HISTORY:[See Below] afib PAST SURGICAL HISTORY:[See Below] FAMILY HISTORY:[See Below] SOCIAL HISTORY:[See Below] HOME MEDICATIONS:[See Below] ALLERGIES:[See Below] VITALS:[See Below] PHYSICAL EXAMINATION: GENERAL: Awake, tired-appearing, in no distress HENT: Normocephalic, atraumatic. Oropharynx with dry mucous membranes EYES: Normal conjunctiva. Sclera non-icteric. NECK: Inspection normal. Non-tender. Supple. No nuchal rigidity. FROM. No masses. RESPIRATORY: Clear to auscultation. No wheezes. No rales. Normal respiratory effort. CARDIAC: Tachycardic rate. Irregular rhythm. No murmurs. No rubs. Extremities warm and well perfused. Pulses equal. No JVD. GI: Soft, non-distended. No tenderness to palpation. No rebound or guarding. No masses. RECTAL: Deferred. MUSCULOSKELETAL: Atraumatic. Chest examination reveals no tenderness. The back is symmetrical on inspection without obvious abnormality. There is no CVA tenderness to palpation. No joint edema. LOWER EXTREMITIES: Calves are equal size bilaterally and non-tender. +1 edema. Ecchymotic discoloration, medial right thigh. NEURO: Normal sensorium. No sensory or motor deficits noted. SKIN: No rash or jaundice noted. ED COURSE: [Critical Care:] I have personally spent greater than 33 minutes of critical care time in the direct management of this patient. This includes bedside care, interpretation of diagnostic studies, and testing, discussion with consultants, patient, and family members, and other required patient management activities. These minutes are in excess of all separately billable procedures. 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 Feels Safe at Home: Yes Safety Concerns: Feels Safe At This Time caffeine: Yes (4-5 cups/day) during the past year weight has: remained stable Seatbelt Use: always Allergies Allergies Allergy/AdvReac Type Severity Reaction Status Date / Time prednisone Allergy Severe SWELLING, Verified 07/08/20 15:45 TACHYCARDIA, RENAL FAILURE Home Meds Home Medications Medication Instructions Recorded Confirmed albuterol sulfate [Ventolin HFA] 2 puff INHALATION Q4 PRN 09/28/18 07/08/20 atorvastatin 10 mg PO QPM 09/28/18 07/08/20 warfarin 5 mg PO Q2D 09/28/18 07/08/20 tiotropium bromide 2.5 2 puffs INH DAILY 09/19/19 07/08/20 mcg/actuation mist for inhalation albuterol sulfate 1.25 mg CONTINUOUS NEBULIZATION 07/08/20 07/08/20 QID PRN levothyroxine 25 mcg PO .DAILY/UD 07/08/20 07/08/20 metoprolol succinate 50 mg PO DAILY 07/08/20 07/08/20 tramadol 50 mg PO TID 07/08/20 07/08/20 warfarin 2.5 mg PO Q2D 07/08/20 07/08/20 Previous Rx's Medication Instructions Recorded bicalutamide 50 mg tablet 50 mg PO DAILY #30 tab 12/25/19 fluticasone furoate 200 1 inh INHALATION QDL #1 inhaler 03/29/20 mcg-vilanterol 25 mcg/dose inhalation powder Results & Data (ED) Vital Signs Vital Signs - 24 hr 07/08/20 14:03 07/08/20 14:27 07/08/20 14:30 Pulse Rate 134 H 121 H 117 H Pulse Rate [Right Finger] Pulse Rate from SpO2 Sensor 139 H Respiratory Rate 24 23 16 Respiratory Effort / Characteristics Non-Labored Respiratory Depth Normal Respiratory Pattern Blood Pressure 89/65 L Blood Pressure [Right Arm] Blood Pressure Mean 73 Blood Pressure Mean [Right Arm] Blood Pressure Position [Right Arm] Pulse Oximetry 96 95 Oxygen Delivery Method Nasal Cannula Oxygen Flow Rate 4 Sepsis Recent Fever Within 48 Hours No Sepsis New/Unexplained Change in Mental Status No Sepsis Action Taken by Nursing Physician Notified 07/08/20 14:39 07/08/20 14:41 07/08/20 14:45 Pulse Rate 117 H 111 H Pulse Rate [Right Finger] Pulse Rate from SpO2 Sensor 114 H 114 H Respiratory Rate 38 H Respiratory Effort / Characteristics Labored Respiratory Depth Respiratory Pattern Blood Pressure 82/65 L Blood Pressure [Right Arm] Blood Pressure Mean 74 Blood Pressure Mean [Right Arm] Blood Pressure Position [Right Arm] Pulse Oximetry 91 97 Oxygen Delivery Method Room Air Oxygen Flow Rate Sepsis Recent Fever Within 48 Hours Sepsis New/Unexplained Change in Mental Status Sepsis Action Taken by Nursing 07/08/20 14:50 07/08/20 14:59 07/08/20 15:00 Pulse Rate 107 H 103 H Pulse Rate [Right Finger] 105 H Pulse Rate from SpO2 Sensor 102 H 111 H Respiratory Rate 12 28 H Respiratory Effort / Characteristics Spontaneous Respiratory Depth Shallow Respiratory Pattern Rapid/Shallow Blood Pressure Blood Pressure [Right Arm] 82/65 L Blood Pressure Mean Blood Pressure Mean [Right Arm] 70 Blood Pressure Position [Right Arm] Lying Pulse Oximetry 99 88 L Oxygen Delivery Method Nasal Cannula Nasal Cannula Oxygen Flow Rate 4 6 Sepsis Recent Fever Within 48 Hours Sepsis New/Unexplained Change in Mental Status Sepsis Action Taken by Nursing 07/08/20 15:01 07/08/20 15:10 07/08/20 15:16 Pulse Rate 107 H Pulse Rate [Right Finger] Pulse Rate from SpO2 Sensor 114 H Respiratory Rate 14 Respiratory Effort / Characteristics Short of Breath Respiratory Depth Respiratory Pattern Irregular Blood Pressure Blood Pressure [Right Arm] Blood Pressure Mean 81 Blood Pressure Mean [Right Arm] Blood Pressure Position [Right Arm] Pulse Oximetry 100 Oxygen Delivery Method Oxygen Flow Rate Sepsis Recent Fever Within 48 Hours Sepsis New/Unexplained Change in Mental Status Sepsis Action Taken by Nursing 07/08/20 15:20 07/08/20 15:30 07/08/20 15:31 Pulse Rate 100 H 105 H 109 H Pulse Rate [Right Finger] Pulse Rate from SpO2 Sensor 99 H 106 H 110 H Respiratory Rate Respiratory Effort / Characteristics Respiratory Depth Respiratory Pattern Blood Pressure 105/75 Blood Pressure [Right Arm] Blood Pressure Mean 87 Blood Pressure Mean [Right Arm] Blood Pressure Position [Right Arm] Pulse Oximetry 100 100 100 Oxygen Delivery Method Oxygen Flow Rate Sepsis Recent Fever Within 48 Hours Sepsis New/Unexplained Change in Mental Status Sepsis Action Taken by Nursing 07/08/20 15:40 07/08/20 15:50 07/08/20 16:00 Pulse Rate 117 H 94 H 94 H Pulse Rate [Right Finger] Pulse Rate from SpO2 Sensor 105 H 94 H 100 H Respiratory Rate 12 Respiratory Effort / Characteristics Respiratory Depth Respiratory Pattern Blood Pressure 124/83 Blood Pressure [Right Arm] Blood Pressure Mean 88 Blood Pressure Mean [Right Arm] Blood Pressure Position [Right Arm] Pulse Oximetry 100 99 97 Oxygen Delivery Method Oxygen Flow Rate Sepsis Recent Fever Within 48 Hours Sepsis New/Unexplained Change in Mental Status Sepsis Action Taken by Nursing 07/08/20 16:10 07/08/20 16:20 07/08/20 16:30 Pulse Rate 93 H 96 H 98 H Pulse Rate [Right Finger] Pulse Rate from SpO2 Sensor 90 90 83 Respiratory Rate Respiratory Effort / Characteristics Respiratory Depth Respiratory Pattern Blood Pressure 102/79 Blood Pressure [Right Arm] Blood Pressure Mean 85 Blood Pressure Mean [Right Arm] Blood Pressure Position [Right Arm] Pulse Oximetry 96 99 93 Oxygen Delivery Method Oxygen Flow Rate Sepsis Recent Fever Within 48 Hours Sepsis New/Unexplained Change in Mental Status Sepsis Action Taken by Nursing 07/08/20 16:40 07/08/20 16:50 07/08/20 17:00 Pulse Rate 86 96 H 89 Pulse Rate [Right Finger] Pulse Rate from SpO2 Sensor Respiratory Rate Respiratory Effort / Characteristics Respiratory Depth Respiratory Pattern Blood Pressure Blood Pressure [Right Arm] Blood Pressure Mean Blood Pressure Mean [Right Arm] Blood Pressure Position [Right Arm] Pulse Oximetry Oxygen Delivery Method Oxygen Flow Rate Sepsis Recent Fever Within 48 Hours Sepsis New/Unexplained Change in Mental Status Sepsis Action Taken by Nursing 07/08/20 17:01 07/08/20 17:10 07/08/20 17:20 Pulse Rate 94 H 90 96 H Pulse Rate [Right Finger] Pulse Rate from SpO2 Sensor 87 90 Respiratory Rate 18 Respiratory Effort / Characteristics Respiratory Depth Respiratory Pattern Blood Pressure 116/74 Blood Pressure [Right Arm] Blood Pressure Mean 97 Blood Pressure Mean [Right Arm] Blood Pressure Position [Right Arm] Pulse Oximetry 94 99 Oxygen Delivery Method Oxygen Flow Rate Sepsis Recent Fever Within 48 Hours Sepsis New/Unexplained Change in Mental Status Sepsis Action Taken by Nursing 07/08/20 17:30 07/08/20 17:40 07/08/20 17:50 Pulse Rate 99 H 102 H 104 H Pulse Rate [Right Finger] Pulse Rate from SpO2 Sensor 95 H 97 H 99 H Respiratory Rate 15 Respiratory Effort / Characteristics Respiratory Depth Respiratory Pattern Blood Pressure 117/97 Blood Pressure [Right Arm] Blood Pressure Mean 101 Blood Pressure Mean [Right Arm] Blood Pressure Position [Right Arm] Pulse Oximetry 97 98 100 Oxygen Delivery Method Oxygen Flow Rate Sepsis Recent Fever Within 48 Hours Sepsis New/Unexplained Change in Mental Status Sepsis Action Taken by Nursing 07/08/20 18:00 Pulse Rate 101 H Pulse Rate [Right Finger] Pulse Rate from SpO2 Sensor 97 H Respiratory Rate 9 L Respiratory Effort / Characteristics Respiratory Depth Respiratory Pattern Blood Pressure Blood Pressure [Right Arm] Blood Pressure Mean Blood Pressure Mean [Right Arm] Blood Pressure Position [Right Arm] Pulse Oximetry 96 Oxygen Delivery Method Oxygen Flow Rate Sepsis Recent Fever Within 48 Hours Sepsis New/Unexplained Change in Mental Status Sepsis Action Taken by Nursing Laboratory Data Result diagrams: 07/08/20 15:23 07/08/20 15:23 Lab Results 07/08/20 07/08/20 07/08/20 Range/Units 15:23 15:23 15:23 WBC 9.98 (4.8-10.8) K/uL RBC 2.81 L (4.7-6.1) M/uL Hgb 11.2 L (14.0-18.0) g/dL Hct 33.8 L (42-52) % MCV 120.3 H (80-100) fL MCH 39.9 H (25-34) pg MCHC 33.1 (32-36) g/dL RDW Std Deviation 105.4 H (36.4-46.3) fL RDW Coeff of Yasmine 23.5 H (11.5-14.5) % Plt Count 180 (130-400) K/uL MPV 12.5 H (7.4-10.4) fL Absolute Nucleated RBC 0.21 H (0-0) K/uL Nucleated RBC % (auto) 2.1 % Neutrophils % (Manual) 91.4 % Lymphocytes % (Manual) 2.6 % Monocytes % (Manual) 4.3 % Myelocytes % (Man) 1.7 % Neutrophils # (Manual) 9.12 H (1.4-6.5) K/uL Total Absolute Neuts 9.12 H (1.4-6.5) K/uL Lymphocytes # (Manual) 0.26 L (1.2-3.4) K/uL Total Abs Lymphocytes 0.26 L (1.2-3.4) K/uL Monocytes # (Manual) 0.43 (0.11-0.59) K/uL Myelocytes # (Manual) 0.17 H (0-0) K/uL Basophilic Stippling 1+ Anisocytosis Present Macrocytosis Present PT 21.9 H (9.0-12.0) Seconds INR 2.2 H (0.9-1.1) APTT 28.4 (21.0-31.0) Seconds PTT Ratio 1.0 Sodium (136-145) mmol/L Potassium (3.5-5.1) mmol/L Chloride (98-107) mmol/L Carbon Dioxide (21-32) mmol/L Anion Gap (3-11) BUN (7-18) mg/dl Creatinine (0.6-1.4) mg/dl Est Cr Clr Drug Dosing ml/min Est GFR ( Amer) Est GFR (Non-Af Amer) BUN/Creatinine Ratio (10-20) Glucose (70-99) mg/dl Lactate (0.4-2.0) mmol/L Calcium (8.5-10.1) mg/dl Magnesium (1.8-2.4) mg/dl Total Bilirubin (0.2-1) mg/dl AST (15-37) U/L ALT (12-78) U/L Alkaline Phosphatase (45-117) U/L Troponin I (0-0.045) ng/ml Total Protein (6.4-8.2) gm/dl Albumin (3.4-5.0) gm/dl Globulin (2.5-4.0) gm/dl Albumin/Globulin Ratio (0.9-2) Procalcitonin 0.12 (0-0.5) ng/ml 07/08/20 07/08/20 07/08/20 Range/Units 15:23 15:23 17:31 WBC (4.8-10.8) K/uL RBC (4.7-6.1) M/uL Hgb (14.0-18.0) g/dL Hct (42-52) % MCV (80-100) fL MCH (25-34) pg MCHC (32-36) g/dL RDW Std Deviation (36.4-46.3) fL RDW Coeff of Yasmine (11.5-14.5) % Plt Count (130-400) K/uL MPV (7.4-10.4) fL Absolute Nucleated RBC (0-0) K/uL Nucleated RBC % (auto) % Neutrophils % (Manual) % Lymphocytes % (Manual) % Monocytes % (Manual) % Myelocytes % (Man) % Neutrophils # (Manual) (1.4-6.5) K/uL Total Absolute Neuts (1.4-6.5) K/uL Lymphocytes # (Manual) (1.2-3.4) K/uL Total Abs Lymphocytes (1.2-3.4) K/uL Monocytes # (Manual) (0.11-0.59) K/uL Myelocytes # (Manual) (0-0) K/uL Basophilic Stippling Anisocytosis Macrocytosis PT (9.0-12.0) Seconds INR (0.9-1.1) APTT (21.0-31.0) Seconds PTT Ratio Sodium 135 L (136-145) mmol/L Potassium 5.0 (3.5-5.1) mmol/L Chloride 95 L (98-107) mmol/L Carbon Dioxide 35 H (21-32) mmol/L Anion Gap 5.0 (3-11) BUN 38 H (7-18) mg/dl Creatinine 1.56 H (0.6-1.4) mg/dl Est Cr Clr Drug Dosing 28.9 ml/min Est GFR ( Amer) 48.6 Est GFR (Non-Af Amer) 41.9 BUN/Creatinine Ratio 24.3 H (10-20) Glucose 135 H (70-99) mg/dl Lactate 4.0 H* 1.7 (0.4-2.0) mmol/L Calcium 8.7 (8.5-10.1) mg/dl Magnesium 2.9 H (1.8-2.4) mg/dl Total Bilirubin 1.4 H (0.2-1) mg/dl AST 31 (15-37) U/L ALT 26 (12-78) U/L Alkaline Phosphatase 164 H (45-117) U/L Troponin I 0.019 (0-0.045) ng/ml Total Protein 6.0 L (6.4-8.2) gm/dl Albumin 2.8 L (3.4-5.0) gm/dl Globulin 3.2 (2.5-4.0) gm/dl Albumin/Globulin Ratio 0.9 (0.9-2) Procalcitonin (0-0.5) ng/ml Administered Medications Discontinued Medications Sodium Chloride (Nss 1000ml) 1,000 mls @ 999 mls/hr IV .Q1H1M [facility] Stop: 07/08/20 15:45 Last Infusion: 07/08/20 16:36 Dose: 0 mls/hr Documented by: [id number] Admin: 07/08/20 15:27 Dose: 999 mls/hr Documented by: [id number] Vancomycin HCl 1,000 mg/ (Sodium Chloride) 520 mls @ 200 mls/hr IV NOW ONE Stop: 07/08/20 17:35 Last Infusion: 07/08/20 18:48 Dose: 0 mls/hr Documented by: [id number] Admin: 07/08/20 15:27 Dose: 200 mls/hr Documented by: [id number] Cefepime HCl (Maxipime) 2,000 mg in 20 mls @ 5 mls/min IV NOW STA; Protocol Stop: 07/08/20 15:03 Last Admin: 07/08/20 15:27 Dose: 5 mls/min Documented by: [id number] Sodium Chloride (Nss 1000ml) 620 mls @ 999 mls/hr IV .Q38M [facility] Stop: 08/07/20 15:44 Last Infusion: 07/08/20 16:06 Dose: 0 mls/hr Documented by: [id number] Admin: 07/08/20 15:27 Dose: 999 mls/hr Documented by: [id number] Discharge Plan Visit Data *Final* Discharge Date/Time: 07/08/20 18:42 Chief Complaint: Arrhythmia/Palpitations Stated Complaint: AFIB ED Provider: Damian Puente Discharge Problem: Atrial fibrillation with rapid ventricular response, Acute hypotension, Hypoxia Patient Disposition: Admitted As Inpatient Discharge Instructions Interventions: ED Discharge Assessment Last Done: 07/08/20 18:42
[2020-07-08] MEDS: SODIUM CHLORIDE 0.9% IV SCH (15:27)
[2020-07-08 15:37] LABS: Hematocrit (blood only) 33.8 % (42-52); Hemoglobin 11.2 g/dL (14.0-18.0); Mean Corpuscular Hemoglobin 39.9 pg (25-34); Mean Corpuscular Hgb Conc 33.1 g/dL (32-36); Mean Corpuscular Volume 120.3 fL (80-100); Mean Platelet Volume 12.5 fL (7.4-10.4); Nucleated RBC # (auto) 0.21 K/uL (0-0); Nucleated RBC % (auto) 2.1 %; Platelet Count 180 K/uL (130-400); RDW Coefficient of Variation 23.5 % (11.5-14.5); RDW Standard Deviation 105.4 fL (36.4-46.3); Red Blood Count 2.81 M/uL (4.7-6.1); White Blood Count 9.98 K/uL (4.8-10.8)
[2020-07-08 15:59] LABS: Albumin Level 2.8 gm/dl (3.4-5.0); BUN Creatinine Ratio 24.3 (10-20); Calcium 8.7 mg/dl (8.5-10.1); Creatinine Clr Calc Pharmacy 28.9 ml/min; Est GFR (African American) 48.6; Est GFR (Non-African American) 41.9; Magnesium 2.9 mg/dl (1.8-2.4)
[2020-07-08 16:00] LABS: INR 2.2 (0.9-1.1); Partial Thromboplastin Time 28.4 Seconds (21.0-31.0); Prothrombin Time 21.9 Seconds (9.0-12.0)
[2020-07-08 16:03] LABS: Albumin Globulin Ratio 0.9 (0.9-2); Bilirubin,Total 1.4 mg/dl (0.2-1); Globulin 3.2 gm/dl (2.5-4.0); Troponin I 0.019 ng/ml (0-0.045)
[2020-07-08 16:08] LABS: ALC (manual) 0.26 K/uL (1.2-3.4); ANC (manual) 9.12 K/uL (1.4-6.5); Anisocytosis Present; Basophilic Stippling 1+; Lymphocytes # (manual) 0.26 K/uL (1.2-3.4); Lymphocytes % (manual) 2.6 %; Macrocytosis Present; Monocytes # (manual) 0.43 K/uL (0.11-0.59); Monocytes % (manual) 4.3 %; Myelocytes # (manual) 0.17 K/uL (0-0); Myelocytes % (manual) 1.7 %; Neutrophils # (manual) 9.12 K/uL (1.4-6.5); Neutrophils % (manual) 91.4 %
[2020-07-08] MEDS ORDERED: SODIUM CHLORIDE 0.9% IV SCH (16:45)
--- NOTE | 2020-07-08 18:17 | History & Physical Report ---
Date of Service July 08, 2020 Assessment & Plan (1) Atrial fibrillation with rapid ventricular response: Marcos Domingo is a 80 year old man with metastatic prostate cancer who is here for evaluation of confusion, A fib with RVR and hypotension Sepsis/Elevated lactate Tachycardic, hypotensive elevated lactate Most likely source is pulmonary given recently treated pneumonia Blood and urine cultures pending Will treat with cefepime and vancomycin for now for HCAP will also add atypical coverage with Azithromycin MRSA swab ordered if negative can discontinue vancomycin Given rapid tachycardia and severe CHF elevated lactate could also be secondary to hypotension/hypoperfusion, as heart rate normalized and IV fluid administered lactate normalized Atrial Fibrillation with Rapid Ventricular response Appeared to improved secondary to fluid administration, patients rates now in the low hundreds high nineties At this time no need for further rate control particularly given patient's hypotension on arrival Would recommend metoprolol IV pushes if pressure continues to remain normal and patient becomes unacceptably tachycardic, if unable to tolerate beta crystal patient may require amiodarone Electrolytes already optimized Patient recently started on warfarin, only been on for a few days, unsure of dose was on 2.5 mg and 5 mg on alternating days, INR 2.2 today We will move forward with 5 mg daily and follow routine morning INR's and adjust dose as needed CHF Patient with bilateral pleural effusions, cardiomegaly and pulmonary vascular congestion Will get BNP though may be artifically high given fluid boluses in ED for sepsis hypotension Will need to monitor fluid status very carefully as this patient could very easily become fluid overloaded and develop pulmonary edema if we are too aggressive with fluid resuscitation CRIS likely prerenal Given 1.6 L nss in ED will recheck BMP in am COPD Patient has not been experiencing any hypoxia or shortness of breath per On 4 L O2 at home, will add azithromycin for atypical coverage, Duonebs prn if patient with worsening pulmonary status could consider adding steroids Prostate Cancer Metastatic, to spine and pelvis Being treated with androgen blockade, lupron depot injection q 6 months and bicalutamide daily DVT PPx: Warfarin F/E/N: NPO secondary to acutely altered mental status Dispo: Admit to PCU for cardiac monitoring, IV antibiotics DNR/DNI DNR/DNI (2) Acute hypotension: (3) Hypoxia: (4) Prostate cancer: History of Present Illness Chief Complaint: Altered Mental Status, Falls Primary Care Provider: Kanika Daniels MD Mr. Marcos Domingo is a 80 year old man with PMH significant for Prostate cancer (metastatic to spine and pelvis), CHF (systolic dysfunction, EF of 25-30% has declined ICD), COPD (on Home O2 4L at baseline Declined PFT's in past), Atrial Fibrillation on warfarin rate controlled with metoprolol who presents today for woresning weakness, poor oral intake, and a rapid heart rate. He was twice admitted to [facility] and treated for pneumonia and a fib RVR. He was recently discharged on no antibiotics, but his home health team felt he was still having PNA symptoms and he was started on outpatient antibiotics. He is altered at baseline, but says that he has been more altered of late. History was severely limited by patient's mental status and only being present for a portion of my evaluation. On presentation to ED patient was tachycardic in A fib rvr with rates in the 140's, patient was hypotensive with pressure 89/65, Labwork was significant for some anemia, chronic but continuing to be low with hemoglobin of 11.2, elevated neutrophil count, CRIS with creatinine elevated from normal baseline to 1.56, hypoalbuminemia of 2.8, and normal procalcitonin. imaging significant for chest x ray increased heart size secondary to either worsening cardiomegaly vs pericardial effusion, a well as bilateral pleural effusions. Chest CT showing pleural effusions and hilar lymphadenopathy. Head CT negative Allergies Allergy/AdvReac Type Severity Reaction Status Date / Time prednisone Allergy Severe SWELLING, Verified 07/08/20 15:45 TACHYCARDIA, RENAL FAILURE Home Medications Home Medications Medication Instructions Recorded Confirmed Type albuterol sulfate [Ventolin HFA] 2 puff INHALATION Q4 PRN 09/28/18 07/08/20 History atorvastatin 10 mg PO QPM 09/28/18 07/08/20 History warfarin 5 mg PO Q2D 09/28/18 07/08/20 History tiotropium bromide 2.5 2 puffs INH DAILY 09/19/19 07/08/20 History mcg/actuation mist for inhalation bicalutamide 50 mg tablet 50 mg PO DAILY #30 tab 12/25/19 07/08/20 Rx fluticasone furoate 200 1 inh INHALATION QDL #1 inhaler 05/01/20 08/10/20 Rx mcg-vilanterol 25 mcg/dose inhalation powder albuterol sulfate 1.25 mg CONTINUOUS NEBULIZATION 07/08/20 07/08/20 History QID PRN levothyroxine 25 mcg PO .DAILY/UD 07/08/20 07/08/20 History metoprolol succinate 50 mg PO DAILY 07/08/20 07/08/20 History tramadol 50 mg PO TID 07/08/20 07/08/20 History warfarin 2.5 mg PO Q2D 07/08/20 07/08/20 History Past Med/Surg History Social History Smoking Status: Former smoker Cigarettes Per Day: 1-2 PPD x 40yr;quit 20yrs ago; Second Hand Exposure: No; Hx Alcohol Use: No Hx Substance Use: No Preferred Language: Lao Communication Ability: Effective Visual Impairment: No Limitations Hearing Ability: Normal Linecasting Machine Keyboard Operator Required: No Beliefs That Will Affect Care: None marital status: Current Living Situation: Spouse current occupational status: retired 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 Feels Safe at Home: Yes Safety Concerns: Feels Safe At This Time caffeine: Yes (4-5 cups/day) during the past year weight has: remained stable Seatbelt Use: always Review of Systems Review of Systems: Unobtainable due to cognitive status Physical Exam Constitutional: + ill appearing and + thin; no acute distress and + not appropriately hydrated Eyes: Black eye on right ENMT: external ear and nose normal, oropharynx normal Respiratory: Absent lung sounds bilateral bases, decreased lung sounds throughout, crackles appreciable on left side Cardiovascular: Irregularly irregular rhythm, tachycardic, no murmurs appreciated, peripheral pulses intact and strong Gastrointestinal (Abdomen): normal bowel sounds, soft, nontender, no hepatosplenomegaly Skin: Body covered in bruising bilateral upper extremities, right lower extremity, face and chest. Results & Data Results & Data ([facility]) Vital Signs (Past 12 Hours) Vital Signs Pulse Pulse Resp BP BP Pulse Ox 07/08/20 18:00 101 H 9 L 96 07/08/20 17:50 104 H 100 07/08/20 17:40 102 H 98 07/08/20 17:30 99 H 15 117/97 97 07/08/20 17:20 96 H 99 07/08/20 17:10 90 18 94 07/08/20 17:01 94 H 116/74 07/08/20 17:00 89 07/08/20 16:50 96 H 07/08/20 16:40 86 07/08/20 16:30 98 H 102/79 93 07/08/20 16:20 96 H 99 07/08/20 16:10 93 H 96 07/08/20 16:00 94 H 124/83 97 07/08/20 15:50 94 H 12 99 07/08/20 15:40 117 H 100 07/08/20 15:31 109 H 105/75 100 07/08/20 15:30 105 H 100 07/08/20 15:20 100 H 100 07/08/20 15:10 100 07/08/20 15:01 107 H 14 07/08/20 15:00 103 H 105 H 28 H 82/65 L 07/08/20 14:59 88 L 07/08/20 14:50 107 H 12 99 07/08/20 14:45 38 H 97 07/08/20 14:41 111 H 07/08/20 14:39 117 H 82/65 L 91 07/08/20 14:30 117 H 16 95 07/08/20 14:27 121 H 23 07/08/20 14:03 134 H 24 89/65 L 96 Supervising Physician Co-Signing Physician Notes Attending Attestation and Admission Note: Pt seen/examined, chart reviewed, admission care plan discussed with resident Dr Jose Carlos Valle. I agree with the denise components of his admission documentation. 80yo male with CHRONIC HYPOXIC RESPIRATORY FAILURE on home [place] O2, COPD, stage 4 prostate ca with mets to the bones, chronic systolic CHF, hypothyroidism, a.fib on coumadin - recent hospital stay last week at [facility] for ?sepsis 2nd pneumonia with ultimate discharge to home - presenting with weakness, decreased PO intake, and rapid a.fib. ?pneumonia on chest x-ray upon presentation today - started on IV antibiotics. During my assessment the patient was sleepy, confused, and could not provide me any meaningful information. Of note - he was lying comfortably in bed nearly flat. PMH, PSH, allergies, meds, sochx, famhx - reviewed Vitals - afebrile, o2 sats acceptable, HR low 100s gen - cacechtic, chronically ill-appearing, confused neck - no obvious JVD mouth - MM dry heart - tachy, irregularly irregular lungs - decreased BS bases, no wheeze, no increased work of breathing abd - liver edge palpable, body wall edema?, NT, BS+ ext- mild right thigh edema skin - ecchymoses right medial thigh, bruises arms musculo - passive ROM of both hips and knees does NOT cause pain labs reviewed cxr reviewed ekg reviewed A/P: 1. ?pneumonia - agree with empiric IV abx including gram neg and atypical coverage; defer on MRSA coverage if MRSA FENCE REPAIRMAN swab neg; agree with CT chest 2. rapid a.fib - improving; adjust AV jhon agents; cont coumadin; daily INR 3. chronic systolic CHF - BNP elevated, b/l pleural effusions - but patient clinically volume contracted; agree to hold off on additional diuresis 4. elevated lactate, possible sepsis - 2nd to #1?? follow blood cultures, abx, etc 5. encephalopathy in setting of dementia - baseline MS uncertain; check ammonia, b12, tsh, CT head 6. macrocytosis - significant - check TSH, b12, folate 7. chronic hypoxic resp failure - cont home O2 amount , 4 L continuously 8. COPD - no exacerbation at this time 9. stage 4 prostate ca - mets to bone - liver is palpable - could he have liver mets? consider CT abd/pelvis 10. rib fractures - right - he does have bruises on arms, right thigh - recent fall?? no apparent injury of hips, knees, ankles fortunately no c/o rib pain follow the rib fractures could be PATHOLOGIC from bony prostate mets 11. severe protein calorie malnutrition - 2nd to #8, #9. DNR John Dang MD Resident Activity Tracking Resident Involvement: Resident Care Provided Care Provided: Adult Hospital Medicine
[2020-07-08] MEDS ORDERED: VANCOMYCIN HCL 750 MG in SODIUM CHLORIDE 0.9% 500 ML IV SCH (19:20)
[2020-07-08] MEDS ORDERED: ACETAMINOPHEN 325 MG TAB PO PRN (19:20)
--- NOTE | 2020-07-08 19:54 | CT Scan Report ---
CT head/brain wo con CLINICAL HISTORY: Altered mental status COMPARISON STUDY: 04/27/2020 TECHNIQUE: Axial CT of the brain is performed from the vertex to the skull base. IV contrast was not administered for this examination. A dose lowering technique was utilized adhering to the principles of ALARA. CT DOSE: FINDINGS: The CT apparel manufacture instructor image demonstrates cardiomegaly with bilateral pleural effusions and possible congestive failure. No intra or extra-axial mass lesions are visualized. There is no CT evidence of acute cortical infarc tion. There is no evidence of midline shift. There is no acute hemorrhage. No calvarial fractures ar e visualized. There are patchy white matter hypodensities likely on a small vessel basis. There is no evidence of pathologic ventricular dilatation. There is no evidence of acute sinusitis IMPRESSION: No acute intracranial findings ACT 112: Negative or not required by law. Electronically signed by: Onofre Dong M.D. 07/08/2020 7:53 PM
[2020-07-08] MEDS ORDERED: ALBUTEROL 0.083% NEBU SOLN 3 ML VIAL INH PRN (19:56)
--- NOTE | 2020-07-08 19:58 | CT Scan Report ---
CT chest wo con CLINICAL HISTORY: Pneumonia concern SEPSIS. SUSPECTED PNEUMONIA. COMPARISON STUDY: Chest x-ray dated 07/08/2020 CT DOSE: 908.66 mGy.cm TECHNIQUE: CT of the thorax was performed from the thoracic inlet to the lung bases. Images are revi ewed in the axial, sagittal, and coronal planes. IV contrast was not administered for this examinatio n. A dose lowering technique was utilized adhering to the principles of ALARA. FINDINGS: Thyroid: Imaged portions of the thyroid gland are normal in appearance. Thoracic aorta: The thoracic aorta is normal in course and caliber, noting standard 3 vessel arch magalys ervin. Heart: The heart is enlarged with coronary calcifications. There is no pericardial effusion. Lungs and pleural spaces: There are moderate bilateral pleural effusions. There is moderately severe underlying pulmonary emphysema. There is no lobar consolidation. There are dependent airspace opaciti es which are likely atelectatic. There is equivocal mild septal edema. Mediastinum: There are minimally enlarged mediastinal lymph nodes. Nellie: Hilar nodes are felt to be the upper limits of normal in size. Axilla: There is no evidence of pathologic axillary lymphadenopathy. Upper abdomen: Partially visualized upper abdominal viscera is within normal limits. Skeletal structures: There is generalized body wall edema. There are droplets of intravascular gas, l ikely iatrogenic. No destructive skeletal lesions are visualized is an old lower thoracic compression deformity there are multiple age-indeterminate right-sided rib fractures. IMPRESSION: 1. Moderate bilateral pleural effusions with associated dependent airspace opacities likely atelectat ic 2. Suspected mild septal edema 3. Cardiomegaly and coronary artery calcifications 4. Mildly enlarged mediastinal lymph nodes 5. Multiple age-indeterminate right-sided rib fractures ACT 112: Negative or not required by law. Electronically signed by: Onofre Dong M.D. 07/08/2020 7:57 PM
--- NOTE | 2020-07-08 20:33 | Pharmacy Report ---
Pharmacy Abx Initial Consult - Date of Service July 08, 2020 - Pharmacy Dosing Scope Date of Consult: 07/08/20 Consultation requested by: Dr. Valle Pharmacy is consulted to initiate VANCOMYCIN IV dosing therapy, order appropriate labs and adjust drug dose/frequency. - Subjective The patient is a 80 year old M admitted on 07/08/20 18:20. - Objective Height: 5 ft 4 in Weight: 56.1 kg Vital Signs (Past 12hrs): Vital Signs Temp Pulse Pulse Resp BP BP Pulse Ox 07/08/20 19:03 36.9 C 74 18 105/72 97 07/08/20 18:00 101 H 9 L 96 07/08/20 17:50 104 H 100 07/08/20 17:40 102 H 98 07/08/20 17:30 99 H 15 117/97 97 07/08/20 17:20 96 H 99 07/08/20 17:10 90 18 94 07/08/20 17:01 94 H 116/74 07/08/20 17:00 89 07/08/20 16:50 96 H 07/08/20 16:40 86 07/08/20 16:30 98 H 102/79 93 07/08/20 16:20 96 H 99 07/08/20 16:10 93 H 96 07/08/20 16:00 94 H 124/83 97 07/08/20 15:50 94 H 12 99 07/08/20 15:40 117 H 100 07/08/20 15:31 109 H 105/75 100 07/08/20 15:30 105 H 100 07/08/20 15:20 100 H 100 07/08/20 15:10 100 07/08/20 15:01 107 H 14 07/08/20 15:00 103 H 105 H 28 H 82/65 L 07/08/20 14:59 88 L 07/08/20 14:50 107 H 12 99 07/08/20 14:45 38 H 97 07/08/20 14:41 111 H 07/08/20 14:39 117 H 82/65 L 91 07/08/20 14:30 117 H 16 95 07/08/20 14:27 121 H 23 07/08/20 14:03 134 H 24 89/65 L 96 Lab Results (24hrs): Laboratory Tests (24 Hours) 08/09/1707/08/20 07/08/20 15:23 15:23 15:23 WBC 9.98 Creatinine 1.56 H Est Cr Clr Drug Dosing 28.9 Procalcitonin 0.12 Micro Results: 07/08/20 15:27 Aerobic Blood Culture - Pending Blood Anaerobic Blood Culture - Pending 07/08/20 15:23 Aerobic Blood Culture - Pending Blood Anaerobic Blood Culture - Pending - Assessment & Plan Assessment Plan VANCOMYCIN/CEFEPIME for empiric treatment. Vancomycin IV * Estimated PK Parameters: Vd 0.7 L/kg, Mitchell 0.028 hr-1, t1/2 ~24hr * Loading dose: 1000mg (~18 mg/kg) * Maintenance dose: 750mg IV (~13 mg/kg) every 24 hours * Goal trough level : 15 to 20 mcg/mL * Will order a trough level if therapy is continued past 48 hours. Pharmacy will continue to follow and will adjust dose/frequency as necessary. Thank you.
[2020-07-08] MEDS: TRAMADOL HCL 50 MG TABLET PO SCH (22:21)
[2020-07-08] MEDS: ATORVASTATIN 10 MG TAB PO SCH ×2 (22:21→22:34)
[2020-07-09] MEDS: CEFEPIME 2,000 MG in SYRINGE 7.5 ML IV SCH ×2 (03:31→16:13)
[2020-07-09] MEDS ORDERED: AZITHROMYCIN 500 MG in DEXTROSE 5% 250 ML IV ONE (04:15)
[2020-07-09] MEDS ORDERED: LEVOTHYROXINE SODIUM 25 MCG TABLET PO SCH (06:30)
--- NOTE | 2020-07-09 06:56 | Billing Data ---
Date of Service July 08, 2020 Coding Level of Care Code 71695 Initial Inpt Care Lvl 3
[2020-07-09] MEDS: SODIUM CHLORIDE 0.9% IV SCH ×4 (08:25→08:43)
[2020-07-09] MEDS: TRAMADOL HCL 50 MG TABLET PO SCH (08:40)
[2020-07-09] MEDS: METOPROLOL SUCC 50MG EXT REL TAB PO SCH (08:40)
[2020-07-09] MEDS: BICALUTAMIDE 50 MG TAB PO SCH (08:41)
[2020-07-09] MEDS: UMECLIDINIUM BROMIDE 62.5MCG/BLISTER 7 PUFFS/INHALER INH SCH (08:41)
--- NOTE | 2020-07-09 09:30 | Cardiology Consultation ---
Date of Consultation July 09, 2020 Assessment & Plan (1) Atrial fibrillation with rapid ventricular response: Ventricular rates improved this morning after gentle IV fluids Patient appears clinically dry with likely poor PO intake at home leading to admission hypotension noted on arrival as well. Continue metoprolol as tolerated, if patient is alert enough to take oral medications. (2) Acute and chronic respiratory failure with hypoxia: chronic respiratory failure with supplemental O2 at home B/L pleural effusions noted on xray, but oxygen saturations acceptable on 2 L O2 Clinically patient appears volume depleted. would hold IV diuretics at this time (3) Chronic left ventricular systolic heart failure: History of underlying LBBB and non ischemic cardiomyopathy Case discussed with Dr. Lanier. Patient's baseline mental status is unknown to me. However, he has significantly reduced consciousness this morning to the point, I was concerned he was not breathing/agonal respirations. Verified pulse and he was minimally awakened with sternal rub. Hospitalist notified as well. Confirmed Level 5 DNR/DNI. Palliative care consult recommended. Supervising Physician Co-Signing Physician Notes Supervising Physician Attestation: I have personally performed a history and physical examination on the patient. I agree with the physician records management assistant's findings and plan as documented with the following additions. Subjective: Pt frail, cachectic. Exam: Multiple areas of superficial ecchymosis noted on his arms, forehead Heart rate irregular Data: EKG with AF in the 80s with LBBB. Assessment and Plan: Permanent, AF. Cardiomyopathy, LBBB -Pt with underlying dementia and metastatic prostate CA. -Despite bilateral pleural effusions noted on echocardiogram , agree pt appears intravascularly volume depleted. Holding diuretics. -rates improved with fluids. -Recommend palliative care consultation. Sidney Lanier, DO History of Present Illness Reason for Consultation: Afib RVR; CHF; Weakness/confusion Requesting Physician: ISAIAH Silva hospitalist Attending Physician: Dr. Lanier History of Present Illness Patient is a complex 80 year old male admitted for confusion and weakness. He is unable to provide any significant history. Charts reviewed, including inpatient and outpatient notes. History includes chronic afib, CHF with LVEF 25- 30% per last echo May 2020; metastatic prostate CA with bone METS, chronic oxygen dependent COPD, and underlying dementia. He follows closely with Omid Alcantara PA-C with [facility]. Recent admissions at [facility] after a fall with pelvic fracture, rib fractures, treated for pneumonia. He was then evaluated last week at [place] for recurrent fall with head contusion. Head CT was negative for acute process. On discharge his anticoagulation was stopped on discharge due to frailty and recurrent falls. contacted cardiology clinic and [facility] clinic last week and wished to resume anticoagulation therapy, so Coumadin was resumed per her preference despite risks. He has recently demonstrated signs of hypotension at home and at recent outpatient cardiology visit. Furosemide was subsequently reduced to 40 mg alternating with 20 mg daily. He was admitted to [facility] yesterday with worsening confusion, weakness and poor PO intake per notes. Concerns for pneumonia and possible sepsis with elevated lactic acid. He was noted to be in afib RVR on arrival. Hypotension noted. Given gentle IV fluids with improvement in HR and BP. He has b/l pleural effusions on xray, but appears dry on exam. Upon arrival to patient's room for consultation, he was laying in bed, unresponsive to voice or tactile stimuli, infrequent respirations noted, pulse checked by the undersigned and radial pulse palpated. I went to get nursing staff to check code status. Level 5 verified. Upon return to the room with the nurse we were able to awaken him somewhat with sternal rub. But he quickly returned to his reduced conscious state. No review of systems performed. Allergies Allergy/AdvReac Type Severity Reaction Status Date / Time prednisone Allergy Severe SWELLING, Verified 07/08/20 15:45 TACHYCARDIA, RENAL FAILURE Home Medications Home Medications Medication Instructions Recorded Confirmed Type albuterol sulfate [Ventolin HFA] 2 puff INHALATION Q4 PRN 09/28/18 07/08/20 History atorvastatin 10 mg PO QPM 09/28/18 07/08/20 History warfarin 5 mg PO Q2D 09/28/18 07/08/20 History tiotropium bromide 2.5 2 puffs INH DAILY 09/19/19 07/08/20 History mcg/actuation mist for inhalation bicalutamide 50 mg tablet 50 mg PO DAILY #30 tab 12/25/19 07/08/20 Rx fluticasone furoate 200 1 inh INHALATION QDL #1 inhaler 03/29/20 07/08/20 Rx mcg-vilanterol 25 mcg/dose inhalation powder albuterol sulfate 1.25 mg CONTINUOUS NEBULIZATION 07/08/20 07/08/20 History QID PRN levothyroxine 25 mcg PO .DAILY/UD 07/08/20 07/08/20 History metoprolol succinate 50 mg PO DAILY 07/08/20 07/08/20 History tramadol 50 mg PO TID 07/08/20 07/08/20 History warfarin 2.5 mg PO Q2D 07/08/20 07/08/20 History Patient History Social History Smoking Status: Former smoker Cigarettes Per Day: 1-2 PPD x 40yr;quit 20yrs ago; Second Hand Exposure: No; Hx Alcohol Use: No Hx Substance Use: No Preferred Language: Nepalese Communication Ability: Effective Visual Impairment: No Limitations Hearing Ability: Normal Drafter (Cad) Electrical Required: No Beliefs That Will Affect Care: None marital status: Current Living Situation: Spouse current occupational status: 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 Feels Safe at Home: Yes Safety Concerns: Feels Safe At This Time caffeine: Yes (4-5 cups/day) during the past year weight has: remained stable Seatbelt Use: always Review of Systems Review of Systems: Unobtainable due to cognitive status Physical Exam Constitutional: + ill appearing, + thin, + cachectic and + altered mental status Respiratory: Auscultation: + diminished lung sounds Cardiovascular: Rate/Rhythm: + irregularly irregular Heart Sounds: no murmur Vessels: no JVD Extremities: no edema Gastrointestinal (Abdomen): normal bowel sounds, soft, nontender, no hepatosplenomegaly Psychiatric: Orientation: + not alert and + not oriented x 3 Results & Data ([facility]) Vital Signs (Past 12 Hours) Vital Signs Temp Pulse Pulse Resp BP Pulse Ox 07/09/20 09:06 104 H 07/09/20 08:44 100 07/09/20 07:45 36.4 C L 77 20 93/72 L 07/09/20 03:58 36.4 C L 104 H 18 107/75 99 07/08/20 23:36 36.9 C 89 18 105/69 97 Laboratory Results 07/09/20 07/08/20 07/08/20 Range/Units 10:14 20:11 17:31 WBC (4.8-10.8) K/uL RBC (4.7-6.1) M/uL Hgb (14.0-18.0) g/dL Hct (42-52) % MCV (80-100) fL MCH (25-34) pg MCHC (32-36) g/dL RDW Std Deviation (36.4-46.3) fL RDW Coeff of Yasmine (11.5-14.5) % Plt Count (130-400) K/uL MPV (7.4-10.4) fL Absolute Nucleated RBC (0-0) K/uL Nucleated RBC % (auto) % Neutrophils % (Manual) % Lymphocytes % (Manual) % Monocytes % (Manual) % Myelocytes % (Man) % Neutrophils # (Manual) (1.4-6.5) K/uL Total Absolute Neuts (1.4-6.5) K/uL Lymphocytes # (Manual) (1.2-3.4) K/uL Total Abs Lymphocytes (1.2-3.4) K/uL Monocytes # (Manual) (0.11-0.59) K/uL Myelocytes # (Manual) (0-0) K/uL Basophilic Stippling Anisocytosis Macrocytosis PT (9.0-12.0) Seconds INR (0.9-1.1) APTT (21.0-31.0) Seconds PTT Ratio ABG pH 7.40 (7.35-7.45) ABG pCO2 57 H (35-46) mmHg ABG pO2 87 (80-95) mmHg ABG HCO3 34 H (19-24) mmol/L ABG O2 Saturation 97.0 H (90-95) % ABG Base Excess 7.9 H (-9-1.8) mEq/L Dov Test Pos (Pos) Barometric Pressure 731.0 mm/Hg Oxygen Given 2L Sodium (136-145) mmol/L Potassium (3.5-5.1) mmol/L Chloride (98-107) mmol/L Carbon Dioxide (21-32) mmol/L Anion Gap (3-11) BUN (7-18) mg/dl Creatinine (0.6-1.4) mg/dl Est Cr Clr Drug Dosing ml/min Est GFR ( Amer) Est GFR (Non-Af Amer) BUN/Creatinine Ratio (10-20) Glucose (70-99) mg/dl Lactate 1.7 (0.4-2.0) mmol/L Calcium (8.5-10.1) mg/dl Magnesium (1.8-2.4) mg/dl Total Bilirubin (0.2-1) mg/dl AST (15-37) U/L ALT (12-78) U/L Alkaline Phosphatase (45-117) U/L Troponin I (0-0.045) ng/ml NT-Pro-B Natriuret Pep (0-1800) pg/ml Total Protein (6.4-8.2) gm/dl Albumin (3.4-5.0) gm/dl Globulin (2.5-4.0) gm/dl Albumin/Globulin Ratio (0.9-2) Procalcitonin (0-0.5) ng/ml Nasal Screen MRSA (PCR) Negative (Negative) 07/08/20 07/08/20 07/08/20 Range/Units 15:23 15:23 15:23 WBC (4.8-10.8) K/uL RBC (4.7-6.1) M/uL Hgb (14.0-18.0) g/dL Hct (42-52) % MCV (80-100) fL MCH (25-34) pg MCHC (32-36) g/dL RDW Std Deviation (36.4-46.3) fL RDW Coeff of Yasmine (11.5-14.5) % Plt Count (130-400) K/uL MPV (7.4-10.4) fL Absolute Nucleated RBC (0-0) K/uL Nucleated RBC % (auto) % Neutrophils % (Manual) % Lymphocytes % (Manual) % Monocytes % (Manual) % Myelocytes % (Man) % Neutrophils # (Manual) (1.4-6.5) K/uL Total Absolute Neuts (1.4-6.5) K/uL Lymphocytes # (Manual) (1.2-3.4) K/uL Total Abs Lymphocytes (1.2-3.4) K/uL Monocytes # (Manual) (0.11-0.59) K/uL Myelocytes # (Manual) (0-0) K/uL Basophilic Stippling Anisocytosis Macrocytosis PT (9.0-12.0) Seconds INR (0.9-1.1) APTT (21.0-31.0) Seconds PTT Ratio ABG pH (7.35-7.45) ABG pCO2 (35-46) mmHg ABG pO2 (80-95) mmHg ABG HCO3 (19-24) mmol/L ABG O2 Saturation (90-95) % ABG Base Excess (-9-1.8) mEq/L Dov Test (Pos) Barometric Pressure mm/Hg Oxygen Given Sodium 135 L (136-145) mmol/L Potassium 5.0 (3.5-5.1) mmol/L Chloride 95 L (98-107) mmol/L Carbon Dioxide 35 H (21-32) mmol/L Anion Gap 5.0 (3-11) BUN 38 H (7-18) mg/dl Creatinine 1.56 H (0.6-1.4) mg/dl Est Cr Clr Drug Dosing 28.9 ml/min Est GFR ( Amer) 48.6 Est GFR (Non-Af Amer) 41.9 BUN/Creatinine Ratio 24.3 H (10-20) Glucose 135 H (70-99) mg/dl Lactate 4.0 H* (0.4-2.0) mmol/L Calcium 8.7 (8.5-10.1) mg/dl Magnesium 2.9 H (1.8-2.4) mg/dl Total Bilirubin 1.4 H (0.2-1) mg/dl AST 31 (15-37) U/L ALT 26 (12-78) U/L Alkaline Phosphatase 164 H (45-117) U/L Troponin I 0.019 (0-0.045) ng/ml NT-Pro-B Natriuret Pep > 56417 H (0-1800) pg/ml Total Protein 6.0 L (6.4-8.2) gm/dl Albumin 2.8 L (3.4-5.0) gm/dl Globulin 3.2 (2.5-4.0) gm/dl Albumin/Globulin Ratio 0.9 (0.9-2) Procalcitonin (0-0.5) ng/ml Nasal Screen MRSA (PCR) (Negative) 07/08/20 07/08/20 07/08/20 Range/Units 15:23 15:23 15:23 WBC 9.98 (4.8-10.8) K/uL RBC 2.81 L (4.7-6.1) M/uL Hgb 11.2 L (14.0-18.0) g/dL Hct 33.8 L (42-52) % MCV 120.3 H (80-100) fL MCH 39.9 H (25-34) pg MCHC 33.1 (32-36) g/dL RDW Std Deviation 105.4 H (36.4-46.3) fL RDW Coeff of Yasmine 23.5 H (11.5-14.5) % Plt Count 180 (130-400) K/uL MPV 12.5 H (7.4-10.4) fL Absolute Nucleated RBC 0.21 H (0-0) K/uL Nucleated RBC % (auto) 2.1 % Neutrophils % (Manual) 91.4 % Lymphocytes % (Manual) 2.6 % Monocytes % (Manual) 4.3 % Myelocytes % (Man) 1.7 % Neutrophils # (Manual) 9.12 H (1.4-6.5) K/uL Total Absolute Neuts 9.12 H (1.4-6.5) K/uL Lymphocytes # (Manual) 0.26 L (1.2-3.4) K/uL Total Abs Lymphocytes 0.26 L (1.2-3.4) K/uL Monocytes # (Manual) 0.43 (0.11-0.59) K/uL Myelocytes # (Manual) 0.17 H (0-0) K/uL Basophilic Stippling 1+ Anisocytosis Present Macrocytosis Present PT 21.9 H (9.0-12.0) Seconds INR 2.2 H (0.9-1.1) APTT 28.4 (21.0-31.0) Seconds PTT Ratio 1.0 ABG pH (7.35-7.45) ABG pCO2 (35-46) mmHg ABG pO2 (80-95) mmHg ABG HCO3 (19-24) mmol/L ABG O2 Saturation (90-95) % ABG Base Excess (-9-1.8) mEq/L Dov Test (Pos) Barometric Pressure mm/Hg Oxygen Given Sodium (136-145) mmol/L Potassium (3.5-5.1) mmol/L Chloride (98-107) mmol/L Carbon Dioxide (21-32) mmol/L Anion Gap (3-11) BUN (7-18) mg/dl Creatinine (0.6-1.4) mg/dl Est Cr Clr Drug Dosing ml/min Est GFR ( Amer) Est GFR (Non-Af Amer) BUN/Creatinine Ratio (10-20) Glucose (70-99) mg/dl Lactate (0.4-2.0) mmol/L Calcium (8.5-10.1) mg/dl Magnesium (1.8-2.4) mg/dl Total Bilirubin (0.2-1) mg/dl AST (15-37) U/L ALT (12-78) U/L Alkaline Phosphatase (45-117) U/L Troponin I (0-0.045) ng/ml NT-Pro-B Natriuret Pep (0-1800) pg/ml Total Protein (6.4-8.2) gm/dl Albumin (3.4-5.0) gm/dl Globulin (2.5-4.0) gm/dl Albumin/Globulin Ratio (0.9-2) Procalcitonin 0.12 (0-0.5) ng/ml Nasal Screen MRSA (PCR) (Negative) Diagnostic Findings Telemetry reviewed: Atrial fibrillation with ventricular rates ranging 90-110 EKG reviewed: afib with controlled ventricular rates LBBB No signfiant change from previous Chest xray: IMPRESSION: 1. Moderate bilateral pleural effusions with associated bibasilar opacities that favor atelectasis. 2. Pulmonary vascular congestion. 3. Cardiomegaly. Chest CT report reviewed: IMPRESSION: 1. Moderate bilateral pleural effusions with associated dependent airspace opacities likely atelectatic 2. Suspected mild septal edema 3. Cardiomegaly and coronary artery calcifications 4. Mildly enlarged mediastinal lymph nodes 5. Multiple age-indeterminate right-sided rib fractures Head CT report reviewed IMPRESSION: No acute intracranial findings
--- NOTE | 2020-07-09 09:51 | XRay Report ---
XR chest 1V portable CLINICAL HISTORY: Shortness of breath. Hypoxia. COMPARISON STUDY: Chest radiograph and chest CT July 08, 2020. FINDINGS: There is no pneumothorax. Moderate bilateral pleural effusions and associated bibasilar opa cities persist. There are multiple old left rib fractures. Cardiomegaly is unchanged. Pulmonary vascu lar congestion. IMPRESSION: 1. Moderate bilateral pleural effusions with associated bibasilar opacities that favor atelectasis. 2. Pulmonary vascular congestion. 3. Cardiomegaly. ACT 112: Negative or not required by law. Electronically signed by: Gavino Champagne M.D. 07/09/2020 9:50 AM
--- NOTE | 2020-07-09 09:55 | Hospitalist Progress Note ---
Date of Service July 09, 2020 Assessment & Plan (1) Atrial fibrillation with rapid ventricular response: Marcos Domingo is a 80 year old man with metastatic prostate cancer who is here for evaluation of confusion, A fib with RVR and hypotension Sepsis/Elevated lactate-difficult to say if truly has infection, but could be recurrent pneumonia-perhaps aspiration pneumonia Tachycardic, hypotensive elevated lactate on admission which is now resolved with gentle IV fluid hydration Most likely source is pulmonary given recently treated pneumonia Blood cultures-no growth to date-we will follow UA pending Will continue to treat with cefepime for gram-negative pneumonia and received 1 dose of vancomycin for MRSA pneumonia coverage-now discontinued as MRSA nasal swab was negative -Received atypical coverage with Azithromycin but this is not felt to be necessary -Speech consultation to assess for aspiration Bradypnea--> suspect possible central sleep apnea, could be related to hypothyroidism and/or severe dementia Sleeps excessively as per for most of the day Pulse ox is acceptable on 2 L nasal cannula -Treating hypothyroidism -ABG performed which shows some mild chronic CO2 retention -He is known to frequently take his oxygen off, unclear if he would tolerate BiPAP while sleeping Severe dementia-patient has been rapidly declining in the last 6 months, but has had a diagnosis of dementia for 18 months. He does converse at times but is only awake usually from 2 PM to 7 or 8 PM each day. reports he at times has some "lucid moments." Has to be reminded to eat and drink Does have moments of significant agitation and violent outbursts Question if has Lewy body dementia -Palliative care consultation Atrial Fibrillation with Rapid Ventricular response Appears to improved secondary to initial gentle fluid administration, patients rates now in the 90s At this time no need for further rate control particularly given patient's hypotension on arrival Patient recently started on warfarin, only been on for a few days as was recently discontinued from Eliquis for excessive bruising; unsure of dose was on 2.5 mg and 5 mg on alternating days, INR today is 2.1 -Continue warfarin 5 mg daily and follow routine morning INR's and adjust dose as needed -Appreciate cardiology consultation -Continue telemetry monitoring Acute on chronic systolic CHF Patient with bilateral pleural effusions, cardiomegaly and pulmonary vascular congestion. BNP greater than 35,000. Chest x-ray today appears slightly worse. He is intravascularly volume depleted secondary to hypoalbuminemia and further IV diuretics will likely not be beneficial -Consider IV albumin but would only be temporary fix Overall very poor prognosis and multiple comorbidities-palliative care consultation discussed with and is requested -No further IV fluids -Does not appear to be on diuretics on home medication list at this time-will diurese if becomes symptomatic from a pulmonary standpoint CRIS-creatinine 1.5 on admission now down to 1.3 likely prerenal from intravascular volume depletion, poor p.o. intake Given 1.6 L nss in ED -Follow BMP COPD Patient with chronic hypoxia with some acute component here as per at home oxygen levels were dropping at times He is not dyspneic On 4 L O2 at home Susie prn Prostate Cancer Metastatic, to spine and pelvis Being treated with androgen blockade, lupron depot injection q 6 months and bicalutamide daily Hypothyroidism-TSH is 11 here and reports he was recently started on levothyroxine 25 mcg daily as an outpatient and was to increase dose to 50 mcg daily on 07/12 Given that he likely has got edema as he has anasarca, we will give IV levothyroxine 25 mcg once daily especially in the setting of profound lethargy DVT PPx: Warfarin F/E/N: Okay to advance diet if awake enough to eat Dispo: Continued stay on PCU DNR/DNI (2) Acute hypotension: (3) Hypoxia: (4) Prostate cancer: (5) Chronic left ventricular systolic heart failure: (6) Dementia: (7) Hyperlipidemia: (8) Acute and chronic respiratory failure with hypoxia: (9) Chronic obstructive pulmonary disease: (10) Inguinal hernia: (11) LBBB (left bundle branch block): (12) Hypothyroidism: (13) DVT prophylaxis: Admission and Anticipated Discharge Date Admission Date: July 08, 2020 Subjective Patient was unresponsive when I first saw him this morning. The nurses reported that he was having agonal respirations. I used a sternal rub and loud verbal stimulus and had difficulty finding his carotid pulse. He was breathing but it was very slow. Then after a few more seconds, he finally opened his eyes and responded. He would not answer any my questions and fell back asleep after a few seconds. His on the phone confirmed that he is very lethargic through the entire morning usually sleeps till 2 PM. She reports that he sometimes appears to be when she finds him in his bed in the mornings at home. She has great difficulty getting him to wake up to take his morning meds and to eat a yogurt for breakfast then he goes back to sleep. She reports he has had a progressive decline in his dementia much worse in the last 6 months. She tries to get him to drink 2 boost per day, but he refuses to eat a lot of food. When I saw him again later in the afternoon with his at the bedside, he did wake up and yelled obscenities at me for me to get out of the room and then he fell back asleep. Telemetry with atrial fibrillation with rates now controlled in the s I discussed the case with media consultant and with palliative care. The patient's is interested in a palliative care consultation. Review of Systems Review of Systems: Unobtainable due to cognitive status and Unobtainable due to reduced consciousness Physical Exam Constitutional: + cachectic and + lethargic Eyes: PERRL, conjunctivae normal, anicteric sclerae ENMT: Mouth: + oral mucosal abnormality (Dry mucous membranes) Neck: trachea midline, no thyromegaly Respiratory: + abnormal respiratory effort (bradypneic) Auscultation: + diminished lung sounds (At the bases); no wheezes Cardiovascular: Rate/Rhythm: regular rate and + irregularly irregular Heart Sounds: no murmur Extremities: + edema (2+ pitting edema of arms, legs, up through scrotum and abdomen) Chest (Breasts): Chest: normal inspection of chest Gastrointestinal (Abdomen): Inspection/Auscultation: normal bowel sounds and + abdominal edema; abdomen not distended Percussion/Palpation: + hernia (Bilateral inguinal); abdomen nontender Skin: + ecchymosis (Multiple ecchymoses on arms and legs) and + mottling (Of the toes and feet bilaterally) Neurologic: + obtunded (Initially, but then briefly woke up) Psychiatric: Orientation: + not alert, + not oriented to person and + uncooperative Eye Contact: + poor eye contact Genitourinary: + hydrocele Results & Data Results & Data ([facility]) Vital Signs (Past 12 Hours) Vital Signs Temp Pulse Pulse Resp BP Pulse Ox 07/09/20 09:06 104 H 07/09/20 08:44 100 07/09/20 07:45 36.4 C L 77 20 93/72 L 07/09/20 03:58 36.4 C L 104 H 18 107/75 99 07/08/20 23:36 36.9 C 89 18 105/69 97 Laboratory Results 07/09/20 07/09/20 07/09/20 Range/Units 20:04 10:23 10:23 WBC 9.73 (4.8-10.8) K/uL RBC 2.86 L (4.7-6.1) M/uL Hgb 11.6 L (14.0-18.0) g/dL Hct 34.3 L (42-52) % MCV 119.9 H (80-100) fL MCH 40.6 H (25-34) pg MCHC 33.8 (32-36) g/dL RDW Std Deviation 103.8 H (36.4-46.3) fL RDW Coeff of Yasmine 23.2 H (11.5-14.5) % Plt Count 180 (130-400) K/uL MPV 13.3 H (7.4-10.4) fL Immature Gran % (Auto) 2.0 % Neut % (Auto) 86.5 % Lymph % (Auto) 3.4 % [place] % (Auto) 7.9 % Eos % (Auto) 0.0 % Baso % (Auto) 0.2 % Neut # (Auto) 8.42 H (1.4-6.5) K/uL Lymph # (Auto) 0.33 L (1.2-3.4) K/uL [place] # (Auto) 0.77 H (0.11-0.59) K/uL Eos # (Auto) 0.00 (0-0.5) K/uL Baso # (Auto) 0.02 (0-0.2) K/uL Immature Gran # (Auto) 0.19 H (0.00-0.02) K/uL Absolute Nucleated RBC 0.17 H (0-0) K/uL Nucleated RBC % (auto) 1.7 % Anisocytosis Present Macrocytosis Present Target Cells 1+ PT 21.5 H (9.0-12.0) Seconds INR 2.1 H (0.9-1.1) ABG pH (7.35-7.45) ABG pCO2 (35-46) mmHg ABG pO2 (80-95) mmHg ABG HCO3 (19-24) mmol/L ABG O2 Saturation (90-95) % ABG Base Excess (-9-1.8) mEq/L Dov Test (Pos) Barometric Pressure mm/Hg Oxygen Given Sodium (136-145) mmol/L Potassium (3.5-5.1) mmol/L Chloride (98-107) mmol/L Carbon Dioxide (21-32) mmol/L Anion Gap (3-11) BUN (7-18) mg/dl Creatinine (0.6-1.4) mg/dl Est Cr Clr Drug Dosing ml/min Est GFR ( Amer) Est GFR (Non-Af Amer) BUN/Creatinine Ratio (10-20) Glucose (70-99) mg/dl Calcium (8.5-10.1) mg/dl Ammonia (11-32) umol/L Vitamin B12 (211-911) pg/ml Folate (>5.38) ng/ml TSH (0.300-4.500) uIu/ml Urine Color Dark Yellow Urine Appearance Cloudy A (Clear) Urine pH 5.0 (4.5-7.5) Ur Specific [place] 1.030 (1.000-1.030) Urine Protein Trace H (Negative) Urine Glucose (UA) Negative (Negative) Urine Ketones Trace H (Negative) Urine Blood Negative (Negative) Urine Nitrite Negative (Negative) Urine Bilirubin Negative (Negative) Urine Urobilinogen Negative (Negative) Ur Leukocyte Esterase 1+ H (Negative) Urine WBC (Auto) 1-5 (0-5) /hpf Urine RBC (Auto) 5-10 H (0-4) /hpf U Hyaline Cast (Auto) 5-10 H (0-5) /lpf U Epithel Cells (Auto) >30 H (0-5) /lpf Urine Bacteria (Auto) Negative (Negative) 07/09/20 07/09/20 07/09/20 Range/Units 10:23 10:23 10:23 WBC (4.8-10.8) K/uL RBC (4.7-6.1) M/uL Hgb (14.0-18.0) g/dL Hct (42-52) % MCV (80-100) fL MCH (25-34) pg MCHC (32-36) g/dL RDW Std Deviation (36.4-46.3) fL RDW Coeff of Yasmine (11.5-14.5) % Plt Count (130-400) K/uL MPV (7.4-10.4) fL Immature Gran % (Auto) % Neut % (Auto) % Lymph % (Auto) % [place] % (Auto) % Eos % (Auto) % Baso % (Auto) % Neut # (Auto) (1.4-6.5) K/uL Lymph # (Auto) (1.2-3.4) K/uL [place] # (Auto) (0.11-0.59) K/uL Eos # (Auto) (0-0.5) K/uL Baso # (Auto) (0-0.2) K/uL Immature Gran # (Auto) (0.00-0.02) K/uL Absolute Nucleated RBC (0-0) K/uL Nucleated RBC % (auto) % Anisocytosis Macrocytosis Target Cells PT (9.0-12.0) Seconds INR (0.9-1.1) ABG pH (7.35-7.45) ABG pCO2 (35-46) mmHg ABG pO2 (80-95) mmHg ABG HCO3 (19-24) mmol/L ABG O2 Saturation (90-95) % ABG Base Excess (-9-1.8) mEq/L Dov Test (Pos) Barometric Pressure mm/Hg Oxygen Given Sodium 136 (136-145) mmol/L Potassium 4.3 (3.5-5.1) mmol/L Chloride 97 L (98-107) mmol/L Carbon Dioxide 35 H (21-32) mmol/L Anion Gap 4.0 (3-11) BUN 37 H (7-18) mg/dl Creatinine 1.31 (0.6-1.4) mg/dl Est Cr Clr Drug Dosing 36.5 ml/min Est GFR ( Amer) 60.0 Est GFR (Non-Af Amer) 51.8 BUN/Creatinine Ratio 28.1 H (10-20) Glucose 74 (70-99) mg/dl Calcium 8.5 (8.5-10.1) mg/dl Ammonia 33.2 H (11-32) umol/L Vitamin B12 1247 H (211-911) pg/ml Folate 10.95 (>5.38) ng/ml TSH 11.900 H (0.300-4.500) uIu/ml Urine Color Urine Appearance (Clear) Urine pH (4.5-7.5) Ur Specific [place] (1.000-1.030) Urine Protein (Negative) Urine Glucose (UA) (Negative) Urine Ketones (Negative) Urine Blood (Negative) Urine Nitrite (Negative) Urine Bilirubin (Negative) Urine Urobilinogen (Negative) Ur Leukocyte Esterase (Negative) Urine WBC (Auto) (0-5) /hpf Urine RBC (Auto) (0-4) /hpf U Hyaline Cast (Auto) (0-5) /lpf U Epithel Cells (Auto) (0-5) /lpf Urine Bacteria (Auto) (Negative) 07/09/20 Range/Units 10:14 WBC (4.8-10.8) K/uL RBC (4.7-6.1) M/uL Hgb (14.0-18.0) g/dL Hct (42-52) % MCV (80-100) fL MCH (25-34) pg MCHC (32-36) g/dL RDW Std Deviation (36.4-46.3) fL RDW Coeff of Yasmine (11.5-14.5) % Plt Count (130-400) K/uL MPV (7.4-10.4) fL Immature Gran % (Auto) % Neut % (Auto) % Lymph % (Auto) % [place] % (Auto) % Eos % (Auto) % Baso % (Auto) % Neut # (Auto) (1.4-6.5) K/uL Lymph # (Auto) (1.2-3.4) K/uL [place] # (Auto) (0.11-0.59) K/uL Eos # (Auto) (0-0.5) K/uL Baso # (Auto) (0-0.2) K/uL Immature Gran # (Auto) (0.00-0.02) K/uL Absolute Nucleated RBC (0-0) K/uL Nucleated RBC % (auto) % Anisocytosis Macrocytosis Target Cells PT (9.0-12.0) Seconds INR (0.9-1.1) ABG pH 7.40 (7.35-7.45) ABG pCO2 57 H (35-46) mmHg ABG pO2 87 (80-95) mmHg ABG HCO3 34 H (19-24) mmol/L ABG O2 Saturation 97.0 H (90-95) % ABG Base Excess 7.9 H (-9-1.8) mEq/L Dov Test Pos (Pos) Barometric Pressure 731.0 mm/Hg Oxygen Given 2L Sodium (136-145) mmol/L Potassium (3.5-5.1) mmol/L Chloride (98-107) mmol/L Carbon Dioxide (21-32) mmol/L Anion Gap (3-11) BUN (7-18) mg/dl Creatinine (0.6-1.4) mg/dl Est Cr Clr Drug Dosing ml/min Est GFR ( Amer) Est GFR (Non-Af Amer) BUN/Creatinine Ratio (10-20) Glucose (70-99) mg/dl Calcium (8.5-10.1) mg/dl Ammonia (11-32) umol/L Vitamin B12 (211-911) pg/ml Folate (>5.38) ng/ml TSH (0.300-4.500) uIu/ml Urine Color Urine Appearance (Clear) Urine pH (4.5-7.5) Ur Specific [place] (1.000-1.030) Urine Protein (Negative) Urine Glucose (UA) (Negative) Urine Ketones (Negative) Urine Blood (Negative) Urine Nitrite (Negative) Urine Bilirubin (Negative) Urine Urobilinogen (Negative) Ur Leukocyte Esterase (Negative) Urine WBC (Auto) (0-5) /hpf Urine RBC (Auto) (0-4) /hpf U Hyaline Cast (Auto) (0-5) /lpf U Epithel Cells (Auto) (0-5) /lpf Urine Bacteria (Auto) (Negative) Diagnostic Findings XR chest 1V portable CLINICAL HISTORY: Shortness of breath. Hypoxia. COMPARISON STUDY: Chest radiograph and chest CT July 08, 2020. FINDINGS: There is no pneumothorax. Moderate bilateral pleural effusions and associated bibasilar opacities persist. There are multiple old left rib fractures. Cardiomegaly is unchanged. Pulmonary vascular congestion. IMPRESSION: 1. Moderate bilateral pleural effusions with associated bibasilar opacities that favor atelectasis. 2. Pulmonary vascular congestion. 3. Cardiomegaly. ABDOMEN AND PELVIS CT WITH IV CONTRAST CT DOSE: 273.28 mGy.cm HISTORY: hepatomegaly,h/o prostate cancer TECHNIQUE: Multiaxial CT images of the abdomen and pelvis were performed following the use of intravenous contrast. A dose lowering technique was utilized adhering to the principles of ALARA. COMPARISON STUDY: Abdomen and pelvis CT 04/27/2020. Chest CTA 1020. FINDINGS: No change in the moderate bilateral pleural effusions with consolidation the base of the bilateral lower lobes. This favors compressive atelectasis from the pleural effusions. The heart remains enlarged. No pneumoperitoneum. No pneumatosis. Healing right pubic ring fractures and healing sacral fractures. Bilateral L5 spondylolysis. Multiple healing bilateral rib fractures. Subacute/healing mild superior endplate compression fracture at L3. The sacral fractures involve the S2 vertebral body. Old moderate anterior wedge- shaped compression of T12. Severe body wall edema. Moderate size bilateral bowel containing inguinal hernias. The right inguinal hernia containing decompressed loops of small bowel. The left inguinal hernia contains a short segment of the proximal sigmoid colon. This remains unchanged. Large right and small left hydrocele. Cholelithiasis. The main portal vein appears patent. The liver, spleen, adrenal glands are unremarkable. There are few punctate calcifications at the pancreatic head. Otherwise, the pancreas is within normal limits. No hydronephrosis. Moderate bilateral cortical renal thinning. There are 2 small hypodense lesions within the upper pole the right kidney. These favor cysts. No retroperitoneal lymphadenopathy. Normal bladder. The prostate gland is mildly enlarged. Moderate rectal wall thickening. Moderate well-formed stool within the colon. No evidence for bowel obstruction. Normal appendix. A 7 mm saccular aneurysm extending from the right side of the abdominal aorta best in image 139. Ectatic abdominal aorta measuring up to 2.5 cm. 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 Small amount of ascites. IMPRESSION: 1. No change in the moderate bilateral pleural effusions. 2. Extensive body wall edema which has progressed. 3. Small amount of ascites. 4. Moderate rectal wall thickening. This is nonspecific but could represent a proctitis. 5. 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 6. Multiple healing fractures as described above. 7. No change in the moderate sized bowel containing bilateral inguinal hernias. No evidence for bowel obstruction. 8. Cholelithiasis. 9. Bilateral hydroceles. PG Care Time/CCT Total # of Minutes Spent Total Time Spent with Patient: Total time spent is greater than 50% in coordination of care (as documented) at patient's floor/unit and/or counseling patient: Coding Level of Care Code 55743 Subseq Hosp Care Lvl 3 Diagnoses Atrial fibrillation with rapid ventricular response I48.91 Acute hypotension I95.9 Hypoxia R09.02 Prostate cancer C61 Chronic left ventricular systolic heart failure I50.22 Dementia F03.90 Hyperlipidemia E78.5 Acute and chronic respiratory failure with hypoxia J96.21 Chronic obstructive pulmonary disease J44.9 Inguinal hernia K40.90 LBBB (left bundle branch block) I44.7 Hypothyroidism E03.9 DVT prophylaxis Z29.9
[2020-07-09 10:22] LABS: Base Excess ABG 7.9 mEq/L (-9-1.8); HCO3 ABG 34 mmol/L (19-24); PCO2 ABG 57 mmHg (35-46); PO2 ABG 87 mmHg (80-95)
[2020-07-09 10:23] LABS: Allen Test Pos (Pos)
[2020-07-09 10:33] LABS: Basophils # (auto) 0.02 K/uL (0-0.2); Basophils % (auto) 0.2 %; Hematocrit (blood only) 34.3 % (42-52); Hemoglobin 11.6 g/dL (14.0-18.0); Immature Granulocytes # (auto) 0.19 K/uL (0.00-0.02); Lymphocytes # (auto) 0.33 K/uL (1.2-3.4); Lymphocytes % (auto) 3.4 %; Mean Corpuscular Hemoglobin 40.6 pg (25-34); Mean Corpuscular Hgb Conc 33.8 g/dL (32-36); Mean Corpuscular Volume 119.9 fL (80-100); Mean Platelet Volume 13.3 fL (7.4-10.4); Monocytes # (auto) 0.77 K/uL (0.11-0.59); Monocytes % (auto) 7.9 %; Neutrophils # (auto) 8.42 K/uL (1.4-6.5); Neutrophils % (auto) 86.5 %; Nucleated RBC # (auto) 0.17 K/uL (0-0); Nucleated RBC % (auto) 1.7 %; Platelet Count 180 K/uL (130-400); RDW Coefficient of Variation 23.2 % (11.5-14.5); RDW Standard Deviation 103.8 fL (36.4-46.3); Red Blood Count 2.86 M/uL (4.7-6.1); White Blood Count 9.73 K/uL (4.8-10.8)
[2020-07-09 10:44] LABS: INR 2.1 (0.9-1.1); Prothrombin Time 21.5 Seconds (9.0-12.0)
[2020-07-09 10:50] LABS: BUN Creatinine Ratio 28.1 (10-20); Calcium 8.5 mg/dl (8.5-10.1); Creatinine Clr Calc Pharmacy 36.5 ml/min; Est GFR (Non-African American) 51.8; Potassium 4.3 mmol/L (3.5-5.1)
[2020-07-09 11:00] LABS: Thyroid Stimulating Hormone 11.9 uIu/ml (0.300-4.500)
[2020-07-09 11:02] LABS: Folate (Folic Acid) 10.95 ng/ml (>5.38)
[2020-07-09 11:22] LABS: Anisocytosis Present; Macrocytosis Present; Target Cells 1+
[2020-07-09] MEDS: FLUTICASONE/VILANTEROL 200/25MCG 14 PUFFS/INHALER INH SCH (12:59)
[2020-07-09] MEDS: LEVOTHYROXINE SODIUM 25 MCG in SYRINGE 0 ML IV SCH (12:59)
[2020-07-09] MEDS ORDERED: IOVERSOL 100ml IV ONE (13:27)
[2020-07-09] MEDS ORDERED: VANCOMYCIN HCL 750 MG in SODIUM CHLORIDE 0.9% 250 ML IV SCH (14:00)
--- NOTE | 2020-07-09 14:04 | CT Scan Report ---
ABDOMEN AND PELVIS CT WITH IV CONTRAST CT DOSE: 273.28 mGy.cm HISTORY: hepatomegaly,h/o prostate cancer TECHNIQUE: Multiaxial CT images of the abdomen and pelvis were performed following the use of intrave nous contrast. A dose lowering technique was utilized adhering to the principles of ALARA. COMPARISON STUDY: Abdomen and pelvis CT 04/27/2020. Chest CTA 1020. FINDINGS: No change in the moderate bilateral pleural effusions with consolidation the base of the bi lateral lower lobes. This favors compressive atelectasis from the pleural effusions. The heart remain s enlarged. No pneumoperitoneum. No pneumatosis. Healing right pubic ring fractures and healing sacra l fractures. Bilateral L5 spondylolysis. Multiple healing bilateral rib fractures. Subacute/healing m ild superior endplate compression fracture at L3. The sacral fractures involve the S2 vertebral body. Old moderate anterior wedge-shaped compression of T12. Severe body wall edema. Moderate size bilater al bowel containing inguinal hernias. The right inguinal hernia containing decompressed loops of smal l bowel. The left inguinal hernia contains a short segment of the proximal sigmoid colon. This remain s unchanged. Large right and small left hydrocele. Cholelithiasis. The main portal vein appears paten t. The liver, spleen, adrenal glands are unremarkable. There are few punctate calcifications at the p ancreatic head. Otherwise, the pancreas is within normal limits. No hydronephrosis. Moderate bilatera l cortical renal thinning. There are 2 small hypodense lesions within the upper pole the right kidney . These favor cysts. No retroperitoneal lymphadenopathy. Normal bladder. The prostate gland is mildly enlarged. Moderate rectal wall thickening. Moderate well-formed stool within the colon. No evidence for bowel obstruction. Normal appendix. A 7 mm saccular aneurysm extending from the right side of the abdominal aorta best in image 139. Ectatic abdominal aorta measuring up to 2.5 cm. 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 Small amount of ascites. IMPRESSION: 1. No change in the moderate bilateral pleural effusions. 2. Extensive body wall edema which has progressed. 3. Small amount of ascites. 4. Moderate rectal wall thickening. This is nonspecific but could represent a proctitis. 5. 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 6. Multiple healing fractures as described above. 7. No change in the moderate sized bowel containing bilateral inguinal hernias. No evidence for bowel obstruction. 8. Cholelithiasis. 9. Bilateral hydroceles. ACT 112: Negative or not required by law. Electronically signed by: Yrn Novoa M.D. 07/09/2020 2:03 PM
[2020-07-09] MEDS: WARFARIN SOD 5 MG TAB PO SCH (16:13)
[2020-07-09] MEDS: ATORVASTATIN 10 MG TAB PO SCH (19:59)
[2020-07-09 20:31] LABS: Appearance Urine Cloudy (Clear); Bacteria Urine Automated Negative (Negative); Bilirubin Urine Negative (Negative); Blood Urine Negative (Negative); Color Urine Dark Yellow; Epithelial Cell Urine Auto >30 /lpf (0-5); Glucose Urine UA Negative (Negative); Ketones Urine Trace (Negative); Leukocyte Esterase Urine 1+ (Negative); Nitrite Urine Negative (Negative); Protein Urine Trace (Negative); Urobilinogen Urine Negative (Negative)
[2020-07-10] MEDS ORDERED: METOPROLOL TARTRATE 1 MG/ML VIAL IV ONE (02:57)
[2020-07-10] MEDS: CEFEPIME 2,000 MG in SYRINGE 7.5 ML IV SCH ×2 (04:15→16:52)
[2020-07-10 06:09] LABS: Basophils # (auto) 0.02 K/uL (0-0.2); Basophils % (auto) 0.2 %; Eosinophils # (auto) 0.02 K/uL (0-0.5); Eosinophils % (auto) 0.2 %; Hematocrit (blood only) 34.5 % (42-52); Hemoglobin 11.4 g/dL (14.0-18.0); Immature Granulocytes % (auto) 1.8 %; Lymphocytes # (auto) 0.48 K/uL (1.2-3.4); Lymphocytes % (auto) 4.2 %; Mean Corpuscular Hemoglobin 39.3 pg (25-34); Mean Platelet Volume 12.9 fL (7.4-10.4); Monocytes # (auto) 0.87 K/uL (0.11-0.59); Monocytes % (auto) 7.6 %; Neutrophils # (auto) 9.83 K/uL (1.4-6.5); Nucleated RBC % (auto) 1.8 %; Platelet Count 203 K/uL (130-400); RDW Standard Deviation 102.6 fL (36.4-46.3); White Blood Count 11.42 K/uL (4.8-10.8)
[2020-07-10 06:23] LABS: INR 2.3 (0.9-1.1); Prothrombin Time 22.8 Seconds (9.0-12.0)
[2020-07-10 06:36] LABS: Anisocytosis Present; Target Cells 1+
[2020-07-10 06:39] LABS: Calcium 7.7 mg/dl (8.5-10.1); Creatinine Clr Calc Pharmacy 45.4 ml/min; Est GFR (African American) 75.8; Est GFR (Non-African American) 65.4; Potassium 4.2 mmol/L (3.5-5.1)
[2020-07-10] MEDS: LEVOTHYROXINE SODIUM 25 MCG in SYRINGE 0 ML IV SCH (08:52)
[2020-07-10] MEDS: BICALUTAMIDE 50 MG TAB PO SCH (09:36)
[2020-07-10] MEDS: METOPROLOL SUCC 50MG EXT REL TAB PO SCH (09:36)
[2020-07-10] MEDS: UMECLIDINIUM BROMIDE 62.5MCG/BLISTER 7 PUFFS/INHALER INH SCH (09:37)
--- NOTE | 2020-07-10 10:02 | Cardiology Progress Note ---
Date of Service July 10, 2020 Assessment & Plan (1) Atrial fibrillation with rapid ventricular response: Ventricular rates remain well controlled Continue metoprolol as tolerated, if patient is alert enough to take oral medications. (2) Acute and chronic respiratory failure with hypoxia: chronic respiratory failure with supplemental O2 at home B/L pleural effusions noted on xray, but oxygen saturations acceptable on 2 L O2 Clinically patient appears volume depleted. would hold IV diuretics at this time (3) Chronic left ventricular systolic heart failure: History of underlying LBBB and non ischemic cardiomyopathy Case discussed with Dr. Lanier. Continue metoprolol and coumadin. Per outpatient discussion, he is a significant fall risk, with recent head trauma but /med dir wished to resume coumadin. Agree with palliative care consult. Will follow. Admission and Anticipated Discharge Date Admission Date: July 08, 2020 Supervising Physician Co-Signing Physician Notes Supervising Physician Attestation: I have personally performed a history and physical examination on the patient. I agree with the physician workers compensation claims assistant's findings and plan as documented with the following additions. Patient is a awake, atrial fibrillation in the range of 80 to 110 bpm noted at rest. Patient with comorbidities including metastatic prostate cancer, cardiomyopathy with congestive heart failure, dementia. He had previously been on hospice care, and has been admitted twice at another institution and once at this institution recently. Palliative care input noted and appreciated, family meeting planned for tomorrow. Patient is a DNR/DNI. DVT prophylaxis: On Coumadin Sidney Lanier, DO Subjective Patient more awake/alert this morning. Arouses to voice/name. He was able to answer questions appropriately. He denied chest pain or SOB. Reports he "feels good". Voiced no complaints. Review of Systems Review of Systems: All systems reviewed & are unremarkable except as noted in HPI & below Physical Exam Constitutional: + ill appearing, + thin and + cachectic Respiratory: Auscultation: + diminished lung sounds Cardiovascular: Rate/Rhythm: + irregularly irregular Heart Sounds: no murmur Vessels: no JVD Extremities: no edema Gastrointestinal (Abdomen): normal bowel sounds, soft, nontender, no hepatosplenomegaly Psychiatric: Orientation: oriented to place and cooperative Results & Data ([facility]) Vital Signs (Past 12 Hours) Vital Signs Temp Pulse Pulse Resp BP BP Pulse Ox 07/10/20 07:46 98 H 07/10/20 07:34 36.6 C 83 16 117/88 98 07/10/20 06:34 97 H 96/68 L 07/10/20 04:34 36.4 C L 117 H 22 96/68 L 96 07/09/20 23:36 36.8 C 96 H 18 111/65 95 07/09/20 23:17 102 H Laboratory Results 07/10/20 07/10/20 07/10/20 Range/Units 05:40 05:40 05:40 WBC 11.42 H (4.8-10.8) K/uL RBC 2.90 L (4.7-6.1) M/uL Hgb 11.4 L (14.0-18.0) g/dL Hct 34.5 L (42-52) % MCV 119.0 H (80-100) fL MCH 39.3 H (25-34) pg MCHC 33.0 (32-36) g/dL RDW Std Deviation 102.6 H (36.4-46.3) fL RDW Coeff of Yasmine 23.0 H (11.5-14.5) % Plt Count 203 (130-400) K/uL MPV 12.9 H (7.4-10.4) fL Immature Gran % (Auto) 1.8 % Neut % (Auto) 86.0 % Lymph % (Auto) 4.2 % Jackson % (Auto) 7.6 % Eos % (Auto) 0.2 % Baso % (Auto) 0.2 % Neut # (Auto) 9.83 H (1.4-6.5) K/uL Lymph # (Auto) 0.48 L (1.2-3.4) K/uL Jackson # (Auto) 0.87 H (0.11-0.59) K/uL Eos # (Auto) 0.02 (0-0.5) K/uL Baso # (Auto) 0.02 (0-0.2) K/uL Immature Gran # (Auto) 0.20 H (0.00-0.02) K/uL Absolute Nucleated RBC 0.20 H (0-0) K/uL Nucleated RBC % (auto) 1.8 % Anisocytosis Present Macrocytosis Target Cells 1+ PT 22.8 H (9.0-12.0) Seconds INR 2.3 H (0.9-1.1) ABG pH (7.35-7.45) ABG pCO2 (35-46) mmHg ABG pO2 (80-95) mmHg ABG HCO3 (19-24) mmol/L ABG O2 Saturation (90-95) % ABG Base Excess (-9-1.8) mEq/L Dov Test (Pos) Barometric Pressure mm/Hg Oxygen Given Sodium 139 (136-145) mmol/L Potassium 4.2 (3.5-5.1) mmol/L Chloride 101 (98-107) mmol/L Carbon Dioxide 34 H (21-32) mmol/L Anion Gap 4.0 (3-11) BUN 36 H (7-18) mg/dl Creatinine 1.08 (0.6-1.4) mg/dl Est Cr Clr Drug Dosing 45.4 ml/min Est GFR ( Amer) 75.8 Est GFR (Non-Af Amer) 65.4 BUN/Creatinine Ratio 33.0 H (10-20) Glucose 78 (70-99) mg/dl Calcium 7.7 L (8.5-10.1) mg/dl Ammonia (11-32) umol/L Vitamin B12 (211-911) pg/ml Folate (>5.38) ng/ml TSH (0.300-4.500) uIu/ml Urine Color Urine Appearance (Clear) Urine pH (4.5-7.5) Ur Specific Cocoa (1.000-1.030) Urine Protein (Negative) Urine Glucose (UA) (Negative) Urine Ketones (Negative) Urine Blood (Negative) Urine Nitrite (Negative) Urine Bilirubin (Negative) Urine Urobilinogen (Negative) Ur Leukocyte Esterase (Negative) Urine WBC (Auto) (0-5) /hpf Urine RBC (Auto) (0-4) /hpf U Hyaline Cast (Auto) (0-5) /lpf U Epithel Cells (Auto) (0-5) /lpf Urine Bacteria (Auto) (Negative) 07/09/20 07/09/20 07/09/20 Range/Units 20:04 10:23 10:23 WBC 9.73 (4.8-10.8) K/uL RBC 2.86 L (4.7-6.1) M/uL Hgb 11.6 L (14.0-18.0) g/dL Hct 34.3 L (42-52) % MCV 119.9 H (80-100) fL MCH 40.6 H (25-34) pg MCHC 33.8 (32-36) g/dL RDW Std Deviation 103.8 H (36.4-46.3) fL RDW Coeff of Yasmine 23.2 H (11.5-14.5) % Plt Count 180 (130-400) K/uL MPV 13.3 H (7.4-10.4) fL Immature Gran % (Auto) 2.0 % Neut % (Auto) 86.5 % Lymph % (Auto) 3.4 % Jackson % (Auto) 7.9 % Eos % (Auto) 0.0 % Baso % (Auto) 0.2 % Neut # (Auto) 8.42 H (1.4-6.5) K/uL Lymph # (Auto) 0.33 L (1.2-3.4) K/uL Jackson # (Auto) 0.77 H (0.11-0.59) K/uL Eos # (Auto) 0.00 (0-0.5) K/uL Baso # (Auto) 0.02 (0-0.2) K/uL Immature Gran # (Auto) 0.19 H (0.00-0.02) K/uL Absolute Nucleated RBC 0.17 H (0-0) K/uL Nucleated RBC % (auto) 1.7 % Anisocytosis Present Macrocytosis Present Target Cells 1+ PT 21.5 H (9.0-12.0) Seconds INR 2.1 H (0.9-1.1) ABG pH (7.35-7.45) ABG pCO2 (35-46) mmHg ABG pO2 (80-95) mmHg ABG HCO3 (19-24) mmol/L ABG O2 Saturation (90-95) % ABG Base Excess (-9-1.8) mEq/L Dov Test (Pos) Barometric Pressure mm/Hg Oxygen Given Sodium (136-145) mmol/L Potassium (3.5-5.1) mmol/L Chloride (98-107) mmol/L Carbon Dioxide (21-32) mmol/L Anion Gap (3-11) BUN (7-18) mg/dl Creatinine (0.6-1.4) mg/dl Est Cr Clr Drug Dosing ml/min Est GFR ( Amer) Est GFR (Non-Af Amer) BUN/Creatinine Ratio (10-20) Glucose (70-99) mg/dl Calcium (8.5-10.1) mg/dl Ammonia (11-32) umol/L Vitamin B12 (211-911) pg/ml Folate (>5.38) ng/ml TSH (0.300-4.500) uIu/ml Urine Color Dark Yellow Urine Appearance Cloudy A (Clear) Urine pH 5.0 (4.5-7.5) Ur Specific Cocoa 1.030 (1.000-1.030) Urine Protein Trace H (Negative) Urine Glucose (UA) Negative (Negative) Urine Ketones Trace H (Negative) Urine Blood Negative (Negative) Urine Nitrite Negative (Negative) Urine Bilirubin Negative (Negative) Urine Urobilinogen Negative (Negative) Ur Leukocyte Esterase 1+ H (Negative) Urine WBC (Auto) 1-5 (0-5) /hpf Urine RBC (Auto) 5-10 H (0-4) /hpf U Hyaline Cast (Auto) 5-10 H (0-5) /lpf U Epithel Cells (Auto) >30 H (0-5) /lpf Urine Bacteria (Auto) Negative (Negative) 07/09/20 07/09/20 07/09/20 Range/Units 10:23 10:23 10:23 WBC (4.8-10.8) K/uL RBC (4.7-6.1) M/uL Hgb (14.0-18.0) g/dL Hct (42-52) % MCV (80-100) fL MCH (25-34) pg MCHC (32-36) g/dL RDW Std Deviation (36.4-46.3) fL RDW Coeff of Yasmine (11.5-14.5) % Plt Count (130-400) K/uL MPV (7.4-10.4) fL Immature Gran % (Auto) % Neut % (Auto) % Lymph % (Auto) % Jackson % (Auto) % Eos % (Auto) % Baso % (Auto) % Neut # (Auto) (1.4-6.5) K/uL Lymph # (Auto) (1.2-3.4) K/uL Jackson # (Auto) (0.11-0.59) K/uL Eos # (Auto) (0-0.5) K/uL Baso # (Auto) (0-0.2) K/uL Immature Gran # (Auto) (0.00-0.02) K/uL Absolute Nucleated RBC (0-0) K/uL Nucleated RBC % (auto) % Anisocytosis Macrocytosis Target Cells PT (9.0-12.0) Seconds INR (0.9-1.1) ABG pH (7.35-7.45) ABG pCO2 (35-46) mmHg ABG pO2 (80-95) mmHg ABG HCO3 (19-24) mmol/L ABG O2 Saturation (90-95) % ABG Base Excess (-9-1.8) mEq/L Dov Test (Pos) Barometric Pressure mm/Hg Oxygen Given Sodium 136 (136-145) mmol/L Potassium 4.3 (3.5-5.1) mmol/L Chloride 97 L (98-107) mmol/L Carbon Dioxide 35 H (21-32) mmol/L Anion Gap 4.0 (3-11) BUN 37 H (7-18) mg/dl Creatinine 1.31 (0.6-1.4) mg/dl Est Cr Clr Drug Dosing 36.5 ml/min Est GFR ( Amer) 60.0 Est GFR (Non-Af Amer) 51.8 BUN/Creatinine Ratio 28.1 H (10-20) Glucose 74 (70-99) mg/dl Calcium 8.5 (8.5-10.1) mg/dl Ammonia 33.2 H (11-32) umol/L Vitamin B12 1247 H (211-911) pg/ml Folate 10.95 (>5.38) ng/ml TSH 11.900 H (0.300-4.500) uIu/ml Urine Color Urine Appearance (Clear) Urine pH (4.5-7.5) Ur Specific Cocoa (1.000-1.030) Urine Protein (Negative) Urine Glucose (UA) (Negative) Urine Ketones (Negative) Urine Blood (Negative) Urine Nitrite (Negative) Urine Bilirubin (Negative) Urine Urobilinogen (Negative) Ur Leukocyte Esterase (Negative) Urine WBC (Auto) (0-5) /hpf Urine RBC (Auto) (0-4) /hpf U Hyaline Cast (Auto) (0-5) /lpf U Epithel Cells (Auto) (0-5) /lpf Urine Bacteria (Auto) (Negative) 07/09/20 Range/Units 10:14 WBC (4.8-10.8) K/uL RBC (4.7-6.1) M/uL Hgb (14.0-18.0) g/dL Hct (42-52) % MCV (80-100) fL MCH (25-34) pg MCHC (32-36) g/dL RDW Std Deviation (36.4-46.3) fL RDW Coeff of Yasmine (11.5-14.5) % Plt Count (130-400) K/uL MPV (7.4-10.4) fL Immature Gran % (Auto) % Neut % (Auto) % Lymph % (Auto) % Jackson % (Auto) % Eos % (Auto) % Baso % (Auto) % Neut # (Auto) (1.4-6.5) K/uL Lymph # (Auto) (1.2-3.4) K/uL Jackson # (Auto) (0.11-0.59) K/uL Eos # (Auto) (0-0.5) K/uL Baso # (Auto) (0-0.2) K/uL Immature Gran # (Auto) (0.00-0.02) K/uL Absolute Nucleated RBC (0-0) K/uL Nucleated RBC % (auto) % Anisocytosis Macrocytosis Target Cells PT (9.0-12.0) Seconds INR (0.9-1.1) ABG pH 7.40 (7.35-7.45) ABG pCO2 57 H (35-46) mmHg ABG pO2 87 (80-95) mmHg ABG HCO3 34 H (19-24) mmol/L ABG O2 Saturation 97.0 H (90-95) % ABG Base Excess 7.9 H (-9-1.8) mEq/L Dov Test Pos (Pos) Barometric Pressure 731.0 mm/Hg Oxygen Given 2L Sodium (136-145) mmol/L Potassium (3.5-5.1) mmol/L Chloride (98-107) mmol/L Carbon Dioxide (21-32) mmol/L Anion Gap (3-11) BUN (7-18) mg/dl Creatinine (0.6-1.4) mg/dl Est Cr Clr Drug Dosing ml/min Est GFR ( Amer) Est GFR (Non-Af Amer) BUN/Creatinine Ratio (10-20) Glucose (70-99) mg/dl Calcium (8.5-10.1) mg/dl Ammonia (11-32) umol/L Vitamin B12 (211-911) pg/ml Folate (>5.38) ng/ml TSH (0.300-4.500) uIu/ml Urine Color Urine Appearance (Clear) Urine pH (4.5-7.5) Ur Specific Cocoa (1.000-1.030) Urine Protein (Negative) Urine Glucose (UA) (Negative) Urine Ketones (Negative) Urine Blood (Negative) Urine Nitrite (Negative) Urine Bilirubin (Negative) Urine Urobilinogen (Negative) Ur Leukocyte Esterase (Negative) Urine WBC (Auto) (0-5) /hpf Urine RBC (Auto) (0-4) /hpf U Hyaline Cast (Auto) (0-5) /lpf U Epithel Cells (Auto) (0-5) /lpf Urine Bacteria (Auto) (Negative) Diagnostic Findings Telemetry reviewed: Afib with controlled rates ranging 80-110. He had 7 beat run of wide complex tachycardia at 3:54 AM while sleeping Medications Administered Current Inpatient Medications Acetaminophen (Tylenol) 650 mg PO Q4H PRN PRN Reason: Pain or Fever Stop: 08/07/20 19:19 Albuterol (Ventolin 0.083% 2.5mg/3ml) 1.25 mg INH QID PRN PRN Reason: SOB OR WHEEZING Stop: 08/07/20 19:55 Atorvastatin Calcium (Lipitor) 10 mg PO QPM MARIE Stop: 08/07/20 20:59 Last Admin: 07/09/20 19:59 Dose: 10 mg Documented by: Bicalutamide (Casodex) 50 mg PO DAILY MARIE Stop: 08/08/20 08:59 Last Admin: 07/10/20 09:36 Dose: 50 mg Documented by: Fluticasone/Vilanterol (Breo Ellipta 200/25 Mcg Inh) 1 puffs INH QDL [facility] Stop: 08/08/20 11:29 Last Admin: 07/09/20 12:59 Dose: Not Given Documented by: Cefepime HCl 2,000 mg/ Syringe 20 mls @ 5.5 mls/min IV Q12H [facility]; Protocol Stop: 07/16/20 03:59 Last Admin: 07/10/20 04:15 Dose: 5.5 mls/min Documented by: Levothyroxine Sodium 25 mcg/ (Syringe) 1.25 mls @ 2 mls/min IV DAILY@0900 [facility] Stop: 08/08/20 11:29 Last Admin: 07/10/20 08:52 Dose: 2 mls/min Documented by: Levothyroxine Sodium (Synthroid) 25 mcg PO DAILYBB [facility] Stop: 07/11/20 08:00 Last Admin: 07/09/20 06:13 Dose: 25 mcg Documented by: Metoprolol Succinate (Toprol Xl) 50 mg PO DAILY [facility] Stop: 08/08/20 08:59 Last Admin: 07/10/20 09:36 Dose: 50 mg Documented by: Umeclidinium [place] (Incruse Ellipta) 1 puffs INH DAILY [facility] Stop: 08/08/20 08:59 Last Admin: 07/10/20 09:37 Dose: 1 puffs Documented by: Warfarin Sodium (Coumadin) 5 mg PO DAILY@1600 [facility] Stop: 08/08/20 15:59 Last Admin: 07/09/20 16:13 Dose: 5 mg Documented by:
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
[2020-07-10] MEDS: FLUTICASONE/VILANTEROL 200/25MCG 14 PUFFS/INHALER INH SCH (11:57)
[2020-07-10] MEDS: WARFARIN SOD 5 MG TAB PO SCH (16:51)
--- NOTE | 2020-07-10 17:16 | Hospitalist Progress Note ---
Date of Service July 10, 2020 Assessment & Plan (1) Atrial fibrillation with rapid ventricular response: Marcos Domingo is a 80 year old man with metastatic prostate cancer who is here for evaluation of confusion, A fib with RVR and hypotension Sepsis/Elevated lactate/pneumonia-difficult to say if truly has infection, but could be recurrent pneumonia-perhaps aspiration pneumonia With acute metabolic encephalopathy which is now completely resolved after treatment with antibiotics Tachycardic, hypotensive elevated lactate on admission which is now resolved with gentle IV fluid hydration Most likely source is pulmonary given recently treated pneumonia Blood cultures-no growth to date-will follow UA without evidence of infection Will continue to treat with cefepime for gram-negative pneumonia and received 1 dose of vancomycin for MRSA pneumonia coverage-now discontinued as MRSA nasal swab was negative -Received atypical coverage with Azithromycin but this is not felt to be necessary -Speech consultation to assess for aspiration-did not get a full assessment and due to poor cooperation yesterday, but now that he is mentating better, will ask speech therapy to come again tomorrow Bradypnea--> on hospital day #2, was obtunded off and on throughout the day with very low respiratory rates. Suspect acute metabolic encephalopathy in the setting of suspected central sleep apnea; could be related to hypothyroidism and/or severe dementia. However, today his respiratory status is completely back to baseline. Sleeps excessively as per for most of the day Pulse ox is acceptable on 2 L nasal cannula -Treating hypothyroidism -ABG performed which shows some mild chronic CO2 retention -He is known to frequently take his oxygen off, unclear if he would tolerate BiPAP while sleeping Severe dementia-patient has been rapidly declining in the last 6 months, but has had a diagnosis of dementia for 18 months. He does converse at times but is only awake usually from 2 PM to 7 or 8 PM each day. reports he at times has some "lucid moments." On 07/10, he was having 1 of those lucid days Has to be reminded to eat and drink at times Does have moments of significant agitation and violent outbursts as per Question if has Lewy body dementia -Palliative care consultation appreciated-plan for family meeting tomorrow to discuss goals of care given multiple significant comorbidities and recurrent hospitalizations Atrial Fibrillation with Rapid Ventricular response Initially was improved with gentle fluid administration, but now today, rates back up into the 160s in the evening -Give IV Lopressor 2.5 mg x 1 now-with good result-can repeat if needed for heart rate greater than 120 -Continue warfarin 5 mg daily and follow routine morning INR's, adjust dose as needed -Appreciate cardiology consultation -Continue telemetry monitoring -Continue Toprol-XL 50 mg p.o. once daily Acute on chronic systolic CHF Patient with bilateral pleural effusions, cardiomegaly and pulmonary vascular congestion. BNP greater than 35,000. Chest x-ray on 07/09 appears slightly worse. He is intravascularly volume depleted secondary to hypoalbuminemia and further IV diuretics will likely not be beneficial -We will give 1 dose of IV albumin today but would only be temporary fix Overall very poor prognosis and multiple comorbidities-palliative care consultation discussed with and is requested -No further IV fluids -Does not appear to be on diuretics on home medication list at this time-will diurese if becomes symptomatic from a pulmonary standpoint CRIS-creatinine 1.5 on admission now down to 1.0 likely prerenal from intravascular volume depletion, poor p.o. intake Given 1.6 L nss in ED and improved -Follow BMP -Giving IV albumin COPD Patient with chronic hypoxia with some acute component here as per at home oxygen levels were dropping at times. Doing well here on 2-3 L He is not dyspneic On 4 L O2 at home Duonebs prn Prostate Cancer Metastatic, to spine and pelvis Being treated with androgen blockade, lupron depot injection q 6 months and bicalutamide daily Hypothyroidism-TSH is 11 here and reports he was recently started on levothyroxine 25 mcg daily as an outpatient and was to increase dose to 50 mcg daily on 07/12 Given that he likely has got edema as he has anasarca, we will give IV levothyroxine 25 mcg once daily especially in the setting of profound lethargy DVT PPx: Warfarin F/E/N: Continue pured diet, awaiting speech therapy reevaluation tomorrow Dispo: Continued stay on PCU, palliative care family meeting planned for 07/11 DNR/DNI Discussed his care with his on the phone (2) Acute hypotension: (3) Hypoxia: (4) Prostate cancer: (5) Chronic left ventricular systolic heart failure: (6) Dementia: (7) Hyperlipidemia: (8) Acute and chronic respiratory failure with hypoxia: (9) Chronic obstructive pulmonary disease: (10) Inguinal hernia: (11) LBBB (left bundle branch block): (12) Hypothyroidism: (13) DVT prophylaxis: Admission and Anticipated Discharge Date Admission Date: July 08, 2020 Subjective Patient was quite surprisingly awake and alert and conversive today. The nurse reports that he has been like this since he woke up this morning without any agitation. He still remains confused and with poor memory at baseline, but is v telma pleasant. He denies any chest pain or shortness of breath, no abdominal pain. He is eating his pureed diet. Later in the day he was in rapid atrial fibrillation with rates as high as 160s to 170. He was given IV Lopressor with improvement down to the low 100s. Review of Systems Review of Systems: All systems reviewed & are unremarkable except as noted in HPI & below Physical Exam Constitutional: + cachectic and cooperative; no acute distress, not combative and not lethargic Eyes: + anicteric sclerae ENMT: Mouth: + dentition abnormality Neck: trachea midline, no thyromegaly Respiratory: normal respiratory effort Auscultation: + diminished lung sounds (At the bases); no wheezes Cardiovascular: Rate/Rhythm: + tachycardic and + irregularly irregular Heart Sounds: no murmur Extremities: + edema (1+ pitting edema of arms, legs, up through scrotum and abdomen slightly improved from yesterday) Chest (Breasts): Chest: normal inspection of chest Gastrointestinal (Abdomen): Inspection/Auscultation: normal bowel sounds and + abdominal edema; abdomen not distended Percussion/Palpation: abdomen nontender Musculoskeletal: Extremities: no cyanosis and no clubbing Skin: no rashes, warm and dry + ecchymosis (Multiple ecchymoses on arms and legs) Neurologic: moves all extremities and awake; not obtunded Speech / Cognition: normal speech Psychiatric: Orientation: cooperative Eye Contact: good eye contact Affect: euthymic affect Cognition: + recent memory not intact Results & Data Results & Data ([facility]) Vital Signs (Past 12 Hours) Vital Signs Temp Pulse Pulse Resp BP BP Pulse Ox 07/10/20 15:18 105 H 07/10/20 14:59 36.5 C 98 H 17 111/73 96 07/10/20 12:00 36.5 C 93 H 18 115/75 97 07/10/20 07:46 98 H 07/10/20 07:34 36.6 C 83 16 117/88 98 07/10/20 06:34 97 H 96/68 L Laboratory Results 07/10/20 07/10/20 07/10/20 Range/Units 05:40 05:40 05:40 WBC 11.42 H (4.8-10.8) K/uL RBC 2.90 L (4.7-6.1) M/uL Hgb 11.4 L (14.0-18.0) g/dL Hct 34.5 L (42-52) % MCV 119.0 H (80-100) fL MCH 39.3 H (25-34) pg MCHC 33.0 (32-36) g/dL RDW Std Deviation 102.6 H (36.4-46.3) fL RDW Coeff of Yasmine 23.0 H (11.5-14.5) % Plt Count 203 (130-400) K/uL MPV 12.9 H (7.4-10.4) fL Immature Gran % (Auto) 1.8 % Neut % (Auto) 86.0 % Lymph % (Auto) 4.2 % Loup % (Auto) 7.6 % Eos % (Auto) 0.2 % Baso % (Auto) 0.2 % Neut # (Auto) 9.83 H (1.4-6.5) K/uL Lymph # (Auto) 0.48 L (1.2-3.4) K/uL Loup # (Auto) 0.87 H (0.11-0.59) K/uL Eos # (Auto) 0.02 (0-0.5) K/uL Baso # (Auto) 0.02 (0-0.2) K/uL Immature Gran # (Auto) 0.20 H (0.00-0.02) K/uL Absolute Nucleated RBC 0.20 H (0-0) K/uL Nucleated RBC % (auto) 1.8 % Anisocytosis Present Target Cells 1+ PT 22.8 H (9.0-12.0) Seconds INR 2.3 H (0.9-1.1) Sodium 139 (136-145) mmol/L Potassium 4.2 (3.5-5.1) mmol/L Chloride 101 (98-107) mmol/L Carbon Dioxide 34 H (21-32) mmol/L Anion Gap 4.0 (3-11) BUN 36 H (7-18) mg/dl Creatinine 1.08 (0.6-1.4) mg/dl Est Cr Clr Drug Dosing 45.4 ml/min Est GFR ( Amer) 75.8 Est GFR (Non-Af Amer) 65.4 BUN/Creatinine Ratio 33.0 H (10-20) Glucose 78 (70-99) mg/dl Calcium 7.7 L (8.5-10.1) mg/dl PG Care Time/CCT Total # of Minutes Spent Total Time Spent with Patient: Total time spent is greater than 50% in coordination of care (as documented) at patient's floor/unit and/or counseling patient: Coding Level of Care Code 02580 Subseq Hosp Care Lvl 3 Diagnoses Atrial fibrillation with rapid ventricular response I48.91 Acute hypotension I95.9 Hypoxia R09.02 Prostate cancer C61 Chronic left ventricular systolic heart failure I50.22 Dementia F03.90 Hyperlipidemia E78.5 Acute and chronic respiratory failure with hypoxia J96.21 Chronic obstructive pulmonary disease J44.9 Inguinal hernia K40.90 LBBB (left bundle branch block) I44.7 Hypothyroidism E03.9 DVT prophylaxis Z29.9
[2020-07-10] MEDS ORDERED: METOPROLOL TARTRATE 1 MG/ML VIAL IV STA (17:18)
[2020-07-10] MEDS: ATORVASTATIN 10 MG TAB PO SCH (20:30)
[2020-07-10] MEDS ORDERED: ALBUMIN 25% 50 ML IV ONE (22:22)
--- NOTE | 2020-07-10 23:54 | Electrocardiogram Report ---
Test Reason : Blood Pressure : / mmHG Vent. Rate : 082 BPM Atrial Rate : 258 BPM P-R Int : 000 ms QRS Dur : 128 ms QT Int : 396 ms P-R-T Axes : 000 -32 198 degrees QTc Int : 462 ms Atrial fibrillation with premature ventricular or aberrantly conducted complexes Left axis deviation Left bundle branch block Abnormal ECG When compared with ECG of 08-JUL-2020 14:27, Vent. rate has decreased BY 48 BPM Confirmed by Ihsan Lynn ([id number]) on 07/10/2020 11:53:50 PM Referred By: REFERRED SELF Confirmed By:Ihsan Lynn
[2020-07-11] MEDS: CEFEPIME 2,000 MG in SYRINGE 7.5 ML IV SCH ×2 (04:07→15:40)
[2020-07-11 05:31] LABS: Basophils # (auto) 0.03 K/uL (0-0.2); Basophils % (auto) 0.3 %; Eosinophils # (auto) 0.03 K/uL (0-0.5); Eosinophils % (auto) 0.3 %; Hematocrit (blood only) 34.8 % (42-52); Hemoglobin 11.4 g/dL (14.0-18.0); Immature Granulocytes # (auto) 0.24 K/uL (0.00-0.02); Immature Granulocytes % (auto) 2.6 %; Lymphocytes # (auto) 0.43 K/uL (1.2-3.4); Lymphocytes % (auto) 4.6 %; Mean Corpuscular Hemoglobin 39.3 pg (25-34); Mean Corpuscular Hgb Conc 32.8 g/dL (32-36); Mean Platelet Volume 12.5 fL (7.4-10.4); Monocytes # (auto) 0.79 K/uL (0.11-0.59); Monocytes % (auto) 8.4 %; Neutrophils # (auto) 7.84 K/uL (1.4-6.5); Neutrophils % (auto) 83.8 %; Nucleated RBC # (auto) 0.42 K/uL (0-0); Nucleated RBC % (auto) 4.5 %; Platelet Count 238 K/uL (130-400); RDW Coefficient of Variation 23.1 % (11.5-14.5); RDW Standard Deviation 101.4 fL (36.4-46.3); White Blood Count 9.36 K/uL (4.8-10.8)
[2020-07-11 05:39] LABS: INR 2.5 (0.9-1.1)
[2020-07-11 05:51] LABS: Anisocytosis Present; Macrocytosis Present; Polychromasia 1+; Target Cells 1+
[2020-07-11 06:01] LABS: BUN Creatinine Ratio 28.7 (10-20); Calcium 7.9 mg/dl (8.5-10.1); Creatinine Clr Calc Pharmacy 45.4 ml/min; Est GFR (African American) 75.8; Est GFR (Non-African American) 65.4; Magnesium 2.5 mg/dl (1.8-2.4)
[2020-07-11] MEDS: UMECLIDINIUM BROMIDE 62.5MCG/BLISTER 7 PUFFS/INHALER INH SCH (07:59)
[2020-07-11] MEDS: BICALUTAMIDE 50 MG TAB PO SCH (08:00)
[2020-07-11] MEDS: METOPROLOL SUCC 50MG EXT REL TAB PO SCH (08:00)
[2020-07-11] MEDS: LEVOTHYROXINE SODIUM 25 MCG in SYRINGE 0 ML IV SCH (08:03)
[2020-07-11] MEDS: FLUTICASONE/VILANTEROL 200/25MCG 14 PUFFS/INHALER INH SCH (11:11)
[2020-07-11] MEDS ORDERED: METOPROLOL TARTRATE 25 MG TAB PO ONE (13:37)
--- NOTE | 2020-07-11 13:45 | Hospitalist Progress Note ---
Date of Service July 11, 2020 Assessment & Plan (1) Atrial fibrillation with rapid ventricular response: Marcos Domingo is a 80 year old man with metastatic prostate cancer who is here for evaluation of confusion, A fib with RVR and hypotension, pneumonia Sepsis/Elevated lactate/pneumonia-difficult to say if truly has infection, but could be recurrent pneumonia-perhaps aspiration pneumonia With acute metabolic encephalopathy which is now completely resolved after treatment with antibiotics Tachycardic, hypotensive elevated lactate on admission which improved somewhat with gentle IVFs, but now tachycardia persists Most likely source is pulmonary given recently treated pneumonia Blood cultures-no growth to date-will follow UA without evidence of infection Will continue to treat with cefepime for gram-negative pneumonia and received 1 dose of vancomycin for MRSA pneumonia coverage-now discontinued as MRSA nasal swab was negative -Received atypical coverage with Azithromycin but this is not felt to be necessary -Speech consultation to assess for aspiration-did not get a full assessment and due to poor cooperation previously-now that he is mentating better,I have asked speech therapy to reassess Bradypnea--> on hospital day #2, was obtunded off and on throughout the day with very low respiratory rates. Suspect acute metabolic encephalopathy in the setting of suspected central sleep apnea; could be related to hypothyroidism and/or severe dementia. However, since then his respiratory status is completely back to baseline. Sleeps excessively as per for most of the day Pulse ox is acceptable on 2 L nasal cannula -Treating hypothyroidism -ABG performed which shows some mild chronic CO2 retention -He is known to frequently take his oxygen off, unclear if he would tolerate BiPAP while sleeping Severe dementia-patient has been rapidly declining in the last 6 months, but has had a diagnosis of dementia for 18 months. He does converse at times but is only awake usually from 2 PM to 7 or 8 PM each day. reports he at times has some "lucid moments." On 07/10 and 07/11, he is certainly more conversive, cooperative, but remains with significant cognitive i mpairment Has to be reminded to eat and drink at times Does have moments of significant agitation and violent outbursts as per Question if has Lewy body dementia -Palliative care consultation appreciated-plan for family meeting today to discuss goals of care given multiple significant comorbidities and recurrent hospitalizations Atrial Fibrillation with Rapid Ventricular response Initially was improved with gentle fluid administration, but continues to have uncontrolled rates in 130s-140s at times -give metoprolol tartrate 25mg now and if BP tolerates, will increase Toprol XL to 75mg in the AM -Continue warfarin 5 mg daily and follow routine morning INR's, adjust dose as needed -Appreciate cardiology consultation -Continue telemetry monitoring -Continue Toprol-XL 50 mg p.o. once daily for now Acute on chronic systolic CHF Patient with bilateral pleural effusions, cardiomegaly and pulmonary vascular congestion. BNP greater than 35,000. Chest x-ray on 07/09 appears slightly worse. He is intravascularly volume depleted secondary to hypoalbuminemia and further IV diuretics will likely not be beneficial -gave 1 dose of IV albumin on 07/10 and edema is improved today--> but is only temporary fix Overall very poor prognosis and multiple comorbidities-palliative care consultation discussed with and is requested -No further IV fluids -Does not appear to be on diuretics on home medication list at this time-will diurese if becomes symptomatic from a pulmonary standpoint CRIS-creatinine 1.5 on admission now down to 1.0 likely prerenal from intravascular volume depletion, poor p.o. intake Given 1.6 L nss in ED and improved -Follow BMP -gave IV albumin x 1 dose as above COPD Patient with chronic hypoxia with some acute component here as per at home oxygen levels were dropping at times. Doing well here on 2-3 L He is not dyspneic On 4 L O2 at home Duonebs prn Prostate Cancer Metastatic, to spine and pelvis Being treated with androgen blockade, lupron depot injection q 6 months and bicalutamide daily Hypothyroidism-TSH is 11 here and reports he was recently started on levothyroxine 25 mcg daily as an outpatient and was to increase dose to 50 mcg daily on 07/12 Given that he likely has got edema as he has anasarca, we will give IV levothyroxine 25 mcg once daily especially in the setting of profound lethargy DVT PPx: Warfarin F/E/N: Continue pured diet, awaiting speech therapy reevaluation today Dispo: Continued stay on PCU, palliative care family meeting planned for 07/[address]/OT consults to see if can be managed at home vs SNF DNR/DNI (2) Acute hypotension: (3) Hypoxia: (4) Prostate cancer: (5) Chronic left ventricular systolic heart failure: (6) Dementia: (7) Hyperlipidemia: (8) Acute and chronic respiratory failure with hypoxia: (9) Chronic obstructive pulmonary disease: (10) Inguinal hernia: (11) LBBB (left bundle branch block): (12) Hypothyroidism: (13) DVT prophylaxis: Admission and Anticipated Discharge Date Admission Date: July 08, 2020 Subjective Pt very pleasant, denies CP or SOB. Remains confused. When asked if he ate food today he said "yes I ate two pressure points here, one pressure point there, and shit like that...at least I am eating!" and was smiling. Tele with Afib with rates 90s-130s Review of Systems Review of Systems: All systems reviewed & are unremarkable except as noted in HPI & below Physical Exam Constitutional: WD/WN, vitals as above + cachectic and cooperative; no acute distress, not combative and not lethargic Eyes: + anicteric sclerae ENMT: Mouth: + dentition abnormality Neck: trachea midline, no thyromegaly Respiratory: normal respiratory effort Auscultation: + diminished lung sounds (At the bases); no wheezes Cardiovascular: Rate/Rhythm: + tachycardic and + irregularly irregular Heart Sounds: no murmur Extremities: + edema ( now only trace pitting edema of arms, legs) Chest (Breasts): Chest: normal inspection of chest Gastrointestinal (Abdomen): Inspection/Auscultation: normal bowel sounds; abdomen not distended Percussion/Palpation: abdomen nontender Musculoskeletal: Extremities: no cyanosis and no clubbing Skin: no rashes, warm and dry + ecchymosis (Multiple ecchymoses on arms and legs) Neurologic: moves all extremities and awake; not obtunded Speech / Cognition: normal speech Psychiatric: Orientation: cooperative Eye Contact: good eye contact Affect: euthymic affect Cognition: + recent memory not intact Results & Data Results & Data ([facility]) Vital Signs (Past 12 Hours) Vital Signs Temp Pulse Pulse Resp BP BP Pulse Ox 07/11/20 11:54 36.9 C 92 H 18 103/68 98 07/11/20 07:54 36.6 C 129 H 19 110/67 98 07/11/20 07:31 104 H 07/11/20 04:07 36.7 C 106 H 18 100/67 97 Laboratory Results 07/11/20 07/11/20 07/11/20 Range/Units 05:09 05:09 05:09 WBC 9.36 (4.8-10.8) K/uL RBC 2.90 L (4.7-6.1) M/uL Hgb 11.4 L (14.0-18.0) g/dL Hct 34.8 L (42-52) % MCV 120.0 H (80-100) fL MCH 39.3 H (25-34) pg MCHC 32.8 (32-36) g/dL RDW Std Deviation 101.4 H (36.4-46.3) fL RDW Coeff of Yasmine 23.1 H (11.5-14.5) % Plt Count 238 (130-400) K/uL MPV 12.5 H (7.4-10.4) fL Immature Gran % (Auto) 2.6 % Neut % (Auto) 83.8 % Lymph % (Auto) 4.6 % Larue % (Auto) 8.4 % Eos % (Auto) 0.3 % Baso % (Auto) 0.3 % Neut # (Auto) 7.84 H (1.4-6.5) K/uL Lymph # (Auto) 0.43 L (1.2-3.4) K/uL Larue # (Auto) 0.79 H (0.11-0.59) K/uL Eos # (Auto) 0.03 (0-0.5) K/uL Baso # (Auto) 0.03 (0-0.2) K/uL Immature Gran # (Auto) 0.24 H (0.00-0.02) K/uL Absolute Nucleated RBC 0.42 H (0-0) K/uL Nucleated RBC % (auto) 4.5 % Polychromasia 1+ Anisocytosis Present Macrocytosis Present Target Cells 1+ PT 25.0 H (9.0-12.0) Seconds INR 2.5 H (0.9-1.1) Sodium 140 (136-145) mmol/L Potassium 4.0 (3.5-5.1) mmol/L Chloride 102 (98-107) mmol/L Carbon Dioxide 33 H (21-32) mmol/L Anion Gap 5.0 (3-11) BUN 31 H (7-18) mg/dl Creatinine 1.08 (0.6-1.4) mg/dl Est Cr Clr Drug Dosing 45.4 ml/min Est GFR ( Amer) 75.8 Est GFR (Non-Af Amer) 65.4 BUN/Creatinine Ratio 28.7 H (10-20) Glucose 70 (70-99) mg/dl Calcium 7.9 L (8.5-10.1) mg/dl Magnesium 2.5 H (1.8-2.4) mg/dl PG Care Time/CCT Total # of Minutes Spent Total Time Spent with Patient: Total time spent is greater than 50% in coordination of care (as documented) at patient's floor/unit and/or counseling patient: Coding Level of Care Code 17669 Subseq Hosp Care Lvl 3 Diagnoses Atrial fibrillation with rapid ventricular response I48.91 Acute hypotension I95.9 Hypoxia R09.02 Prostate cancer C61 Chronic left ventricular systolic heart failure I50.22 Dementia F03.90 Hyperlipidemia E78.5 Acute and chronic respiratory failure with hypoxia J96.21 Chronic obstructive pulmonary disease J44.9 Inguinal hernia K40.90 LBBB (left bundle branch block) I44.7 Hypothyroidism E03.9 DVT prophylaxis Z29.9
[2020-07-11] MEDS: WARFARIN SOD 5 MG TAB PO SCH (15:38)
--- NOTE | 2020-07-11 15:58 | Palliative Care Progress Note ---
Date of Service July 11, 2020 Assessment & Plan (1) Goals of care, counseling/discussion: Patient is a 80 year old male with a past medical history significant for metastatic prostate cancer, A. fib, CHF, COPD, dementia and PATRICIO who presented to [facility] on 07/08 with altered mental status, weakness, and poor PO intake. The patient has had recent admissions at [facility] s/p falls resulting in a pelvic fracture, rib fractures. The patient live at home with his , Cathy. He does require 4 LNC of supplemental O2 at baseline. Discussions regarding hospice has been brought up before; they did not accept hospice care as they would have required patient to stop his Coumadin and stated they would not treat UTIs for comfort. Palliative Care was consulted to discuss goals of care. -I met the patient in room 229-1. Patient's , Cathy, at bedside. The patient was sitting upright in bed, awake and alert, in no apparent distress. -The patient is oriented to person only, gave the year as 2024, then 1994, would not guess at the month, did not know he was in the hospital -I called his daughter Karine at [phone], we talked at length about their previous experience with setting up Hospice, I am aware there may be 1 or more other hospice agencies that will allow patient to continue his Coumadin, his Casodex, and treat UTIs as needed- and daughter amenable to hospice referral if these conditions are met. Left message for case management -He has multiple nearing end-stage diagnosis that would qualify him for hospice. (In this order) 1. COPD (O2 dependent at baseline and periods of prolonged apnea) 2. CHF 3. Senile Degeneration fo the Brain 4. Metastatic Prostate CA -Patient will remain a DNR/DNI. -The patient, does at times, become combative with staff. Appears calm and cooperative at this time. -palliative care will continue to follow and assist with decision making. -FAST all of 6 and up to and including 7b. -PPS: 30% (2) Acute and chronic respiratory failure with hypoxia: (3) Prostate cancer: (4) Dementia: (5) Chronic obstructive pulmonary disease: Admission and Anticipated Discharge Date Admission Date: July 08, 2020 Subjective Met with patient and at bedside-we are supposed to have a family meeting to include their 3 children. reports none of them can come in person due to work requirements, requests that I speak with her daughter by phone. and children are well aware of his current condition and prognosis-they had met with hospice in the past but the particular agency they met with stated they would not continue Coumadin or treat UTIs, so they never signed up. Family is open to hospice referral if the patient can continue on his Coumadin with lab monitoring, continue on his Casodex and be treated for UTIs for comfort. Left message with case management. Spoke with daughter Mary Ann, by phone, Review of Systems Review of Systems: Unobtainable due to cognitive status Physical Exam Physical Exam: PE: Patient awake, alert to person, no acute distress HEENT: Poor dentition Respirations: Unlabored, few crackles right base CV: Tachycardic, positive pedal edema Abdomen: Nontender to palpation Extremities: Extensive ecchymoses Neuro: Oriented to person gave the year as 2024, then 1994. Could not even guess at the month. Results & Data ([facility]) Vital Signs (Past 12 Hours) Vital Signs Temp Pulse Pulse Pulse Resp BP BP 07/11/20 15:18 97.9 F 120 H 20 102/69 07/11/20 15:12 115 H 07/11/20 11:54 98.4 F 92 H 18 103/68 07/11/20 07:54 97.9 F 129 H 19 110/67 07/11/20 07:31 104 H 07/11/20 04:07 98.1 F 106 H 18 100/67 Pulse Ox 07/11/20 15:18 100 07/11/20 15:12 07/11/20 11:54 98 07/11/20 07:54 98 07/11/20 07:31 07/11/20 04:07 97 PG Care Time/CCT Total # of Minutes Spent Total Time Spent with Patient: Total time spent 45 minutes with greater than 50% of the time spent at bedside discussing family's goals as well as collaborating with daughter by phone. Left message for attending physician as well as case management. Coding Level of Care Code 30030 Subseq Hosp Care Lvl 3 Diagnoses Goals of care, counseling/discussion Z71.89 Acute and chronic respiratory failure with hypoxia J96.21 Prostate cancer C61 Dementia F03.90 Chronic obstructive pulmonary disease J44.9 Time Spent (min) 45
[2020-07-11] MEDS: ATORVASTATIN 10 MG TAB PO SCH (19:59)
[2020-07-12] MEDS: CEFEPIME 2,000 MG in SYRINGE 7.5 ML IV SCH ×2 (04:07→15:31)
[2020-07-12 06:05] LABS: INR 3.3 (0.9-1.1); Prothrombin Time 32.5 Seconds (9.0-12.0)
[2020-07-12] MEDS ORDERED: LEVOTHYROXINE SODIUM 50 MCG TABLET PO SCH (06:30)
[2020-07-12] MEDS: BICALUTAMIDE 50 MG TAB PO SCH (08:44)
[2020-07-12] MEDS: METOPROLOL SUCC 50MG EXT REL TAB PO SCH (08:44)
[2020-07-12] MEDS: UMECLIDINIUM BROMIDE 62.5MCG/BLISTER 7 PUFFS/INHALER INH SCH (08:44)
[2020-07-12] MEDS ORDERED: METOPROLOL SUCC 25MG EXT REL TAB PO STA (09:13)
[2020-07-12] MEDS: LEVOTHYROXINE SODIUM 25 MCG in SYRINGE 0 ML IV SCH (09:42)
[2020-07-12] MEDS: FLUTICASONE/VILANTEROL 200/25MCG 14 PUFFS/INHALER INH SCH (11:52)
--- NOTE | 2020-07-12 14:35 | Palliative Care Progress Note ---
Date of Service July 12, 2020 Assessment & Plan (1) Goals of care, counseling/discussion: This is an unfortunate 80 year old male who presented to the [facility] with altered mental status, weakness, and poor PO intake. The patient has had recent admissions at [facility] s/p falls resulting in a pelvic fracture, rib fractures and a new diagnosis of PNA. Additional PMH includes AF with RVR, A/C CHF, COPD, dementia, & metastatic prostate CA. On admission the gentleman was frail, cachectic and ultimately breathing really shallow with periods of agonal or apneic breathing. The patient does, at baseline, live at home with his , Cathy. He does require 4 LNC of supplemental O2 at baseline. Discussions regarding hospice has been brought up before; however, family dynamics are not aligning and a lot of questions are being posed regarding medications, etc when it comes to the Hospice transition. Palliative Care was consulted to discuss goals of care. -Multiple discussions have been held over the last few days regarding goals of care and introducing Hospice into the patients home. -The patient does live with his , Cathy who would be the primary caregiver. Two adult children will be involved as one. One is an [employer]. -I did make the expectation that we would try hospice at home, but ultimately we would need to look at a SNF if the family was unable to care for him effectively. -I called his , Cathy at [phone]. We talked at length about their previous experience with setting up Hospice. It seems like she is willing to try Hospice, but brought up she has concerns that he would not be able to remain on some of his medications i.e. Warfarin. -I did discuss this with the case management team. [facility] did indicate that they would be able to allow the patient to continue with his prescribed Casodex and Coumadin. -He has multiple nearing end-stage diagnosis that would qualify him for hospice. (In this order) 1. COPD (O2 dependent at baseline and periods of prolonged apnea) 2. CHF 3. Senile Degeneration fo the Brain 4. Metastatic Prostate CA -The patient, does at times, become combative with staff. Appears calm and cooperative at this time. I did discuss this with his and introduction to an antipsychotic PRN for behavioral disturbance, she was not interested in discussing this. -palliative care will continue to follow and assist with decision making. -FAST all of 6 and up to and including 7b. [facility] stated that they could accept the patient on Wednesday, but from my experience and with the complexity of the gentlemans intermittent behavioral changes, I would request that he be discharged on Sunday 07/15 for a seamless transition with having hospice be more equipt with meeting the patient in a more timely manner. This, also, is likely to prevent < 30 day hospitalization -PPS: 30% (2) Chronic obstructive pulmonary disease: (3) Dementia: (4) Chronic left ventricular systolic heart failure: (5) Prostate cancer: Admission and Anticipated Discharge Date Admission Date: July 08, 2020 Physical Exam Constitutional: + ill appearing, + thin, + cachectic, + disheveled, comfortable and + malnourished ENMT: Mouth: + poor dentition Respiratory: normal respiratory effort; does not use accessory muscles Auscultation: + diminished lung sounds Cardiovascular: Rate/Rhythm: regular rate and regular rhythm Extremities: normal capillary refill Gastrointestinal (Abdomen): normal bowel sounds, soft, nontender, no hepatosplenomegaly Skin: normal turgor, + dry skin and + pallor Results & Data ([facility]) Vital Signs (Past 12 Hours) Vital Signs Temp Pulse Pulse Pulse Resp BP Pulse Ox 07/12/20 11:27 36.3 C L 88 18 113/79 99 07/12/20 09:46 108 H 105/59 L 07/12/20 09:19 105 H 07/12/20 07:46 36.6 C 92 H 18 108/75 96 07/12/20 02:53 36.4 C L 104 H 18 106/67 100 PG Care Time/CCT Total # of Minutes Spent Total Time Spent with Patient: Total time spent is greater than 50% in coordination of care (as documented) at patient's floor/unit and/or counseling patient: 35 Coding Level of Care Code 89299 Subseq Hosp Care Lvl 3 Diagnoses Goals of care, counseling/discussion Z71.89 Chronic obstructive pulmonary disease J44.9 Dementia F03.90 Chronic left ventricular systolic heart failure I50.22 Prostate cancer C61 Time Spent (min) 35 Time Spent Midlevel Total time spent 35 minutes with > 50% of that time spent assessing the patient, discussing goals of care with family and IDT.
--- NOTE | 2020-07-12 19:14 | Hospitalist Progress Note ---
Date of Service July 12, 2020 Assessment & Plan (1) Atrial fibrillation with rapid ventricular response: Marcos Domingo is a 80 year old man with metastatic prostate cancer who is here for evaluation of confusion, A fib with RVR and hypotension, pneumonia Sepsis/Elevated lactate/pneumonia-difficult to say if truly has infection, but could be recurrent pneumonia-perhaps aspiration pneumonia With acute metabolic encephalopathy which is now completely resolved after treatment with antibiotics Tachycardic, hypotensive elevated lactate on admission -now resolved Most likely source is pulmonary given recently treated pneumonia Blood cultures-no growth to date-will follow UA without evidence of infection - treated with cefepime for gram-negative pneumonia and received 1 dose of vancomycin for MRSA pneumonia coverage-now discontinued as MRSA nasal swab was negative -convert to po Levaquin tomorrow to finish out a 7 day course -Received atypical coverage with Azithromycin but this is not felt to be necessary -Speech consultation to assess for aspiration--now that he is mentating better,I have asked speech therapy to reassess--> now advanced diet to minced and moist Bradypnea--> on hospital day #2, was obtunded off and on throughout the day with very low respiratory rates. Suspect acute metabolic encephalopathy in the setting of suspected central sleep apnea; could be related to hypothyroidism and/or severe dementia. However, since then his respiratory status is completely back to baseline. Sleeps excessively as per for most of the day Pulse ox is acceptable on 2 L nasal cannula -Treating hypothyroidism -ABG performed which shows some mild chronic CO2 retention -He is known to frequently take his oxygen off, unclear if he would tolerate BiPAP while sleeping Severe dementia-patient has been rapidly declining in the last 6 months, but has had a diagnosis of dementia for 18 months. He does converse at times but is only awake usually from 2 PM to 7 or 8 PM each day. reports he at times has some "lucid moments." Since 07/10, he is certainly more conversive, cooperative, but remains with significant cognitive impairment Has to be reminded to eat and drink at times Does have moments of significant agitation and violent outbursts as per Question if has Lewy body dementia -Palliative care consultation appreciated-had family meeting to discuss goals of care given multiple significant comorbidities and recurrent hospitalizations- plan for home with hospice on Wednesday Atrial Fibrillation with Rapid Ventricular response Initially was improved with gentle fluid administration, but then continued to have uncontrolled rates in 130s-140s at times--> now much improved with increasing dose of metoprolol -increase Toprol XL to 75mg in the AM -Continue warfarin 5 mg daily and follow routine morning INR's, adjust dose as needed -Appreciate cardiology consultation -stable for downgrade off tele Acute on chronic systolic CHF Patient with bilateral pleural effusions, cardiomegaly and pulmonary vascular congestion. BNP greater than 35,000. Chest x-ray on 07/09 appears slightly worse. He is intravascularly volume depleted secondary to hypoalbuminemia and further IV diuretics will likely not be beneficial -gave 1 dose of IV albumin on 07/10 and edema is improved somewhat Overall very poor prognosis and multiple comorbidities-palliative care consultation appreciated -Does not appear to be on diuretics on home medication list at this time-will diurese if becomes symptomatic from a pulmonary standpoint CRIS-creatinine 1.5 on admission now down to 1.0 likely prerenal from intravascular volume depletion, poor p.o. intake Given 1.6 L nss in ED and improved -Follow BMP -gave IV albumin x 1 dose as above COPD Patient with chronic hypoxia with some acute component here as per at home oxygen levels were dropping at times. Doing well here on 2-3 L He is not dyspneic On 4 L O2 at home Duonebs prn Prostate Cancer Metastatic, to spine and pelvis Being treated with androgen blockade, lupron depot injection q 6 months and bicalutamide daily Hypothyroidism-TSH is 11 here and reports he was recently started on levothyroxine 25 mcg daily as an outpatient and was to increase dose to 50 mcg daily on 07/12 Given that he likely has got edema as he has anasarca, have been giving IV levothyroxine 25 mcg once daily especially in the setting of profound lethargy -convert to po tomorrow DVT PPx: Warfarin Dispo: transfer off tele, plan for home with Hospice on Wednesday DNR/DNI (2) Acute hypotension: (3) Hypoxia: (4) Prostate cancer: (5) Chronic left ventricular systolic heart failure: (6) Dementia: (7) Hyperlipidemia: (8) Acute and chronic respiratory failure with hypoxia: (9) Chronic obstructive pulmonary disease: (10) Inguinal hernia: (11) LBBB (left bundle branch block): (12) Hypothyroidism: (13) DVT prophylaxis: Admission and Anticipated Discharge Date Admission Date: July 08, 2020 Subjective Pt denies problems, is awake and alert. He is incontinent of urine and stool when I came in the room. He reports he is eating. Discussed his case with Palliative Care. Review of Systems Review of Systems: All systems reviewed & are unremarkable except as noted in HPI & below Physical Exam Constitutional: + cachectic and cooperative; no acute distress Eyes: + anicteric sclerae ENMT: Mouth: + dentition abnormality Neck: trachea midline, no thyromegaly Respiratory: normal respiratory effort Auscultation: + diminished lung sounds (At the bases); no wheezes Cardiovascular: Rate/Rhythm: + tachycardic and + irregularly irregular Heart Sounds: no murmur Extremities: + edema ( now only trace pitting edema of arms, legs) Chest (Breasts): Chest: normal inspection of chest Gastrointestinal (Abdomen): Inspection/Auscultation: normal bowel sounds; abdomen not distended Percussion/Palpation: abdomen nontender Musculoskeletal: Extremities: no cyanosis and no clubbing Neurologic: moves all extremities and awake; not obtunded Speech / Cognition: normal speech Psychiatric: Orientation: cooperative Eye Contact: good eye contact Affect: euthymic affect Cognition: + recent memory not intact Results & Data Results & Data ([facility]) Vital Signs (Past 12 Hours) Vital Signs Temp Pulse Pulse Pulse Resp BP Pulse Ox 07/12/20 17:25 36.7 C 104 H 16 101/69 97 07/12/20 15:02 36.3 C L 97 H 16 105/73 98 07/12/20 11:27 36.3 C L 88 18 113/79 99 07/12/20 09:46 108 H 105/59 L 07/12/20 09:19 105 H 07/12/20 07:46 36.6 C 92 H 18 108/75 96 Laboratory Results 07/12/20 Range/Units 05:17 PT 32.5 H (9.0-12.0) Seconds INR 3.3 H (0.9-1.1) PG Care Time/CCT Total # of Minutes Spent Total Time Spent with Patient: Total time spent is greater than 50% in coordination of care (as documented) at patient's floor/unit and/or counseling patient: Coding Level of Care Code 67018 Subseq Hosp Care Lvl 2 Diagnoses Atrial fibrillation with rapid ventricular response I48.91 Acute hypotension I95.9 Hypoxia R09.02 Prostate cancer C61 Chronic left ventricular systolic heart failure I50.22 Dementia F03.90 Hyperlipidemia E78.5 Acute and chronic respiratory failure with hypoxia J96.21 Chronic obstructive pulmonary disease J44.9 Inguinal hernia K40.90 LBBB (left bundle branch block) I44.7 Hypothyroidism E03.9 DVT prophylaxis Z29.9
[2020-07-12] MEDS: ATORVASTATIN 10 MG TAB PO SCH (20:15)
[2020-07-13] MEDS: CEFEPIME 2,000 MG in SYRINGE 7.5 ML IV SCH ×2 (04:08→15:59)
[2020-07-13 06:44] LABS: INR 2.8 (0.9-1.1); Prothrombin Time 28.1 Seconds (9.0-12.0)
[2020-07-13] MEDS: UMECLIDINIUM BROMIDE 62.5MCG/BLISTER 7 PUFFS/INHALER INH SCH (08:14)
[2020-07-13] MEDS: BICALUTAMIDE 50 MG TAB PO SCH (08:14)
[2020-07-13] MEDS: METOPROLOL SUCC 25MG EXT REL TAB PO SCH (08:15)
[2020-07-13] MEDS: LEVOTHYROXINE SODIUM 25 MCG in SYRINGE 0 ML IV SCH (08:51)
[2020-07-13 09:04] LABS: Hematocrit (blood only) 38.8 % (42-52); Hemoglobin 12.7 g/dL (14.0-18.0); Mean Corpuscular Hemoglobin 39.4 pg (25-34); Mean Corpuscular Hgb Conc 32.7 g/dL (32-36); Mean Corpuscular Volume 120.5 fL (80-100); Mean Platelet Volume 12.9 fL (7.4-10.4); Nucleated RBC # (auto) 0.23 K/uL (0-0); Nucleated RBC % (auto) 1.8 %; Platelet Count 220 K/uL (130-400); RDW Coefficient of Variation 23.4 % (11.5-14.5); RDW Standard Deviation 103.8 fL (36.4-46.3); Red Blood Count 3.22 M/uL (4.7-6.1); White Blood Count 12.65 K/uL (4.8-10.8)
[2020-07-13 09:37] LABS: BUN Creatinine Ratio 27.3 (10-20); Calcium 8.7 mg/dl (8.5-10.1); Creatinine Clr Calc Pharmacy 41.2 ml/min; Est GFR (African American) 67.4; Est GFR (Non-African American) 58.2; Potassium 4.3 mmol/L (3.5-5.1)
[2020-07-13 10:04] LABS: ALC (manual) 1.21 K/uL (1.2-3.4); ANC (manual) 10.34 K/uL (1.4-6.5); Anisocytosis Present; Lymphocytes # (manual) 1.21 K/uL (1.2-3.4); Lymphocytes % (manual) 9.6 %; Macrocytosis Present; Monocytes # (manual) 0.99 K/uL (0.11-0.59); Monocytes % (manual) 7.8 %; Myelocytes # (manual) 0.11 K/uL (0-0); Myelocytes % (manual) 0.9 %; Neutrophils # (manual) 10.34 K/uL (1.4-6.5); Neutrophils % (manual) 81.7 %; Target Cells 1+
[2020-07-13] MEDS: FLUTICASONE/VILANTEROL 200/25MCG 14 PUFFS/INHALER INH SCH (11:43)
--- NOTE | 2020-07-13 20:01 | Hospitalist Progress Note ---
Date of Service July 13, 2020 Assessment & Plan (1) Atrial fibrillation with rapid ventricular response: Marcos Domingo is a 80 year old man with metastatic prostate cancer who is here for evaluation of confusion, A fib with RVR and hypotension, pneumonia Sepsis/Elevated lactate/pneumonia-difficult to say if truly has infection, but could be recurrent pneumonia-perhaps aspiration pneumonia With acute metabolic encephalopathy which is now completely resolved after treatment with antibiotics Tachycardic, hypotensive elevated lactate on admission -now resolved Most likely source is pulmonary given recently treated pneumonia Blood cultures-no growth to date-will follow UA without evidence of infection - treated with cefepime for gram-negative pneumonia and received 1 dose of vancomycin for MRSA pneumonia coverage-now discontinued as MRSA nasal swab was negative -convert to po Levaquin tomorrow to finish out a 7 day course with last dose on 07/15 -Speech consultation to assess for aspiration--now that he is mentating better,I have asked speech therapy to reassess--> now advanced diet to minced and moist Bradypnea--> on hospital day # 1 and 2, was obtunded off and on throughout the day with very low respiratory rates. Suspect acute metabolic encephalopathy in the setting of suspected central sleep apnea and pneumonia; could be related to hypothyroidism and/or severe dementia. However, since then his respiratory status is completely back to baseline. Sleeps excessively as per for most of the day Pulse ox is acceptable on 2 L nasal cannula -Treating hypothyroidism -ABG performed which shows some mild chronic CO2 retention -He is known to frequently take his oxygen off, unclear if he would tolerate BiPAP while sleeping Severe dementia-patient has been rapidly declining in the last 6 months, but has had a diagnosis of dementia for 18 months. He does converse at times but is only awake usually from 2 PM to 7 or 8 PM each day. reports he at times has some "lucid moments." Since 07/10, he is certainly more conversive, cooperative, but remains with significant cognitive impairment Has to be reminded to eat and drink at times Does have moments of significant agitation and violent outbursts as per Question if has Lewy body dementia -Palliative care consultation appreciated-had family meeting to discuss goals of care given multiple significant comorbidities and recurrent hospitalizations- plan for home with hospice on Wednesday Atrial Fibrillation with Rapid Ventricular response Initially was improved with gentle fluid administration, but then continued to have uncontrolled rates in 130s-140s at times--> now much improved with increasing dose of metoprolol -increased Toprol XL to 75mg in the AM -Continue warfarin 5 mg daily and follow routine morning INR's, adjust dose as needed-Coumadin was held x1 dose on 07/12 for supratherapeutic INR but now is restarted today -Appreciate cardiology consultation -Now off telemetry Acute on chronic systolic CHF Patient with bilateral pleural effusions, cardiomegaly and pulmonary vascular congestion. BNP greater than 35,000. Chest x-ray on 07/09 appears slightly worse. He is intravascularly volume depleted secondary to hypoalbuminemia and further IV diuretics will likely not be beneficial -gave 1 dose of IV albumin on 07/10 and edema is improved somewhat with less anasarca He is not symptomatic at all from a respiratory standpoint Overall very poor prognosis and multiple comorbidities-palliative care consultation appreciated -Does not appear to be on diuretics on home medication list at this time-will diurese if becomes symptomatic from a pulmonary standpoint CRIS-creatinine 1.5 on admission now down to 1.1 likely prerenal from intravascular volume depletion, poor p.o. intake Given 1.6 L nss in ED and improved -Follow BMP -gave IV albumin x 1 dose as above COPD Patient with chronic hypoxia with some acute component here as per at home oxygen levels were dropping at times. Doing well here on 2-3 L He is not dyspneic On 4 L O2 at home, but only requiring 3 L here now Susie prn Prostate Cancer Metastatic, to spine and pelvis Being treated with androgen blockade, lupron depot injection q 6 months and bicalutamide daily Hypothyroidism-TSH is 11 here and reports he was recently started on levothyroxine 25 mcg daily as an outpatient and was to increase dose to 50 mcg daily on 07/12 Given that he likely has got edema as he has anasarca, have been giving IV levothyroxine 25 mcg once daily especially in the setting of profound lethargy -convert to po tomorrow DVT PPx: Warfarin Dispo: Continued stay, plan for home with Hospice on Wednesday DNR/DNI (2) Acute hypotension: (3) Hypoxia: (4) Prostate cancer: (5) Chronic left ventricular systolic heart failure: (6) Dementia: (7) Hyperlipidemia: (8) Acute and chronic respiratory failure with hypoxia: (9) Chronic obstructive pulmonary disease: (10) Inguinal hernia: (11) LBBB (left bundle branch block): (12) Hypothyroidism: (13) DVT prophylaxis: Admission and Anticipated Discharge Date Admission Date: July 08, 2020 Subjective Patient pleasantly confused. Reports that he was doing exercises today with bands and was exercising his fingers. Denies chest pains or shortness of breath. Review of Systems Review of Systems: All systems reviewed & are unremarkable except as noted in HPI & below Physical Exam Constitutional: + cachectic and cooperative; no acute distress Eyes: + anicteric sclerae ENMT: Mouth: + dentition abnormality Neck: trachea midline, no thyromegaly Respiratory: normal respiratory effort Auscultation: + diminished lung sounds (At the bases); no wheezes Cardiovascular: Rate/Rhythm: regular rate and + irregularly irregular Heart Sounds: no murmur Extremities: + edema ( now only trace pitting edema of arms, legs) Chest (Breasts): Chest: normal inspection of chest Gastrointestinal (Abdomen): normal bowel sounds, soft, nontender, no hepatosplenomegaly Musculoskeletal: Extremities: no cyanosis and no clubbing Skin: + ecchymosis (Multiple ecchymoses on arms and legs) Neurologic: moves all extremities and awake; not obtunded Speech / Cognition: normal speech Psychiatric: Orientation: cooperative Eye Contact: good eye contact Affect: euthymic affect Cognition: + recent memory not intact Lymphatic: no lymphedema Results & Data Results & Data ([facility]) Vital Signs (Past 12 Hours) Vital Signs Temp Pulse Resp BP Pulse Ox 07/13/20 15:37 36.9 C 92 H 18 100/66 97 Laboratory Results 07/13/20 07/13/20 07/13/20 Range/Units 08:30 08:30 06:13 WBC 12.65 H (4.8-10.8) K/uL RBC 3.22 L (4.7-6.1) M/uL Hgb 12.7 L (14.0-18.0) g/dL Hct 38.8 L (42-52) % MCV 120.5 H (80-100) fL MCH 39.4 H (25-34) pg MCHC 32.7 (32-36) g/dL RDW Std Deviation 103.8 H (36.4-46.3) fL RDW Coeff of Yasmine 23.4 H (11.5-14.5) % Plt Count 220 (130-400) K/uL MPV 12.9 H (7.4-10.4) fL Absolute Nucleated RBC 0.23 H (0-0) K/uL Nucleated RBC % (auto) 1.8 % Neutrophils % (Manual) 81.7 % Lymphocytes % (Manual) 9.6 % Monocytes % (Manual) 7.8 % Myelocytes % (Man) 0.9 % Neutrophils # (Manual) 10.34 H (1.4-6.5) K/uL Total Absolute Neuts 10.34 H (1.4-6.5) K/uL Lymphocytes # (Manual) 1.21 (1.2-3.4) K/uL Total Abs Lymphocytes 1.21 (1.2-3.4) K/uL Monocytes # (Manual) 0.99 H (0.11-0.59) K/uL Myelocytes # (Manual) 0.11 H (0-0) K/uL Anisocytosis Present Macrocytosis Present Target Cells 1+ PT 28.1 H (9.0-12.0) Seconds INR 2.8 H (0.9-1.1) Sodium 139 (136-145) mmol/L Potassium 4.3 (3.5-5.1) mmol/L Chloride 102 (98-107) mmol/L Carbon Dioxide 34 H (21-32) mmol/L Anion Gap 3.0 (3-11) BUN 33 H (7-18) mg/dl Creatinine 1.19 (0.6-1.4) mg/dl Est Cr Clr Drug Dosing 41.2 ml/min Est GFR ( Amer) 67.4 Est GFR (Non-Af Amer) 58.2 BUN/Creatinine Ratio 27.3 H (10-20) Glucose 79 (70-99) mg/dl Calcium 8.7 (8.5-10.1) mg/dl PG Care Time/CCT Total # of Minutes Spent Total Time Spent with Patient: Total time spent is greater than 50% in coordination of care (as documented) at patient's floor/unit and/or counseling patient: Coding Level of Care Code 49706 Subseq Hosp Care Lvl 2 Diagnoses Atrial fibrillation with rapid ventricular response I48.91 Acute hypotension I95.9 Hypoxia R09.02 Prostate cancer C61 Chronic left ventricular systolic heart failure I50.22 Dementia F03.90 Hyperlipidemia E78.5 Acute and chronic respiratory failure with hypoxia J96.21 Chronic obstructive pulmonary disease J44.9 Inguinal hernia K40.90 LBBB (left bundle branch block) I44.7 Hypothyroidism E03.9 DVT prophylaxis Z29.9
[2020-07-13] MEDS ORDERED: WARFARIN SOD 5 MG TAB PO ONE (20:30)
[2020-07-13] MEDS: ATORVASTATIN 10 MG TAB PO SCH (20:50)
[2020-07-14] MEDS: LEVOTHYROXINE SODIUM 50 MCG TABLET PO SCH (04:15)
[2020-07-14 06:14] LABS: INR 1.9 (0.9-1.1); Prothrombin Time 19.3 Seconds (9.0-12.0)
[2020-07-14 06:24] LABS: BUN Creatinine Ratio 30.3 (10-20); Calcium 7.6 mg/dl (8.5-10.1); Creatinine Clr Calc Pharmacy 48.1 ml/min; Est GFR (African American) 81.2; Est GFR (Non-African American) 70.1; Potassium 4.6 mmol/L (3.5-5.1)
[2020-07-14 07:23] LABS: Hematocrit (blood only) 35.9 % (42-52); Mean Corpuscular Hemoglobin 39.5 pg (25-34); Mean Corpuscular Volume 118.1 fL (80-100); Mean Platelet Volume 12.1 fL (7.4-10.4); Nucleated RBC # (auto) 0.16 K/uL (0-0); Nucleated RBC % (auto) 1.4 %; Platelet Count 184 K/uL (130-400); RDW Coefficient of Variation 23.4 % (11.5-14.5); RDW Standard Deviation 103.4 fL (36.4-46.3); Red Blood Count 3.04 M/uL (4.7-6.1); White Blood Count 11.54 K/uL (4.8-10.8)
[2020-07-14 07:24] LABS: Mean Corpuscular Hgb Conc 33.4 g/dL (32-36)
[2020-07-14 08:16] LABS: Basophils # (auto) 0.03 K/uL (0-0.2); Basophils % (auto) 0.3 %; Eosinophils # (auto) 0.05 K/uL (0-0.5); Eosinophils % (auto) 0.4 %; Immature Granulocytes % (auto) 5.2 %; Lymphocytes # (auto) 0.56 K/uL (1.2-3.4); Lymphocytes % (auto) 4.9 %; Macrocytosis Present; Monocytes # (auto) 0.82 K/uL (0.11-0.59); Monocytes % (auto) 7.1 %; Neutrophils # (auto) 9.48 K/uL (1.4-6.5); Neutrophils % (auto) 82.1 %; Target Cells 1+
[2020-07-14] MEDS: BICALUTAMIDE 50 MG TAB PO SCH (08:20)
[2020-07-14] MEDS: METOPROLOL SUCC 25MG EXT REL TAB PO SCH (08:20)
[2020-07-14] MEDS: UMECLIDINIUM BROMIDE 62.5MCG/BLISTER 7 PUFFS/INHALER INH SCH (08:21)
[2020-07-14] MEDS ORDERED: levoFLOXacin 750 MG TAB PO SCH (11:00)
[2020-07-14] MEDS: FLUTICASONE/VILANTEROL 200/25MCG 14 PUFFS/INHALER INH SCH (11:57)
[2020-07-14] MEDS: WARFARIN SOD 5 MG TAB PO SCH (16:39)
--- NOTE | 2020-07-14 19:35 | Hospitalist Progress Note ---
Date of Service July 14, 2020 Assessment & Plan (1) Atrial fibrillation with rapid ventricular response: Marcos Domingo is a 80 year old man with metastatic prostate cancer who is here for evaluation of confusion, A fib with RVR and hypotension, pneumonia Sepsis/Elevated lactate/pneumonia-difficult to say if truly has infection, but could be recurrent pneumonia-perhaps aspiration pneumonia With acute metabolic encephalopathy which is now completely resolved after treatment with antibiotics Tachycardic, hypotensive elevated lactate on admission -now resolved Most likely source is pulmonary given recently treated pneumonia Blood cultures-no growth UA without evidence of infection - treated with cefepime for gram-negative pneumonia and received 1 dose of vancomycin for MRSA pneumonia coverage-now discontinued as MRSA nasal swab was negative -converted to po Levaquin to finish out a 7 day course with last dose on 07/15 -Speech consultation to assess for aspiration--now that he is mentating better,I have asked speech therapy to reassess--> now advanced diet to minced and moist and tolerating well Bradypnea--> on hospital day # 1 and 2, was obtunded off and on throughout the day with very low respiratory rates. Suspect acute metabolic encephalopathy in the setting of suspected central sleep apnea and pneumonia; could be related to hypothyroidism and/or severe dementia. However, since then his respiratory status is completely back to baseline. Sleeps excessively as per for most of the day Pulse ox is acceptable on 2 L nasal cannula -Treating hypothyroidism -ABG performed which shows some mild chronic CO2 retention -He is known to frequently take his oxygen off, unclear if he would tolerate BiPAP while sleeping Severe dementia-patient has been rapidly declining in the last 6 months, but has had a diagnosis of dementia for 18 months. He does converse at times but is only awake usually from 2 PM to 7 or 8 PM each day. reports he at times has some "lucid moments." Since 07/10, he is certainly more conversive, cooperative, but remains with significant cognitive impairment Has to be reminded to eat and drink at times Does have moments of significant agitation and violent outbursts as per Question if has Lewy body dementia -Palliative care consultation appreciated-had family meeting to discuss goals of care given multiple significant comorbidities and recurrent hospitalizations- plan for home with hospice on Wednesday Atrial Fibrillation with Rapid Ventricular response Initially was improved with gentle fluid administration, but then continued to have uncontrolled rates in 130s-140s at times--> now much improved with increasing dose of metoprolol -increased Toprol XL to 75mg in the AM -Continue warfarin 5 mg daily and follow routine morning INR's, adjust dose as needed-Coumadin was held x1 dose on 07/12 for supratherapeutic INR but now is restarted -Appreciate cardiology consultation -Now off telemetry Acute on chronic systolic CHF Patient with bilateral pleural effusions, cardiomegaly and pulmonary vascular congestion. BNP greater than 35,000. Chest x-ray on 07/09 appears slightly worse. He is intravascularly volume depleted secondary to hypoalbuminemia and further IV diuretics will likely not be beneficial -gave 1 dose of IV albumin on 07/10 and edema is improved somewhat with less anasarca He is not symptomatic at all from a respiratory standpoint Overall very poor prognosis and multiple comorbidities-palliative care consultation appreciated -Does not appear to be on diuretics on home medication list at this time-will diurese if becomes symptomatic from a pulmonary standpoint CRIS-creatinine 1.5 on admission now down to 1.1 likely prerenal from intravascular volume depletion, poor p.o. intake Given 1.6 L nss in ED and improved -Follow BMP -gave IV albumin x 1 dose as above COPD Patient with chronic hypoxia with some acute component here as per at home oxygen levels were dropping at times. Doing well here on 2-3 L He is not dyspneic On 4 L O2 at home, but only requiring 3 L here now Duonebs prn Prostate Cancer Metastatic, to spine and pelvis Being treated with androgen blockade, lupron depot injection q 6 months and bicalutamide daily -his hospice agency is allowing him to stay on his Casodex upon dc to home hospice which ws a stipulation of the family for him to enroll in hospice Hypothyroidism-TSH is 11 here and reports he was recently started on levothyroxine 25 mcg daily as an outpatient and was to increase dose to 50 mcg daily on 07/12 Given that he likely has gut edema as he has anasarca, treated him here with IV levothyroxine 25 mcg once daily especially in the setting of profound lethargy Had significant improvement in lethargy (unclear if from teating for PNA or with levothyroxine) -convert to po levothyroxine 50mcg daily upon discharge DVT PPx: Warfarin Dispo: Continued stay, plan for home with Hospice on Wednesday Discussed care with Cathy, on phone DNR/DNI (2) Acute hypotension: (3) Hypoxia: (4) Prostate cancer: (5) Chronic left ventricular systolic heart failure: (6) Dementia: (7) Hyperlipidemia: (8) Acute and chronic respiratory failure with hypoxia: (9) Chronic obstructive pulmonary disease: (10) Inguinal hernia: (11) LBBB (left bundle branch block): (12) Hypothyroidism: (13) DVT prophylaxis: Admission and Anticipated Discharge Date Admission Date: July 08, 2020 Subjective Pt pleasantly confused, tells me about a girl with a linen sheet today. Denies pain. Appears comfortable. tells me that Hospice dropped off the bed today but they haven't spoken to the agency yet. Hopeful for discharge to home with hospice tomorrow Review of Systems Review of Systems: All systems reviewed & are unremarkable except as noted in HPI & below Physical Exam Constitutional: + cachectic and cooperative; no acute distress Eyes: + anicteric sclerae ENMT: Mouth: + dentition abnormality Neck: trachea midline, no thyromegaly Respiratory: normal respiratory effort Auscultation: + diminished lung sounds (At the bases); no wheezes Cardiovascular: Rate/Rhythm: regular rate and + irregularly irregular Heart Sounds: no murmur Extremities: + edema ( now only trace pitting edema of arms, legs) Chest (Breasts): Chest: normal inspection of chest Gastrointestinal (Abdomen): normal bowel sounds, soft, nontender, no hepatosplenomegaly Musculoskeletal: Extremities: no cyanosis and no clubbing Skin: no rashes, warm and dry Neurologic: awake; not obtunded Speech / Cognition: normal speech Psychiatric: Orientation: alert, oriented to person and cooperative; + not oriented to place and + not oriented to time Eye Contact: good eye contact Affect: euthymic affect Cognition: + recent memory not intact Results & Data Results & Data ([facility]) Vital Signs (Past 12 Hours) Vital Signs Temp Pulse Resp BP Pulse Ox 07/14/20 15:32 36.8 C 100 H 18 117/69 96 Laboratory Results 07/14/20 07/14/20 07/14/20 Range/Units 07:11 05:35 05:35 WBC 11.54 H Cancelled RBC 3.04 L Cancelled Hgb 12.0 L Cancelled Hct 35.9 L Cancelled MCV 118.1 H Cancelled MCH 39.5 H Cancelled MCHC 33.4 Cancelled RDW Std Deviation 103.4 H Cancelled RDW Coeff of Yasmine 23.4 H Cancelled Plt Count 184 Cancelled MPV 12.1 H Cancelled Immature Gran % (Auto) 5.2 Cancelled Neut % (Auto) 82.1 Cancelled Lymph % (Auto) 4.9 Cancelled [place] % (Auto) 7.1 Cancelled Eos % (Auto) 0.4 Cancelled Baso % (Auto) 0.3 Cancelled Neut # (Auto) 9.48 H Cancelled Lymph # (Auto) 0.56 L Cancelled [place] # (Auto) 0.82 H Cancelled Eos # (Auto) 0.05 Cancelled Baso # (Auto) 0.03 Cancelled Immature Gran # (Auto) 0.60 H Cancelled Absolute Nucleated RBC 0.16 H Cancelled Nucleated RBC % (auto) 1.4 Cancelled Neutrophils % (Manual) Cancelled Band Neutrophils % Cancelled Lymphocytes % (Manual) Cancelled Prolymphocyte % Cancelled Reactive Lymphs % (Man) Cancelled Monocytes % (Manual) Cancelled Eosinophils % (Manual) Cancelled Basophils % (Manual) Cancelled Metamyelocytes % (Man) Cancelled Myelocytes % (Man) Cancelled Promyelocytes % (Man) Cancelled Blast Cells % (Manual) Cancelled Plasma Cell % (Manual) Cancelled Other Cells % Cancelled Nucleated RBC % Cancelled Neutrophils # (Manual) Cancelled Band Neutrophils # Cancelled Total Absolute Neuts Cancelled Lymphocytes # (Manual) Cancelled Prolymphocyte # Cancelled Reactive Lymphs # Cancelled Total Abs Lymphocytes Cancelled Monocytes # (Manual) Cancelled Eosinophils # (Manual) Cancelled Basophils # (Manual) Cancelled Metamyelocytes # (Man) Cancelled Myelocytes # (Manual) Cancelled Promyelocytes # (Man) Cancelled Blast Cells # (Man) Cancelled Plasma Cell # (Manual) Cancelled Other Cells # Cancelled Nucleated RBCs # (Man) Cancelled Hypersegmented Neuts Cancelled Hyposegmented Neuts Cancelled Hypogranular Neuts Cancelled Large Granular Lymphs Cancelled # Lrg Granular Lymphs Cancelled Hairy Cells Cancelled Smudge Cells Cancelled Toxic Granulation Cancelled Toxic Vacuolation Cancelled Dohle Bodies Cancelled Eren Rods Cancelled Platelet Estimate Cancelled Hypogranular Platelets Cancelled Clumped Platelets Cancelled Giant Platelets Cancelled Platelet Satelliting Cancelled RBC Morphology Cancelled Polychromasia Cancelled Hypochromasia Cancelled Poikilocytosis Cancelled Basophilic Stippling Cancelled Anisocytosis Cancelled Microcytosis Cancelled Macrocytosis Present Cancelled Spherocytes Cancelled Pappenheimer Bodies Cancelled Sickle Cells Cancelled Target Cells 1+ Cancelled Tear Drop Cells Cancelled Ovalocytes Cancelled Stomatocytes Cancelled Meza-Crossett Bodies Cancelled Echinocytes Cancelled Acanthocytes (Spur) Cancelled Rouleaux Cancelled RBC Agglutinates Cancelled Schistocytes Cancelled RBC Morph Comment Cancelled Sezary Cell Cancelled PT 19.3 H (9.0-12.0) Seconds INR 1.9 H (0.9-1.1) Sodium (136-145) mmol/L Potassium (3.5-5.1) mmol/L Chloride (98-107) mmol/L Carbon Dioxide (21-32) mmol/L Anion Gap (3-11) BUN (7-18) mg/dl Creatinine (0.6-1.4) mg/dl Est Cr Clr Drug Dosing ml/min Est GFR ( Amer) Est GFR (Non-Af Amer) BUN/Creatinine Ratio (10-20) Glucose (70-99) mg/dl Calcium (8.5-10.1) mg/dl Specimen Hemolysis 07/14/20 Range/Units 05:35 WBC RBC Hgb Hct MCV MCH MCHC RDW Std Deviation RDW Coeff of Yasmine Plt Count MPV Immature Gran % (Auto) Neut % (Auto) Lymph % (Auto) [place] % (Auto) Eos % (Auto) Baso % (Auto) Neut # (Auto) Lymph # (Auto) [place] # (Auto) Eos # (Auto) Baso # (Auto) Immature Gran # (Auto) Absolute Nucleated RBC Nucleated RBC % (auto) Neutrophils % (Manual) Band Neutrophils % Lymphocytes % (Manual) Prolymphocyte % Reactive Lymphs % (Man) Monocytes % (Manual) Eosinophils % (Manual) Basophils % (Manual) Metamyelocytes % (Man) Myelocytes % (Man) Promyelocytes % (Man) Blast Cells % (Manual) Plasma Cell % (Manual) Other Cells % Nucleated RBC % Neutrophils # (Manual) Band Neutrophils # Total Absolute Neuts Lymphocytes # (Manual) Prolymphocyte # Reactive Lymphs # Total Abs Lymphocytes Monocytes # (Manual) Eosinophils # (Manual) Basophils # (Manual) Metamyelocytes # (Man) Myelocytes # (Manual) Promyelocytes # (Man) Blast Cells # (Man) Plasma Cell # (Manual) Other Cells # Nucleated RBCs # (Man) Hypersegmented Neuts Hyposegmented Neuts Hypogranular Neuts Large Granular Lymphs # Lrg Granular Lymphs Hairy Cells Smudge Cells Toxic Granulation Toxic Vacuolation Dohle Bodies Eren Rods Platelet Estimate Hypogranular Platelets Clumped Platelets Giant Platelets Platelet Satelliting RBC Morphology Polychromasia Hypochromasia Poikilocytosis Basophilic Stippling Anisocytosis Microcytosis Macrocytosis Spherocytes Pappenheimer Bodies Sickle Cells Target Cells Tear Drop Cells Ovalocytes Stomatocytes Meza-Crossett Bodies Echinocytes Acanthocytes (Spur) Rouleaux RBC Agglutinates Schistocytes RBC Morph Comment Sezary Cell PT (9.0-12.0) Seconds INR (0.9-1.1) Sodium 141 (136-145) mmol/L Potassium 4.6 (3.5-5.1) mmol/L Chloride 106 (98-107) mmol/L Carbon Dioxide 29 (21-32) mmol/L Anion Gap 6.0 (3-11) BUN 31 H (7-18) mg/dl Creatinine 1.02 (0.6-1.4) mg/dl Est Cr Clr Drug Dosing 48.1 ml/min Est GFR ( Amer) 81.2 Est GFR (Non-Af Amer) 70.1 BUN/Creatinine Ratio 30.3 H (10-20) Glucose 75 (70-99) mg/dl Calcium 7.6 L (8.5-10.1) mg/dl Specimen Hemolysis PG Care Time/CCT Total # of Minutes Spent Total Time Spent with Patient: Total time spent is greater than 50% in coordination of care (as documented) at patient's floor/unit and/or counseling patient: Coding Level of Care Code 88494 Subseq Hosp Care Lvl 1 Diagnoses Atrial fibrillation with rapid ventricular response I48.91 Acute hypotension I95.9 Hypoxia R09.02 Prostate cancer C61 Chronic left ventricular systolic heart failure I50.22 Dementia F03.90 Hyperlipidemia E78.5 Acute and chronic respiratory failure with hypoxia J96.21 Chronic obstructive pulmonary disease J44.9 Inguinal hernia K40.90 LBBB (left bundle branch block) I44.7 Hypothyroidism E03.9 DVT prophylaxis Z29.9
[2020-07-14] MEDS: ATORVASTATIN 10 MG TAB PO SCH (20:59)
[2020-07-15] MEDS: LEVOTHYROXINE SODIUM 50 MCG TABLET PO SCH (05:22)
[2020-07-15] MEDS: UMECLIDINIUM BROMIDE 62.5MCG/BLISTER 7 PUFFS/INHALER INH SCH (08:37)
[2020-07-15] MEDS: METOPROLOL SUCC 25MG EXT REL TAB PO SCH (08:38)
[2020-07-15] MEDS: BICALUTAMIDE 50 MG TAB PO SCH (08:38)
[2020-07-15] MEDS: FLUTICASONE/VILANTEROL 200/25MCG 14 PUFFS/INHALER INH SCH (11:44)
--- NOTE | 2020-07-15 13:04 | Discharge Summary ---
Date of Service July 15, 2020 Admission HPI Per Admitting Provider Mr. Marcos Domingo is a 80 year old man with PMH significant for Prostate cancer (metastatic to spine and pelvis), CHF (systolic dysfunction, EF of 25-30% has declined ICD), COPD (on Home O2 4L at baseline Declined PFT's in past), Atrial Fibrillation on warfarin rate controlled with metoprolol who presents today for woresning weakness, poor oral intake, and a rapid heart rate. He was twice admitted to [facility] and treated for pneumonia and a fib RVR. He was recently discharged on no antibiotics, but his home health team felt he was still having PNA symptoms and he was started on outpatient antibiotics. He is altered at baseline, but says that he has been more altered of late. History was severely limited by patient's mental status and only being present for a portion of my evaluation. On presentation to ED patient was tachycardic in A fib rvr with rates in the 140's, patient was hypotensive with pressure 89/65, Labwork was significant for some anemia, chronic but continuing to be low with hemoglobin of 11.2, elevated neutrophil count, CRIS with creatinine elevated from normal baseline to 1.56, hypoalbuminemia of 2.8, and normal procalcitonin. imaging significant for chest x ray increased heart size secondary to either worsening cardiomegaly vs pericardial effusion, a well as bilateral pleural effusions. Chest CT showing pleural effusions and hilar lymphadenopathy. Head CT negative Principal Diagnosis Sepsis due to pneumonia Discharge Exam Constitutional well developed, well nourished and cooperative; no acute distress Eyes PERRL, conjunctivae normal, anicteric sclerae ENMT external ear and nose normal, oropharynx normal Mouth: + poor dentition Neck trachea midline, no thyromegaly Respiratory normal respiratory effort, lungs clear to auscultation Cardiovascular Rate/Rhythm: regular rate and + irregularly irregular Heart Sounds: normal S1 and normal S2; no murmur Extremities: normal capillary refill; no edema Gastrointestinal (Abdomen) normal bowel sounds, soft, nontender, no hepatosplenomegaly Musculoskeletal no cyanosis or clubbing, extremities motor strength 5/5 Skin no rashes, warm and dry Neurologic patellar DTR's 2+ bilat, sensation intact and PERRL, EOMI, accommodation nl, no face palsy, no dysarthria Psychiatric Orientation: alert, oriented to person and cooperative; + not oriented to place and + not oriented to time Lymphatic no cervical or axillary lymphadenopathy Discharge Data Allergies Allergy/AdvReac Type Severity Reaction Status Date / Time prednisone Allergy Severe SWELLING, Verified 07/08/20 15:45 TACHYCARDIA, RENAL FAILURE Consultations 07/08/20 19:20 Consult Cardiology Routine Consult Case Management - Discharge Planning Routine 07/09/20 09:38 Consult Palliative Care Routine Ordered Studies 07/08/20 19:20 CT chest wo con Urgent 07/08/20 19:37 CT head/brain wo con Stat 07/09/20 11:08 CT abd pelvis IV con only Urgent Hospital Course (1) Atrial fibrillation with rapid ventricular response: Marcos Domingo is a 80 year old man with metastatic prostate cancer who is here for evaluation of confusion, A fib with RVR and hypotension, pneumonia Sepsis/Elevated lactate/pneumonia-difficult to say if truly has infection, but could be recurrent pneumonia-perhaps aspiration pneumonia With acute metabolic encephalopathy which is now completely resolved after treatment with antibiotics Tachycardic, hypotensive elevated lactate on admission -now resolved Most likely source is pulmonary given recently treated pneumonia Blood cultures-no growth UA without evidence of infection - treated with cefepime for gram-negative pneumonia -converted to po Levaquin to finish out a 7 day course with last dose on 07/15 -Speech consultation to assess for aspiration--now that he is mentating better,I have asked speech therapy to reassess--> now advanced diet to minced and moist and tolerating well, continue on discharge aspiration precautions/instructions provided Bradypnea--> on hospital day # 1 and 2, was obtunded off and on throughout the day with very low respiratory rates. Suspect acute metabolic encephalopathy in the setting of suspected central sleep apnea and pneumonia; could be related to hypothyroidism and/or severe dementia. However, since then his respiratory status is completely back to baseline. Sleeps excessively as per for most of the day Pulse ox is acceptable on 2 L nasal cannula -Treating hypothyroidism -ABG performed which shows some mild chronic CO2 retention -He is known to frequently take his oxygen off, unclear if he would tolerate BiPAP while sleeping Severe dementia-patient has been rapidly declining in the last 6 months, but has had a diagnosis of dementia for 18 months. He does converse at times but is only awake usually from 2 PM to 7 or 8 PM each day. reports he at times has some "lucid moments." Since 07/10, he is certainly more conversive, cooperative, but remains with significant cognitive impairment Has to be reminded to eat and drink at times Does have moments of significant agitation and violent outbursts as per Question if has Lewy body dementia -Palliative care consultation appreciated-had family meeting to discuss goals of care given multiple significant comorbidities and recurrent hospitalizations- plan for home with hospice on Wednesday Atrial Fibrillation with Rapid Ventricular response Initially was improved with gentle fluid administration, but then continued to have uncontrolled rates in 130s-140s at times--> now much improved with increasing dose of metoprolol -increased Toprol XL to 75mg in the AM -Continue warfarin 5 mg daily and follow routine morning INR's, adjust dose as needed-Coumadin was held x1 dose on 07/12 for supratherapeutic INR but now is restarted -Appreciate cardiology consultation -Now off telemetry Acute on chronic systolic CHF Patient with bilateral pleural effusions, cardiomegaly and pulmonary vascular congestion. BNP greater than 35,000. Chest x-ray on 07/09 appears slightly worse. He is intravascularly volume depleted secondary to hypoalbuminemia and further IV diuretics will likely not be beneficial -gave 1 dose of IV albumin on 07/10 and edema is improved somewhat with less anasarca He is not symptomatic at all from a respiratory standpoint Overall very poor prognosis and multiple comorbidities-palliative care consultation appreciated -Does not appear to be on diuretics on home medication list at this time-will diurese if becomes symptomatic from a pulmonary standpoint CRIS-creatinine 1.5 on admission now down to 1.1 likely prerenal from intravascular volume depletion, poor p.o. intake Given 1.6 L nss in ED and improved -Follow BMP -gave IV albumin x 1 dose as above COPD Patient with chronic hypoxia with some acute component here as per at home oxygen levels were dropping at times. Doing well here on 2-3 L He is not dyspneic On 4 L O2 at home, but only requiring 3 L here now Duonebs prn Prostate Cancer Metastatic, to spine and pelvis Being treated with androgen blockade, lupron depot injection q 6 months and bicalutamide daily -his hospice agency is allowing him to stay on his Casodex upon dc to home hospice which ws a stipulation of the family for him to enroll in hospice Hypothyroidism-TSH is 11 here and reports he was recently started on levothyroxine 25 mcg daily as an outpatient and was to increase dose to 50 mcg daily on 07/12 Given that he likely has gut edema as he has anasarca, treated him here with IV levothyroxine 25 mcg once daily especially in the setting of profound lethargy Had significant improvement in lethargy (unclear if from teating for PNA or with levothyroxine) -convert to po levothyroxine 50mcg daily upon discharge DVT PPx: Warfarin Dispo: Continued stay, plan for home with Hospice on Wednesday Discussed care with , Cathy, on phone DNR/DNI (2) Acute hypotension: (3) Hypoxia: (4) Prostate cancer: (5) Chronic left ventricular systolic heart failure: (6) Dementia: (7) Hyperlipidemia: (8) Acute and chronic respiratory failure with hypoxia: (9) Chronic obstructive pulmonary disease: (10) Inguinal hernia: (11) LBBB (left bundle branch block): (12) Hypothyroidism: Total Time Total Time Spent Total Time Spent (In Minutes): 25 Total Time Includes: Examination of the Patient, Discharge Planning and Medication Reconciliation Discharge Plan Discharge Items Patient Disposition: Hospice - Home Reason For Visit: TACHYCARDIA, PALPITATIONS Discharge Diagnosis: Dementia Acute kidney injury Aspiration Prostate cancer Condition on Discharge: Fair Goals: hospice, palliative care Activity: Per Instructions section Activity Comment: as tolerated, mostly bedrest Non-emergency contact: Primary Care Provider Call non-emergency contact if: you have any medication questions, your symptoms worsen and your pain is not controlled Follow-up/Referrals: Kanika Daniels MD [Primary Care Provider] - Diet: Heart Healthy Diet Texture: Dental soft (bite-sized) Diet Comment: minced and moist diet Addtl Attending Provider Instructions: Medications: - TOPROL: dose increased to 75mg from 50mg for better heart rate control - SYNTHROID: note that dose should be 50mcg daily Pneumonia, hypoxia, aspiration completed 7 days of antibiotics, responded well speech therapy recommends minced and moist diet to help prevent aspiration try to sit upright when eating, stay upright for at least 30 minutes, frequent oral hygiene to limit aspiration of oral bacteria home on hospice therapy Atrial fibrillation: chronic issue but rapid heart rates while here responded well to increased dose of Toprol at 75mg daily continue on Coumadin due to multiple co-morbidities and frequent hospitalizations and dementia, will transition to hospice follow up with hospice services once home for any further medication adjustments, treatment of symptoms such as pain or shortness of breath Pending Studies at Discharge: No Stand-Alone Forms: My [facility] [email or web address], Smoking Cessation Medications and DC Order Prescriptions: New metoprolol succinate 25 mg Tablet Extended Release 24 Hr 75 mg PO DAILY 30 Days Qty: 90 RF: 3 Continued Breo Ellipta 200-25 mcg/dose blister with device 1 inh INHALATION QDL Qty: 1 RF: 5 bicalutamide 50 mg tablet 50 mg PO DAILY Qty: 30 RF: 11 Spiriva Respimat 2.5 mcg/actuation mist 2 puffs INH DAILY RF: 0 atorvastatin 10 mg Tablet 10 mg PO QPM RF: 0 warfarin 5 mg Tablet 5 mg PO Q2D RF: 0 albuterol sulfate [Ventolin HFA] 90 mcg/actuation Hfa Aerosol Inhaler 2 puff INHALATION Q4 PRN (Reason: Shortness Of Breath) RF: 0 tramadol 50 mg tablet 50 mg PO TID RF: 0 warfarin 5 mg Tablet 2.5 mg PO Q2D RF: 0 albuterol sulfate 1.25 mg/3 mL solution for nebulization 1.25 mg continuous nebulization QID PRN (Reason: Shortness Of Breath Or Wheezing) RF: 0 Changed levothyroxine 50 mcg tablet 50 mcg PO .DAILY/UD 30 Days Qty: 30 RF: 3 Discontinued metoprolol succinate 50 mg tablet extended release 24 hr 50 mg PO DAILY RF: 0 Discharge Orders: Discharge Order (Routine); Ordered 07/15/20 Ordered By: Umang Lee/Other Patient Handouts: Understanding Heart Palpitations Admission Data Admit Date/Time: 07/08/20 18:20 Attending Provider: Umang Bear Admit Provider: Jose Carlos Valle Primary Care Provider: Kanika Daniels Other Providers: Sidney Lanier ; Tomeka Louis Other Interventions: Discharge Summary Assessment (RN) Last Done: 07/15/20 13:13 Coding Level of Care Code D/C Day Management <30 mins Diagnoses Atrial fibrillation with rapid ventricular response I48.91 Acute hypotension I95.9 Hypoxia R09.02 Prostate cancer C61 Chronic left ventricular systolic heart failure I50.22 Dementia F03.90 Hyperlipidemia E78.5 Acute and chronic respiratory failure with hypoxia J96.21 Chronic obstructive pulmonary disease J44.9 Inguinal hernia K40.90 LBBB (left bundle branch block) I44.7 Hypothyroidism E03.9
== END 2020-07-15 14:22 | disposition hospice, home (50) | DRG 871 ==
LOC: ED 13:33 → 2S 18:20 → SUATTDRO 18:20 → 2S 18:42 → 3E 07-12 17:19